=== PATIENT | male | born 1980 | race Caucasian/White ===

== ENCOUNTER 2016-08-30 06:39 | Day surgery (SDC) | payer BC ==
[~2016-08-30] VITALS: Ht 180.3 cm; Wt 108.9 kg
[~2016-08-30 06:39] MED LIST: CEFAZOLIN 2GM PREMIX 50 ML IV ONE; HYDR-2762 PO; LORA0.5T PO
[2016-08-30] MEDS ORDERED: PROCHLORPERAZINE 10 MG/2 ML VIAL. IV PRN ×2 (07:00→10:45)
[2016-08-30] MEDS ORDERED: LIDOCAINE 1% 1 ML SYRINGE. ID PRN ×2 (07:00→10:45)
[2016-08-30] MEDS ORDERED: IV RINGERS,LACTATED 1000ML 1,000 ML IV SCH ×2 (07:00→10:35)
[2016-08-30] MEDS ORDERED: FENTANYL PF 100 MCG/2 ML VIAL. IV PRN ×3 (07:00→10:45)
[2016-08-30] MEDS ORDERED: ONDANSETRON PF 4 MG/2 ML VIAL. IV PRN ×2 (07:00→10:45)
[2016-08-30] MEDS ORDERED: MIDAZOLAM HCL 2 MG/2 ML VIAL. IV ONE (07:30)
[2016-08-30] MEDS ORDERED: BUPIVACAINE-EPI 0.5%-1:200000 50 ML VIAL. ONE (07:58)
[2016-08-30] MEDS ORDERED: PROPOFOL 20 ML IV ONE ×2 (08:01→09:12)
[2016-08-30] MEDS ORDERED: FENTANYL PF 100 MCG/2 ML VIAL. ONE (08:01)
[2016-08-30] MEDS ORDERED: DEXAMETHASONE SOD PHOS 20 MG/5 ML VIAL. ONE (08:01)
[2016-08-30] MEDS ORDERED: ONDANSETRON PF 4 MG/2 ML VIAL. ONE (08:01)
[2016-08-30] MEDS ORDERED: MIDAZOLAM HCL 2 MG/2 ML VIAL. ONE (08:01)
[2016-08-30] MEDS ORDERED: LIDOCAINE 2% 100 MG/5 ML DISP.SYRIN. ONE (08:01)
[2016-08-30] MEDS ORDERED: FAMOTIDINE 20 MG/2 ML VIAL ONE (09:12)
[2016-08-30] MEDS ORDERED: DIPHENHYDRAMINE 50 MG/ML VIAL ONE (09:33)
[2016-08-30] MEDS: FENTANYL PF 100 MCG/2 ML VIAL. IV PRN ×4 (10:26→11:17)
[2016-08-30] MEDS ORDERED: MORPHINE SULFATE 2 MG/ML DISP.SYRIN. ONE (10:39)
[2016-08-30] MEDS ORDERED: HYDROMORPHONE 2 MG/ML VIAL. IV PRN (10:45)
[2016-08-30] MEDS: MORPHINE SULFATE 2 MG/ML DISP.SYRIN. IV PRN ×2 (10:45→10:58)
[2016-08-30] MEDS ORDERED: SEVOFLURANE 61 TO 120 MINUTES. IH ONE (10:58)
--- NOTE | 2016-08-30 10:58 | RAD ---
Left supraclavicular region ultrasound, 08/30/2016: History: Adenopathy, preop evaluation The left supraclavicular region was carefully scanned. There are numerous hypoechoic nodules at this level compatible with enlarged lymph nodes. The largest of these measures 2.5 x 1.4 cm. The skin surface was marked directly over the most superficial of these nodes as requested, to aid in surgical localization. The largest node lies more medially. IMPRESSION: Left supraclavicular adenopathy.
[2016-08-30 11:01] LABS: BASO % 1 % (0-3); EOS % 4 % (0-3); HEMATOCRIT 43.2 % (39.0-53.0); HEMOGLOBIN 14.3 g/dL (13.0-17.5); LYMPH # 1.5 x10^3/uL (1.0-4.8); LYMPH % 23 % (24-48); MEAN CORPUSCULAR HEMOGLOBIN 27 pg (25-35); MEAN CORPUSCULAR HGB CONC 33 g/dL (31-37); MEAN CORPUSCULAR VOLUME 81 fL (79-100); MONO % 5 % (0-9); NEUT % 68 % (31-73); PLATELET COUNT 278 x10^3/uL (140-400); RED BLOOD COUNT 5.33 x10^6/uL (4.30-5.70); RED CELL DISTRIBUTION WIDTH 13.9 % (11.5-14.5); WHITE BLOOD COUNT 6.8 x10^3/uL (4.0-11.0)
[2016-08-30] MEDS ORDERED: hydrALAZINE 20 MG/ML VIAL. ONE (11:12)
[2016-08-30 11:14] LABS: CALCIUM 8.8 mg/dL (8.5-10.1); CREATININE 1.4 mg/dL (0.7-1.3); GFR 56.7; POTASSIUM 4.8 mmol/L (3.5-5.1)
[2016-08-30] MEDS ORDERED: IOHEXOL 240 MG/ML 50ML VIAL. PO ONE (11:15)
[2016-08-30] MEDS ORDERED: IOHEXOL 300 MG/ML 75 ML VIAL IV ONE (11:15)
[2016-08-30] MEDS ORDERED: hydrALAZINE 20 MG/ML VIAL. IVP ONE (11:15)
--- NOTE | 2016-08-30 11:33 | PDOC ---
BRIEF OPERATIVE NOTE Date: Aug 30, 2016 Pre-Op Diagnosis supraclavicular lymphadenopathy, L>R Post-Op Diagnosis same 2/2 metastatic adenocarcinoma Procedure Performed biopsy left supraclavicular LNs Surgeon Kelby Anesthesia Type: General Blood Loss 5cc IV Fluid 400cc Specimens Obtained LNs Findings firm, adherent LN Complications none Additional Remarks Wk # [id number] CELINA DE MD Aug 30, 2016 11:33
--- NOTE | 2016-08-30 11:34 | DISCH ---
DISCHARGE INSTRUCTIONS Condition on Discharge Condition on Discharge: Stable Activity After Discharge Activity Instructions for Disc: Activity as tolerated, Avoid exertion Lifting Instructions after Dis: No heavy lifting Driving Instructions after Dis: Do not drive today Wound Incision Care Wound/Incision Care: Ice to area for comfort Other wound/incision instructi: december shower Sunday Follow-Up Follow up with: Kelby next week CELINA DE MD Aug 30, 2016 11:34
[2016-08-30] MEDS ORDERED: LORAZEPAM 2 MG/ML VIAL IV PRN (11:45)
[2016-08-30 11:50] VITALS: BP 138/83
[2016-08-30] MEDS ORDERED: OXYC-250 PO (11:55)
[2016-08-30] MEDS ORDERED: SENN1TAB70 PO (11:56)
--- NOTE | 2016-08-30 12:53 | RAD ---
CT of the chest with contrast, 08/30/2016: History: Lymphadenopathy Multidetector CT imaging was performed following an IV bolus injection of iodinated contrast material. Multiplanar reconstructions were produced. There is mild mediastinal adenopathy. The largest of these nodes measures approximately 2 x 2.5 cm and lies in the right paratracheal region posterior to the right innominate vein. Smaller mediastinal nodes are present into the anterior mediastinum. There are also edison calcifications in the right paratracheal region and right hilum compatible with old granulomatous disease. The patient's known left supraclavicular adenopathy was not included on this chest study. The thoracic aorta is unremarkable. There are moderate streaky linear opacities in both lungs most likely representing atelectasis in this patient who underwent surgery earlier in the day. No pulmonary mass is seen. There is no evidence of pleural fluid. IMPRESSION: 1. Mild mediastinal adenopathy. 2. Moderate scattered areas of linear atelectasis in both lungs. CT of the abdomen and pelvis with contrast, 08/30/2016: Multidetector CT imaging was performed following oral and IV administration of contrast. The gallbladder surgically absent. No hepatic abnormality is seen. The pancreas is unremarkable. The spleen is of normal size. No renal or adrenal abnormality is detected. The abdominal aorta is unremarkable. There is minimal retrocrural adenopathy. There is mild para-aortic adenopathy with the largest node or edison cluster lying on the left and measuring approximately 25 x 14 mm. No iliac or inguinal adenopathy is seen. There is a small surgical clip in the deep pelvis on the left. The bowel loops are not dilated. There is a 2.5 cm cystic-appearing structure present in the left lower quadrant adjacent to nondilated small bowel loops. The adjacent small bowel loops are of medium density. This may represent a mesenteric cyst or duplication cyst. A low density solid mass is less likely. The appendix is visualized and is unremarkable. No free fluid or free air is evident in the abdomen or pelvis. IMPRESSION: 1. Mild retrocrural and para-aortic adenopathy. Diagnostic considerations include lymphoma or metastatic disease. 2. Small cystic structure related to small bowel loops in the left lower quadrant as described above. PQRS Compliance Statement: One or more of the following individualized dose reduction techniques were utilized for this examination: 1. Automated exposure control 2. Adjustment of the mA and/or kV according to patient size 3. Use of iterative reconstruction technique
--- NOTE | 2016-08-30 17:09 | OP ---
DATE OF SURGERY: 08/30/2016 PREOPERATIVE DIAGNOSIS: Supraclavicular lymphadenopathy, left greater than right. POSTOPERATIVE DIAGNOSIS: Supraumbilical lymphadenopathy, left greater than right secondary to metastatic adenocarcinoma. PROCEDURE PERFORMED: Biopsy, left supraclavicular lymph node. SURGEON: Celina De MD ANESTHESIA: General. BLOOD LOSS: 5 mL. IV FLUID: 400 mL. INDICATIONS: The patient is a 36-year-old with visible and palpable and radiographic evidence of enlarged lymph nodes in both suprapubic areas, left side greater than right. He is brought for biopsy. DESCRIPTION OF PROCEDURE: The patient was brought to the operating suite, given a general LMA and the left chest and neck were prepped and draped in usual sterile fashion. Preoperative localization with ultrasound was used as a guide for placement of the skin incision over the palpable change. Skin was infiltrated with 0.5% Marcaine with epinephrine and incised. Dissection carried through the platysma muscle. Vein crossing over the area of dissection was ligated with 3-0 Vicryl tie to allow exposure of the underlying lymph nodes. Two separate specimens were harvested; both appeared to represent a cluster of 2 nodes. Good hemostasis was present at completion of the node removal. When a correct sponge count was obtained, the wound was closed with interrupted inverted 3-0 Vicryl in the subcutaneous tissue, a subcuticular 4-0 Monocryl with Steri-Strips in the skin, and sterile dressing applied. The patient was awakened from his anesthetic and taken to the recovery room in satisfactory condition. CELINA DE MD DR: KESHA/carl JOB#: [id number] / [id number]
--- NOTE | 2016-09-01 13:23 | PATHOLOGY ---
PATHOLOGY REPORT * * * * * * * * FINAL DIAGNOSIS: A. Lymph nodes, left supraclavicular lymph node biopsy: - METASTATIC MODERATELY TO POORLY DIFFERENTIATED ADENOCARCINOMA. SEE COMMENT. B. Lymph nodes, left supraclavicular lymph node biopsy: - METASTATIC ADENOCARCINOMA, MODERATELY TO POORLY DIFFERENTIATED. COMMENT: Sections of the left supraclavicular lymph node biopsies show extensive replacement of lymph node by a metastatic moderately to poorly differentiated adenocarcinoma. There are focal areas of tumor necrosis. Mitotic figures are readily demonstrated. There is focal tumor identified within perinodal lymphovascular spaces. A panel of immunohistochemical stains is obtained and yields the following results: Cytokeratin7 (A2): tumor cells positive; Rlibbrywcik88 (A2): tumor cells positive; CDX2(A2): tumor cells focally positive; TTF-1 (A2): tumor cells negative; Napsin A (A2): tumor cells negative. The morphologic and immunophenotypic findings are supportive of the diagnosis of metastatic moderately to poorly differentiated adenocarcinoma. Possible primary sites include pancreaticobiliary tract and upper and lower gastrointestinal tract. Correlate clinically. The case is also examined by Dr. Isaac Marroquin, who concurs with the diagnosis. (JPM:csd; d/t: 09/01/2016) Special stain performed: Immunoperoxidase stains for CK7, CK20, CDX2, TTF-1, Napsin A all performed on block A2. REPORT ELECTRONICALLY SIGNED BY: Fabian Cobian M.D. DATE/TIME: 09/01/2016 13:23 * * * * * * * * GROSS PATHOLOGY: A. The specimen is received fresh for intraoperative consultation and is designated "left supraclavicular lymph node." This consists of two adherent slightly firm pink-sanchez lymph nodes with small amounts of attached yellow-red fatty tissue. These measure 1.5 and 1.3 cm in greatest dimension. The specimen is bisected. The cut surface of each node is pink-sanchez with a few punctate pale yellowish sanchez areas of possible necrosis. Two touch preparations are made and submitted for H and E staining. A mortician supplies sales representative portion of one of the nodes is submitted for frozen section as FSA1. The tissue remaining from frozen section is submitted for permanent sections as A1. The remainder of the lymph nodes are submitted for microscopy as A2 and A3. B. The specimen is received fresh and is designated "left supraclavicular lymph node." This consists of two adherent pink-red lymph nodes which measure 1.2 and 1.1 cm in greatest dimension. The specimen is bisected. Sectioning reveals a sanchez firm cut surface with focal apparent yellowish areas of necrosis. This is submitted for microscopy as B1 and B2. (JPM:mgr:csd; d/t: 08/30/16) FROZEN SECTION DIAGNOSIS: (Milvia Cobian M.D.) A. Left supraclavicular lymph nodes (two) biopsy: - METASTATIC ADENOCARCINOMA. The results are reported to Dr. Lama in the pathology area. (JPM:mgr; d/t: 08/30/16) Testing performed [place] [address] INITIAL CPT CODE(S): A; 49867, 25255, 93342, 37039, 96372, 13809, 05950 B; 72950 Professional services performed by [facility] [place] [address] Technical services performed by [facility] at [address] [place] [address], [facility] [address] [address]. SPECIMEN(S) RECEIVED: A.Left supraclavicular lymph node B.Left supraclavicular lymph node CLINICAL HISTORY: Supraclavicular lymphadenopathy PATIENT: ROBB MCDOWELL DOB/AGE: 5 1980 (Age: 36) PATIENT #: [id number] ALT CASE #: SPECIMEN COLLECTION DATE: 08/30/2016 SPECIMEN RECEIVED DATE: 08/30/2016 [facility] - [address] [place] [address] - PHONE: [phone] * * * END OF REPORT * * *
== END 2016-08-30 12:42 ==
LOC: SURG 06:39
PROVIDERS: ATTEND Surgery
DX: R59.1 Generalized enlarged lymph nodes (principal); K21.9 Gastro-esophageal reflux disease without esophagitis; F41.9 Anxiety disorder, unspecified; F17.200 Nicotine dependence, unspecified, uncomplicated; Z72.89 Other problems related to lifestyle; Z90.49 Acquired absence of other specified parts of digestive tract
CPT/HCPCS: 36415; 38525; 71260; 74177; 76536; 80048; 85027; J0360; J0690; J1200; J2060; J2250; J2270; J2405; J2704; J3010; Q9966; Q9967; S0028; J1100

== ENCOUNTER 2016-10-02 06:07 | Inpatient (IN) | payer BC ==
[2016-10-02] VITALS (10 sets, daily range): BP systolic 128–170; BP diastolic 75–111
[~2016-10-02] VITALS: Ht 180.3 cm; Wt 110.7 kg
[~2016-10-02 06:07] MED LIST changes: -CEFAZOLIN 2GM PREMIX 50 ML IV ONE; +CEFOXITIN 1GM IVPB FOR OMNI 50 ML IV PRN; +HEPARIN S0DIUM 5,000 UNIT in IV NORMAL SALINE 500ML BAG 500 ML IRR ONE; +OXYC-250 PO; +SENN1TAB70 PO
[2016-10-02] MEDS ORDERED: MORPHINE SULFATE 2 MG/ML DISP.SYRIN. IV PRN (07:00)
[2016-10-02] MEDS ORDERED: LIDOCAINE 1% 1 ML SYRINGE. ID PRN (07:00)
[2016-10-02] MEDS ORDERED: LIDOCAINE 1%/EPI 1:100,000 20 ML VIAL. ONE (07:00)
[2016-10-02] MEDS ORDERED: ONDANSETRON PF 4 MG/2 ML VIAL. IV PRN ×2 (07:00→12:15)
[2016-10-02] MEDS ORDERED: HYDROMORPHONE 2 MG/ML VIAL. IV PRN (07:00)
[2016-10-02] MEDS ORDERED: PROCHLORPERAZINE 10 MG/2 ML VIAL. IV PRN (07:00)
[2016-10-02] MEDS ORDERED: FENTANYL PF 100 MCG/2 ML VIAL. IV PRN (07:00)
[2016-10-02] MEDS ORDERED: HEPARIN PF 500 UNIT/5 ML DISP.SYRIN. IV ONE ×2 (07:00→08:00)
[2016-10-02] MEDS ORDERED: VANCOMYCIN 1GM IVPB FOR OMNI 250 ML ONE (07:02)
[2016-10-02] MEDS: IV RINGERS,LACTATED 1000ML 1,000 ML IV SCH ×2 (07:06→12:24)
[2016-10-02] MEDS ORDERED: ONDANSETRON PF 4 MG/2 ML VIAL. ONE (07:09)
[2016-10-02] MEDS ORDERED: DEXAMETHASONE SOD PHOS 20 MG/5 ML VIAL. ONE (07:09)
[2016-10-02] MEDS ORDERED: PROPOFOL 20 ML IV ONE (07:10)
[2016-10-02] MEDS ORDERED: MIDAZOLAM HCL 2 MG/2 ML VIAL. ONE (07:10)
[2016-10-02] MEDS ORDERED: LIDOCAINE 2% 100 MG/5 ML DISP.SYRIN. ONE (07:10)
[2016-10-02] MEDS ORDERED: FENTANYL PF 250 MCG/5 ML VIAL. ONE ×2 (07:10→07:20)
[2016-10-02] MEDS ORDERED: ROCURONIUM 50 MG/5 ML VIAL. ONE ×2 (07:10→09:52)
[2016-10-02] MEDS ORDERED: ACETAMINOPHEN INTRAVENOUS 100 ML IV ONE (07:19)
[2016-10-02] MEDS ORDERED: MIDAZOLAM HCL/PF 5 MG/5 ML VIAL ONE (07:19)
[2016-10-02] MEDS ORDERED: SUCCINYLCHOLINE 200 MG/10 ML VIAL. ONE (07:21)
[2016-10-02 07:35] LABS: INR 1.2 (0.8-1.1); PROTHROMBIN TIME PATIENT 14.4 SEC (11.7-14.0)
--- NOTE | 2016-10-02 07:35 | PDOC ---
MODERATE SEDATION ASSESSMENT RISKS/ALTERNATIVES Risks/Alternatives Risks and alternatives of this type of sedation and procedure discussed with: RISK/ALTERNATIVES: Patient H & P ON CHART H & P H & P on chart and reviewed for co-morbid conditions and appropriate labs. H&P ON CHART: Yes STATUS PREG STATUS ASSESSED: N/A MEDS/ALLERGIES REVIEWED Meds/Allergies Reviewed Medications and Allergies including time and route of recently administered narcotics and sedatives. MEDS/ALLERGIES REVIEWED: Yes ASA RATING ASA RATING: III AIRWAY ASSESSMENT Airway Assessment Airway patency, oral function limitations, presence of caps, crowns, dentures, partials, and ability to extend neck assessed. AIRWAY ASSESSMENT: Yes MALLAMPATI SCORE MALLAMPATI SCORE: II PRE-SEDATION ASSESSMENT PRE-SEDATION ASSESSMENT: Yes MARIO BRICENO MD Oct 02, 2016 07:35
--- NOTE | 2016-10-02 07:43 | PDOC1 ---
History and Physical Date of Procedure Date of Admission 10/02/16 Procedure Procedure Image guided Power Port insertion Indication Indication 36 YO male with metastatic colon cancer. Previous supraclavicular node bx followed by staging CT CAP and PET scan. Power Port insertion requested by general surgery, prior to sigmoid resection. Past Medical History Past Medical History See Nursing Pre Procedure PMH Past Surgical History Past Surgical History See Nursing Pre procedure PSH Current Medications Current Medications Current Medications Ondansetron HCl (Zofran) 4 mg PRN Q6HRS PRN IV Nausea; Start 10/02/16 at 07:00 ; Stop 10/03/16 at 06:59 Fentanyl Citrate (Fentanyl 2ml Vial) 25 mcg PRN Q5MIN PRN IV MILD PAIN; Start 10/02/16 at 07:00; Stop 10/03/16 at 06:59 Fentanyl Citrate (Fentanyl 2ml Vial) 50 mcg PRN Q5MIN PRN IV MODERATE PAIN; Start 10/02/16 at 07:00; Stop 10/03/16 at 06:59 Morphine Sulfate 1 mg 1 mg PRN Q10MIN PRN IV SEVERE PAIN; Start 10/02/16 at 07: 00; Stop 10/03/16 at 06:59 Lactated Ringer's (Iv Lactated Ringers) 1,000 ml @ 30 mls/hr Q24H IV Last administered on 10/02/16t 07:06; Start 10/02/16 at 07:00; Stop 10/02/16 at 18:59 Lidocaine HCl 2 ml 1X PRN PRN ID IV START; Start 10/02/16 at 07:00; Stop at 06:59 Hydromorphone HCl (Dilaudid) 0.5 mg PRN Q10MIN PRN IV SEVERE PAIN, Second choice; Start 10/02/16 at 07:00; Stop 10/03/16 at 06:59 Prochlorperazine Edisylate 5 mg 5 mg PACU PRN PRN IV NAUSEA; Start 10/02/16 at 07:00; Stop 10/03/16 at 06:59 Heparin Sodium (Porcine) 5000 unit/Sodium Chloride 505 ml @ 505 mls/hr 1X PERIOP ONCE IRR ; Start 10/02/16 at 06:00; Stop 10/02/16 at 06:59; Status DC Cefoxitin Sodium (Mefoxin 1gm Ivpb For Omni) 50 ml @ 100 mls/hr 1X PREOP PRN IV PRIOR TO PROCEDURE; Start 10/02/16 at 06:00; Stop 10/02/16 at 18:00 Heparin Sodium (Porcine) (Hep Lock Adult) 500 unit STK-MED ONCE IV ; Start 10/02 at 07:00; Stop 10/02/16 at 07:01; Status DC Lidocaine/ Epinephrine 20 ml 20 ml STK-MED ONCE .ROUTE ; Start 10/02/16 at 07:00 ; Stop 10/02/16 at 07:01; Status DC Heparin Sodium/ Sodium Chloride 500 ml @ As Directed STK-MED ONCE .ROUTE ; Start 10/02/16 at 07:00; Stop 10/02/16 at 07:01; Status DC Vancomycin HCl 250 ml @ As Directed STK-MED ONCE .ROUTE ; Start 10/02/16 at 07: 02; Stop 10/02/16 at 07:03; Status DC Dexamethasone Sodium Phosphate (Decadron) 20 mg STK-MED ONCE .ROUTE ; Start at 07:09; Stop 10/02/16 at 07:10; Status DC Ondansetron HCl 4 mg 4 mg STK-MED ONCE .ROUTE ; Start 10/02/16 at 07:09; Stop at 07:10; Status DC Propofol (Diprivan) 20 ml @ As Directed STK-MED ONCE IV ; Start 10/02/16 at 07: 10; Stop 10/02/16 at 07:11; Status DC Lidocaine HCl 100 mg STK-MED ONCE .ROUTE ; Start 10/02/16 at 07:10; Stop at 07:11; Status DC Midazolam HCl (Versed) 2 mg STK-MED ONCE .ROUTE ; Start 10/02/16 at 07:10; Stop 10/02/16 at 07:11; Status DC Fentanyl Citrate (Fentanyl 5ml Vial) 250 mcg STK-MED ONCE .ROUTE ; Start at 07:10; Stop 10/02/16 at 07:11; Status DC Rocuronium Foster 50 mg 50 mg STK-MED ONCE .ROUTE ; Start 10/02/16 at 07:10; Stop 10/02/16 at 07:11; Status DC Acetaminophen (Ofirmev) 100 ml @ As Directed STK-MED ONCE IV ; Start 10/02/16 at 07:19; Stop 10/02/16 at 07:20; Status DC Midazolam HCl (Versed) 5 mg STK-MED ONCE .ROUTE ; Start 10/02/16 at 07:19; Stop 10/02/16 at 07:20; Status DC Fentanyl Citrate (Fentanyl 5ml Vial) 250 mcg STK-MED ONCE .ROUTE ; Start at 07:20; Stop 10/02/16 at 07:21; Status DC Succinylcholine Chloride (Anectine) 200 mg STK-MED ONCE .ROUTE ; Start 10/02/16 at 07:21; Stop 10/02/16 at 07:22; Status DC Active Scripts Active Reported Stool Softener Tablet (Sennosides/Docusate Sodium) 1 Each Tablet 1 Each PO Percocet 10-325 Mg Tablet (Oxycodone/Acetaminophen) 1 Each Tablet 1 Tab PO Q4HRS PRN Lorazepam 0.5 Mg Tablet 0.5 Mg PO PRN BID PRN Allergies Allergies: Coded Allergies: cortisone (Verified Allergy, Intermediate, Hives, 10/02/16) ITCHING tramadol (Verified Allergy, Intermediate, 10/02/16) EXTREME MIGRAINES Physical Exam Vital Signs Vital Signs Date Time Temp Pulse Resp B/P Pulse Ox O2 Delivery O2 Flow Rate FiO2 10/02/16 06:43 97.8 83 18 133/89 96 Room Air 97.8 Lungs: Clear to auscultation Heart: Regular rate Psych/Mental Status: Mental status NL Diagnostic Data/Imaging Images [facility] CT neck from 08/16/[address] CAP from 08/30/16 reviewed PMC PET from 09/14/16 reviewed Assessment Assessment Met colon cancer Problems: Plan Plan Image guided Power Port insertion MARIO BRICENO MD Oct 02, 2016 07:43
[2016-10-02] MEDS ORDERED: MIDAZOLAM HCL/PF 5 MG/5 ML VIAL IV ONE (08:00)
[2016-10-02] MEDS ORDERED: FENTANYL PF 250 MCG/5 ML VIAL. IV ONE (08:00)
[2016-10-02] MEDS ORDERED: VANCOMYCIN 1GM IVPB FOR OMNI 250 ML IRR ONE (08:00)
[2016-10-02] MEDS ORDERED: LIDOCAINE 1%/EPI 1:100,000 20 ML VIAL. IJ ONE (08:30)
--- NOTE | 2016-10-02 08:36 | PDOC ---
Exam Silk Worker Silk Worker Krystina Contact Finger Assembler Contact Finger Assembler Amilcar Galvan Pre-Procedure Diagnosis Pre-Procedure Diagnosis Metastatic colon cancer Post-Procedure Diagnosis Post-Procedure Diagnosis Same Procedure Performed Procedure Performed Sono/fluoro guided Power Port insertion Type of Anesthesia Type of Anesthesia Local + Mod sedation Estimated Blood Loss EBL: Minimal Drain/Tubes Drains/Tubes Rt IJ 8F tunneled Power Port Condition of Patient Condition of Patient Stable. No apparent complication. Disposition Disposition From IR to OR for sigmoid resection with Dr Lama. OK to use Power Port. Full report to follow. MARIO BRICENO MD Oct 02, 2016 08:36
--- NOTE | 2016-10-02 08:52 | RAD ---
Ultrasound and fluoroscopy guided right IJ power port insertion Indication: 36-year-old male with metastatic colon cancer. Power Port insertion has been requested for chemotherapy. Fluoroscopy time: 1.1 minutes Kerma-area product: 5 Gycm2 Moderate sedation: 43 minutes moderate sedation was provided utilizing a total of 4.5 mg Versed and 225 mcg fentanyl, IV. The patient was appropriately monitored by a qualified independent observer throughout the course of moderate sedation. Antibiotic: A single dose of Mefoxin was administered within 1 hour of the procedure start time. Consent: The procedure was explained in its entirety to the patient and/or the patient's designated patient admitting representative by a member of the treatment team. This included a discussion of risks and benefits and commonly accepted alternatives to the procedure, as well as expected consequences of no treatment at all. Discussion of risks included, but was not limited to, those that are most frequent and those that are rare, but possibly severe or life-threatening, as well as the possibility of unforeseen complications. Sterility: All elements of maximal sterile barrier technique, including the use of a cap, mask, sterile gown, sterile gloves, large sterile sheet, appropriate hand hygiene, and 2% chlorhexidine for cutaneous antisepsis (or acceptable alternative antiseptic per current guidelines) were utilized. Procedure: Informed consent was obtained from the patient. He was placed supine on the angiography table. Preliminary ultrasound examination of right neck revealed wide patency of right internal jugular vein, which was documented with a single hard copy ultrasound image. Right neck and upper chest were then prepped and draped in the usual sterile fashion, utilizing all elements of maximal sterile barrier technique, as described above. Moderate sedation was provided with IV Versed and fentanyl. 1 g Mefoxin was given IV, prophylactically. Using aseptic technique and local anesthesia, a small skin incision was made lateral to right internal jugular vein, just above clavicle. Using aseptic technique, local anesthesia, direct ultrasound guidance, and the micropuncture system, successful percutaneous entry was achieved into right internal jugular vein. The right IJ venostomy tract was then dilated and the 8 [place] catheter from a Bard power port system was easily advanced centrally through an 8.5 [place] peel-away sheath, and was positioned with this tip at the level of upper right atrium utilizing fluoroscopic guidance. A skin site suitable for placement of the power port body was then selected and marked along upper anterior aspect of right chest, overlying anterior aspect of right second rib. Using aseptic technique and local anesthesia, a horizontally oriented skin incision was made in this location. A subcutaneous chest wall pocket was then created and was packed with vancomycin soaked gauze. A subcutaneous tunnel was then fashioned between the chest wall pocket and the initial supraclavicular incision. The 8 [place] power port catheter was then pulled through the subcutaneous tunnel from superior to inferior, utilizing the tunneling device provided. The catheter was then trimmed to an appropriate length and was connected to the power port body, which had been previously flushed with, and soaked in, vancomycin solution. The vancomycin soaked gauze was then removed from the chest wall pocket, which was then copiously irrigated with vancomycin solution. The power port body was then easily introduced into the chest wall pocket and was secured in place utilizing two 2-0 Vicryl sutures. The power port was then accessed utilizing a Patel needle, was documented to flush and aspirate normally, and was packed with heparinized saline. The chest incision was then closed with 2-0 Vicryl, 4-0 Vicryl, Steri-Strips, and sterile dressing. The small supraclavicular incision was closed with 4-0 Vicryl, Steri-Strips, and sterile dressing. Patient tolerated the procedure well without apparent complication. Satisfactory position of the power port was confirmed with a single fluoroscopic spot image. Impression: Successful, uneventful ultrasound and fluoroscopy guided placement of right IJ 8 [place] tunneled power port, as described.
[2016-10-02] MEDS ORDERED: KETOROLAC 60 MG/2 ML SYRINGE FOR OR. ONE (10:12)
[2016-10-02] MEDS ORDERED: NEOSTIGMINE METHYLSULFATE 5 MG/5 ML SYRINGE. ONE (10:28)
[2016-10-02] MEDS ORDERED: GLYCOPYRROLATE 1 MG/5 ML VIAL. ONE (10:28)
[2016-10-02] MEDS ORDERED: METRONIDAZOLE PREMIX 500 MG/100 ML BAG. IV ONE (11:00)
[2016-10-02] MEDS ORDERED: METRONIDAZOLE 500mg PREMIX 100 ML IV ONE ×2 (11:00)
[2016-10-02] MEDS: POTASSIUM CL 20MEQ-0.45% NACL 1,000 ML IV SCH ×2 (12:07→22:07)
[2016-10-02] MEDS ORDERED: NALOXONE 0.4 MG/ML VIAL. IV PRN (12:15)
[2016-10-02] MEDS ORDERED: DIPHENHYDRAMINE 50 MG/ML VIAL IV PRN (12:15)
[2016-10-02] MEDS ORDERED: HYDROMORPHONE STANDARD PCA 30 ML IV PRN (12:15)
[2016-10-02] MEDS ORDERED: LORAZEPAM 0.5 MG TABLET. PO PRN (12:15)
[2016-10-02] MEDS ORDERED: 0.9 % SODIUM CHLORIDE 10 ML DISP.SYRIN. IV PRN (12:15)
[2016-10-02] MEDS ORDERED: CEFOXITIN 1GM IVPB FOR OMNI 50 ML IV ONE (12:15)
--- NOTE | 2016-10-02 12:16 | PDOC ---
BRIEF OPERATIVE NOTE Date: Oct 02, 2016 Pre-Op Diagnosis cancer sigmoid Post-Op Diagnosis same Procedure Performed rigid proctoscopy,sigmoid resection Surgeon Kelby Encinas CFA Anesthesia Type: General Blood Loss 300cc IV Fluid 3400cc Urine Output 150cc Specimens Obtained sigmoid Findings regional LN involvement Complications none CELINA DE MD Oct 02, 2016 12:16
[2016-10-02] MEDS: FENTANYL PF 100 MCG/2 ML VIAL. IV PRN ×2 (12:26→12:38)
[2016-10-02] MEDS ORDERED: HYDROMORPHONE STANDARD PCA 30 ML IV ONE (12:33)
[2016-10-02] MEDS ORDERED: SEVOFLURANE > 120 MINUTES. IH ONE (14:28)
[2016-10-02] MEDS ORDERED: INFLUENZA VAX SCREEN BY RX. MC PRN (15:15)
[2016-10-02] MEDS ORDERED: FLU VACC QUAD 2016-17 (36MOS+)/PF 0.5 ML SYRINGE. VAX IM ONE (15:30)
--- NOTE | 2016-10-02 15:53 | RAD ---
Portable abdomen, 10/02/2016: History: Postop evaluation Surgical skin clips overlie the lower abdomen and pelvis in the midline. There appears to be a Eron type drain at this level as well as an additional upper pelvic drain. The abdominal gas pattern is unremarkable. There is no evidence of a retained surgical instrument, needle or radiopaque sponge on this single view.
--- NOTE | 2016-10-02 18:27 | OP ---
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 PROCEDURES: 1. Rigid proctoscopy. 2. Sigmoid resection. SURGEON: Kishor De MD [employer] PARALEGAL: MARYJANE Encinas ANESTHESIA: General endotracheal. ESTIMATED BLOOD LOSS: 300 mL. INTRAVENOUS FLUIDS: 3400 mL. URINE OUTPUT: 150 mL. INDICATIONS: The patient is a 36-year-old with a cancer in the sigmoid and positive nodes which were biopsied previously from his left supraclavicular area. He was brought for resection of the primary tumor. OPERATIVE FINDINGS: Right upper quadrant exploration was limited because of previous cholecystectomy, small bowel was unremarkable. Appendix was small and fibrotic. The ascending, transverse and descending colon were unremarkable. In the distal sigmoid colon was a palpable mass with firm enlarged mesocolic nodes suggestive of regional metastasis. A tattoo was present distal to the process. DESCRIPTION OF PROCEDURE: The patient brought to the operating suite, given a general endotracheal anesthetic. Alexander catheter placed to dependent drainage of the abdomen. The patient placed in lithotomy. Digital rectal exam was done and the rigid scope was inserted into the anal canal and advanced under direct observation to approximately 18 cm from the anal verge. No tumor encountered at that juncture. Scope was slowly removed. The abdomen and perineum were prepped and draped in usual sterile fashion. Midline incision from umbilicus to pubis was made through the skin and subcutaneous tissue down to the anterior sheath. Bleeders were cauterized as identified. The abdomen was carefully entered with sharp dissection, extended with cautery taking care to avoid injury to abdominal contents. Abdomen explored with results as noted above. The Omni self-retaining retractor was used for exposure. We mobilized the sigmoid colon off the left pelvic wall, taking care to avoid the ureter. The small bowel was packed cephalad with moist laps. An area for transection of the colon in anticipation of anastomosis was selected, skeletonized, and divided with a OCTAVIA stapler. The mesocolon was then serially clamped, divided and ligated down to the entrance into the sacral hollow. Vessels were controlled with Vicryl ties and 2-0 silk stick ties. Good hemostasis was achieved. With blunt dissection, we freed the mesocolon out of the sacral hollow down to a point beyond the area of the mass and tattoo. We skeletonized the bowel, it was divided with a contour stapler after harvesting the mesocolon. This was passed off as a specimen. An end-to-end anastomosis was then fashioned by placing a posterior row of interrupted 3-0 Vicryl. The bowel was occluded proximally with an atraumatic clamp and the staple lines were excised. Mucosal anastomosis was created with a running locked 3-0 chromic, posteriorly then anteriorly. Clamp removed. Anastomosis completed with an anterior row of interrupted 3-0 Vicryl. There was competency and patency of the anastomosis. The rigid scope was inserted into the anal canal. The bowels occluded proximal to the anastomosis and the anastomosis submerged in saline irrigation. Insufflation of the bowel distended the colon without evidence of leak at the anastomotic site. Bowel decompressed. Pelvic irrigation evacuated and gloves were changed. We again irrigated the pelvis and checked for hemostasis. When present and a correct sponge count was obtained. A 19-[place] round [place] drain was brought through a right lower quadrant stab wound, left in the true pelvis for postoperative drainage. When a second sponge count was correct, the incision was closed in a single layer using looped 0 PDS in running fashion, tied in the middle. A Eron drain was isolated in the depths of the subcutaneous tissue and secured inferiorly with silk stitch. Skin was then closed with scott. Sterile dressings applied. Postop foreign body film was negative for unexplained foreign body. The patient was awakened from his anesthetic and taken to the recovery room in satisfactory condition. KISHOR DE MD DR: KESHA/carl JOB#: [id number] / [id number]
[2016-10-02] MEDS: NICOTINE 21MG PATCH. TD SCH (21:00)
[2016-10-02] MEDS: ENOXAPARIN 40 MG/0.4 ML DISP.SYRIN. SQ SCH (22:00)
[2016-10-03] MEDS: POTASSIUM CL 20MEQ-0.45% NACL 1,000 ML IV SCH ×2 (02:07→13:00)
[2016-10-03 03:36] VITALS: BP 144/82
[2016-10-03] MEDS ORDERED: MAG HYDROX/ALUMINUM HYDROX/SMC 30 ML ORAL.SUSP PO PRN (04:45)
[2016-10-03] MEDS: PANTOPRAZOLE IV PUSH 40 MG VIAL. IVP SCH (05:29)
[2016-10-03 06:15] LABS: BASO % 0 % (0-3); EOS % 0 % (0-3); HEMATOCRIT 41.8 % (39.0-53.0); HEMOGLOBIN 13.5 g/dL (13.0-17.5); LYMPH # 1.7 x10^3/uL (1.0-4.8); LYMPH % 16 % (24-48); MEAN CORPUSCULAR HEMOGLOBIN 26 pg (25-35); MEAN CORPUSCULAR HGB CONC 32 g/dL (31-37); MEAN CORPUSCULAR VOLUME 81 fL (79-100); MONO % 12 % (0-9); NEUT % 71 % (31-73); PLATELET COUNT 284 x10^3/uL (140-400); RED BLOOD COUNT 5.13 x10^6/uL (4.30-5.70); RED CELL DISTRIBUTION WIDTH 14.3 % (11.5-14.5); WHITE BLOOD COUNT 10.6 x10^3/uL (4.0-11.0)
[2016-10-03 06:32] LABS: CALCIUM 8.7 mg/dL (8.5-10.1); CREATININE 1.2 mg/dL (0.7-1.3); GFR 67.8; POTASSIUM 4.1 mmol/L (3.5-5.1)
[2016-10-03 07:00] VITALS: BP 135/85
[2016-10-03] MEDS ORDERED: PANTOPRAZOLE IV PUSH 40 MG VIAL. IVP SCH (07:30)
--- NOTE | 2016-10-03 10:54 | PDOC ---
SURGICAL PROGRESS NOTE Subjective POD 1 sigmoid resection just had mcconnell removed adequate pain control asking for more than clears Vital Signs Vital Signs Date Time Temp Pulse Resp B/P Pulse Ox O2 Delivery O2 Flow Rate FiO2 10/03/16 07:00 99.1 83 18 135/85 93 Room Air 99.1 10/02/16 14:45 2.0 I&O Intake and Output 10/03/16 07:00 Intake Total 5700 ml Output Total 3110 ml Balance 2590 ml Intake Oral 300 ml IV Total 4300 ml Other 1100 ml Output Urine Total 2750 ml Drainage Total 60 ml Estimated Blood Loss 300 ml PATIENT HAS A MCCONNELL: No General: Alert, Oriented X3, Cooperative, No acute distress Abdomen: Soft, Other (dressing intact, SWATI with small volume of serosanguineous output) Labs Laboratory Tests Test 10/02/16 06:50 10/03/16 05:20 Prothrombin Time 14.4SEC (11.7-14.0) Prothromb Time International Ratio 1.2 (0.8-1.1) White Blood Count 10.6x10^3/uL (4.0-11.0) Red Blood Count 5.13x10^6/uL (4.30-5.70) Hemoglobin 13.5g/dL (13.0-17.5) Hematocrit 41.8% (39.0-53.0) Mean Corpuscular Volume 81fL (79-100) Mean Corpuscular Hemoglobin 26pg (25-35) Mean Corpuscular Hemoglobin Concent 32g/dL (31-37) Red Cell Distribution Width 14.3% (11.5-14.5) Platelet Count 284x10^3/uL (140-400) Neutrophils (%) (Auto) 71% (31-73) Lymphocytes (%) (Auto) 16% (24-48) Monocytes (%) (Auto) 12% (0-9) Eosinophils (%) (Auto) 0% (0-3) Basophils (%) (Auto) 0% (0-3) Neutrophils # (Auto) 7.5x10^3uL (1.8-7.7) Lymphocytes # (Auto) 1.7x10^3/uL (1.0-4.8) Monocytes # (Auto) 1.3x10^3/uL (0.0-1.1) Eosinophils # (Auto) 0.0x10^3/uL (0.0-0.7) Basophils # (Auto) 0.0x10^3/uL (0.0-0.2) Sodium Level 139mmol/L (136-145) Potassium Level 4.1mmol/L (3.5-5.1) Chloride Level 104mmol/L (98-107) Carbon Dioxide Level 24mmol/L (21-32) Anion Gap 11 (6-14) Blood Urea Nitrogen 10mg/dL (8-26) Creatinine 1.2mg/dL (0.7-1.3) Estimated GFR (Cockcroft-Gault) 67.8 Glucose Level 96mg/dL (70-99) Calcium Level 8.7mg/dL (8.5-10.1) Laboratory Tests Test 10/03/16 05:20 White Blood Count 10.6x10^3/uL (4.0-11.0) Red Blood Count 5.13x10^6/uL (4.30-5.70) Hemoglobin 13.5g/dL (13.0-17.5) Hematocrit 41.8% (39.0-53.0) Mean Corpuscular Volume 81fL (79-100) Mean Corpuscular Hemoglobin 26pg (25-35) Mean Corpuscular Hemoglobin Concent 32g/dL (31-37) Red Cell Distribution Width 14.3% (11.5-14.5) Platelet Count 284x10^3/uL (140-400) Neutrophils (%) (Auto) 71% (31-73) Lymphocytes (%) (Auto) 16% (24-48) Monocytes (%) (Auto) 12% (0-9) Eosinophils (%) (Auto) 0% (0-3) Basophils (%) (Auto) 0% (0-3) Neutrophils # (Auto) 7.5x10^3uL (1.8-7.7) Lymphocytes # (Auto) 1.7x10^3/uL (1.0-4.8) Monocytes # (Auto) 1.3x10^3/uL (0.0-1.1) Eosinophils # (Auto) 0.0x10^3/uL (0.0-0.7) Basophils # (Auto) 0.0x10^3/uL (0.0-0.2) Sodium Level 139mmol/L (136-145) Potassium Level 4.1mmol/L (3.5-5.1) Chloride Level 104mmol/L (98-107) Carbon Dioxide Level 24mmol/L (21-32) Anion Gap 11 (6-14) Blood Urea Nitrogen 10mg/dL (8-26) Creatinine 1.2mg/dL (0.7-1.3) Estimated GFR (Cockcroft-Gault) 67.8 Glucose Level 96mg/dL (70-99) Calcium Level 8.7mg/dL (8.5-10.1) Problem List Problems Medical Problems: (1) Cancer of sigmoid colon metastatic to intra-abdominal lymph node Status: Acute Assessment/Plan s/p sigmoid resection advance diet d/c mcconnell ambulate Problems: CELINA DE MD Oct 03, 2016 10:54
[2016-10-03 11:00] VITALS: BP 143/101
[2016-10-03] MEDS: NICOTINE 21MG PATCH. TD SCH (13:01)
[2016-10-03 15:00] VITALS: BP 140/96
[2016-10-03 19:00] VITALS: BP 142/92
[2016-10-03] MEDS: ENOXAPARIN 40 MG/0.4 ML DISP.SYRIN. SQ SCH (22:25)
[2016-10-03 23:00] VITALS: BP 131/91
[2016-10-04] MEDS: POTASSIUM CL 20MEQ-0.45% NACL 1,000 ML IV SCH (02:19)
[2016-10-04 02:30] VITALS: BP 134/94
[2016-10-04 07:00] VITALS: BP 135/98
[2016-10-04] MEDS: PANTOPRAZOLE IV PUSH 40 MG VIAL. IVP SCH (08:02)
[2016-10-04] MEDS: NICOTINE 21MG PATCH. TD SCH (09:00)
[2016-10-04 11:00] VITALS: BP 144/104
--- NOTE | 2016-10-04 14:23 | PDOC ---
SURGICAL PROGRESS NOTE Subjective no new complaints adequate pain control without a lot of PRACTICE MANAGEMENT CONSULTANT use no flatus yet Vital Signs Vital Signs Date Time Temp Pulse Resp B/P Pulse Ox O2 Delivery O2 Flow Rate FiO2 10/04/16 11:00 98.5 94 16 144/104 97 Room Air 98.5 I&O Intake and Output 10/04/16 07:00 Intake Total 778 ml Output Total 2890 ml Balance -2112 ml Other 778 ml Output Urine Total 2800 ml Drainage Total 90 ml PATIENT HAS A BROWN: No General: Alert, Oriented X3, Cooperative, No acute distress Abdomen: Soft, Other (dressing dry) Labs Laboratory Tests Test 10/03/16 05:20 White Blood Count 10.6x10^3/uL (4.0-11.0) Red Blood Count 5.13x10^6/uL (4.30-5.70) Hemoglobin 13.5g/dL (13.0-17.5) Hematocrit 41.8% (39.0-53.0) Mean Corpuscular Volume 81fL (79-100) Mean Corpuscular Hemoglobin 26pg (25-35) Mean Corpuscular Hemoglobin Concent 32g/dL (31-37) Red Cell Distribution Width 14.3% (11.5-14.5) Platelet Count 284x10^3/uL (140-400) Neutrophils (%) (Auto) 71% (31-73) Lymphocytes (%) (Auto) 16% (24-48) Monocytes (%) (Auto) 12% (0-9) Eosinophils (%) (Auto) 0% (0-3) Basophils (%) (Auto) 0% (0-3) Neutrophils # (Auto) 7.5x10^3uL (1.8-7.7) Lymphocytes # (Auto) 1.7x10^3/uL (1.0-4.8) Monocytes # (Auto) 1.3x10^3/uL (0.0-1.1) Eosinophils # (Auto) 0.0x10^3/uL (0.0-0.7) Basophils # (Auto) 0.0x10^3/uL (0.0-0.2) Sodium Level 139mmol/L (136-145) Potassium Level 4.1mmol/L (3.5-5.1) Chloride Level 104mmol/L (98-107) Carbon Dioxide Level 24mmol/L (21-32) Anion Gap 11 (6-14) Blood Urea Nitrogen 10mg/dL (8-26) Creatinine 1.2mg/dL (0.7-1.3) Estimated GFR (Cockcroft-Gault) 67.8 Glucose Level 96mg/dL (70-99) Calcium Level 8.7mg/dL (8.5-10.1) Problem List Problems Medical Problems: (1) Cancer of sigmoid colon metastatic to intra-abdominal lymph node Status: Acute Assessment/Plan POD 2 sigmoid resection HPT d/c hot mill roller, start po pain meds asked renal to see re: HPT Problems: CELINA DE MD Oct 04, 2016 14:23
[2016-10-04] MEDS ORDERED: hydrALAZINE 20 MG/ML VIAL. IVP PRN (14:30)
[2016-10-04 15:00] VITALS: BP 142/96
[2016-10-04 19:00] VITALS: BP 142/92
[2016-10-04] MEDS: ENOXAPARIN 40 MG/0.4 ML DISP.SYRIN. SQ SCH (21:29)
[2016-10-04 23:00] VITALS: BP 135/95
--- NOTE | 2016-10-05 01:42 | ACF ---
Admission Forms Criteria AMBULATORY SURGERY EXCEPTION CRITERIA Ambulatory Surgery Exception Criteria ( Place 'X' for any and all applicable criteria): Surgery or procedure performed on ambulatory basis may require inpatient stay for[A] ANY ONE of the following(1)(2)(3)(4)(5)(6)(7)(8)(9): [X] I. A preoperative situation, condition, or finding that warrants inpatient stay as indicated by ANY ONE of the following: [] a) Inpatient care needed because of severity of a disease or condition rather than the surgery (eg, severe cardiac or respiratory disease, severe infection) (15) (16 ) (17) (18) [] b) Emergent procedure (eg, angioplasty for acute ischemia)(19) [] c) Complex surgical approach or situation as indicated by ANY ONE of the following(3): [] i) Open approach needed instead of usual endoscopic, transcatheter, or other less invasive procedure [] ii) Difficult approach because of previous operation [] iii) Airway monitoring required after open neck procedures(20)(21 ) [] iv) Large mass requiring unusually extensive dissection [] v) Additional complicating feature requiring inpatient care (eg , drain management)(22(23): [X] d) Major surgery in a pt with high anesthetic risk as indicated by ANY ONE of the following (2)(3)(5)(7)(8): [X] i) ASA risk class III or higher (severe systemic disease impairing function) [D] [] ii) Advanced age (eg, older than 85 years)(14)(24) [] iii) Symptomatic heart failure(25) [] iv) Symptomatic asthma or COPD(8)(21) [] v) Morbid obesity with hemodynamic or respiratory problems(20)( 21)(26)(27) [] vi) Obstructive sleep apnea(20)(21) [] vii) Former premature infants who are younger than 60 weeks [] viii) High risk for severe postoperative abnormalities (eg, severe postoperative hypocalcemia after parathyroidectomy for severe hyperparathyroidism)(27)( 28) [] ix) Unstable angina(25) [] e) Drug-related risk requiring inpatient stay as indicated by ANY ONE of the following(5)(10)(14)(32)(33) [] i) Procedure requires discontinuing drugs or other therapy (eg , antiarrhythmic medication, antiseizure medication), which necessitates inpatient observation or treatment.(18)(31) [] ii) Major surgery and high risk drug use as indicated by ANY ONE of the following: [] 1) Active abuse of cocaine or similar drug [] 2) Monoamine oxidase inhibitor use [] 3) Other drug identified as posing risk [] f) Inadequate outpatient care situation as indicated by ANY ONE of the following(5)(10)(14)(32)(33) [] i) Patient lives remote from medical facility and procedure has urgent complication potential, and temporary nearby residence cannot be arranged [] ii) Patient will have postprocedure incapacitation and inadequate assistance at home, or alternative level of care cannot be arranged. [] iii) Patient will have long general anesthesia or procedure side effect resolution time, and competent person to stay with patient on first postoperative night at home or alternative level of care cannot be arranged. [] iv) Other inadequate outpatient situation that cannot be handled by other means [] II. A perioperative event, condition, or finding that warrants inpatient stay as indicated by ANY ONE of the following (1)(2)(3): [] a) Inadequate physiologic recovery: cardiovascular, respiratory, or hemodynamic status not normal or near preoperative baseline(18) [] b) Hemodynamic instability [] c) Patient not alert with near normal or baseline mental status [] d) Temperature not normal or as expected and not appropriate for outpatient treatment of condition [] e) Ambulatory or appropriate activity level status not yet achieved post procedure [E](34)(35)(36) [] f) Operative site not appropriate (eg, unexpected or excessive drainage or bleeding) [] g) Postoperative effects not resolved or adequately managed (eg, significant pain or vomiting not appropriate for outpatient or next level of care)(10)(12) [] h) Complicating features requiring inpatient care as indicated by ANY ONE of the following(37): [] i) Severe complications of procedure (eg, bowel injury, airway compromise, vascular injury,severe hemorrhage) [] ii) Extensive (eg, dissection far beyond usual scope of procedure ) or prolonged (eg, 120 minutes beyond usual) surgery needed requiring inpatient postoperative care [] iii) Conversion to an open or complex procedure that requires inpatient care (eg, open vs laparoscopic cholecystectomy, abdominal vs vaginal hysterectomy)(38) [] iv) Comorbid condition or test result identified during or post procedure that requires inpatient care (7) [] v) Malignant hyperthermia(30) [] vi) Other complicating feature requiring inpatient care(22)(23) Inpatient stay may be needed until ALL of the following are present (1)(2)(3)(4) (5)(6)(10)(14)(33)(40): []a) Physiologic recovery: cardiovascular, respiratory, and hemodynamic status normal or near preoperative baseline []b) Hemodynamic stability []c) Patient alert, with near normal or baseline mental status []d) Temperature appropriate: patient afebrile or temperature appropriate for outpt treatment of condition []e) Activity level appropriate: ambulatory or appropriate activity level post procedure []f) Operative site appropriate as indicated by ALL of the following: []i) Site dry or with expected drainage []ii) Any blood noted is as expected for procedure. []g) Postoperative effects resolved or managed as indicated by ALL of the following: []i) Pain management appropriate for outpatient (or next level of) care(10) []ii) Minimal nausea and vomiting: if present, successfully treated with oral medication(12) []iii) Headache, dizziness, or drowsiness (if present) are mild. []h) Voiding status acceptable as indicated by ANY ONE of the following: []i) Voiding spontaneously []ii) No voiding but instructions given for follow-up in 6 to 8 hours []iii) Urinary catheter in place, and instructions given for follow-up []i) Complicating features requiring inpatient care manageable at a lower level of care(37) []j) Comorbid conditions manageable at a lower level of care(37) The original [employer] content created by [employer] has been revised. The portions of the content which have been revised are identified through the use of italic text or in bold, and [employer] has neither reviewed nor approved the modified material. All other unmodified content is copyright [employer]. Please see references footnoted in the original [employer] edition 2016 Admission Criteria Met?: Yes SHALINI MACIAS Oct 05, 2016 01:42
[2016-10-05 03:00] VITALS: BP 145/109
[2016-10-05] MEDS: POTASSIUM CL 20MEQ-0.45% NACL 1,000 ML IV SCH ×2 (03:28→12:42)
--- NOTE | 2016-10-05 04:37 | CONS ---
DATE OF CONSULTATION: REASON FOR CONSULTATION: Labile blood pressures. HISTORY OF PRESENT ILLNESS: The patient is a pleasant 36-year-old gentleman who recently was found to have positive lymph nodes, lymph node enlargement which showed colon cancer. He is here for rigid proctoscopy and is status post sigmoid resection of the same. He apparently was found to have positive for left supraclavicular area lymph nodes. He is now status post surgery for the same. His postop course has been punctuated by labile blood pressures, especially his diastolics running going up on the high side. He claims he has never had high blood pressures. At presentation here, he was 133/89. He claims he has had numerous doctors' visits and also blood pressures have not been too high. He has received IV fluids through this timeframe. PAST MEDICAL HISTORY: Significant for newly diagnosed colon cancer, history of colon polyps, sigmoid mass, status post resection, history of peptic ulcer disease, gallbladder disease and removal, back surgery for herniated disk and chronic back problems, anxiety related issues, previous tobacco use. FAMILY HISTORY: Negative for known kidney problems or hypertension. HOME MEDICATIONS: Did include lorazepam, oxycodone and Senokot. SOCIAL HISTORY: Previous tobacco use, now quit, occasional alcohol use, no drug use that he admits to. PHYSICAL EXAMINATION: VITAL SIGNS: Available to me, 144/104, pulse is 94, temperature is 98.5, respirations 16. GENERAL: Awake, alert and oriented, in no apparent distress, working with physical therapy. HEENT: Head is NC/AT. Pupils are reactive. Sclerae and conjunctivae were normal. Mucous membranes moist. NECK: Supple. LUNGS: Clear to auscultation. ABDOMEN: Soft, hypoactive bowel sounds. EXTREMITIES: Lower extremities in INDU hose stockings. No edema per se. Moves all four extremities. Good strength and tone. LABORATORY DATA: Showed creatinine 1.2, GFR 67.8. IMPRESSION, ASSESSMENT AND PLAN: Elevated diastolic blood pressures. Outside blood pressures are not available. 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 P.r.n. hydralazine has been ordered by Dr. Lama and I agree with that course of management. IV labetalol can be used also if need be, especially for diastolic hypertension. In the long run, he may benefit from an MARY, ARB. He has not started any chemotherapy. I have not ordered any chronic blood pressure medications. I have given him information whereby he can come see us as an outpatient if he needs assistance with management of his high blood pressure. For rest of details, see electronic records. FRANCISCA SCOTT MD DR: GRECIA/carl JOB#: [id number] / [id number]
[2016-10-05] MEDS ORDERED: HYDROMORPHONE 2 MG/ML VIAL. IV PRN (06:00)
[2016-10-05 07:00] VITALS: BP 141/93
[2016-10-05] MEDS ORDERED: PANTOPRAZOLE 40 MG TABLET. PO SCH (07:30)
[2016-10-05] MEDS: NICOTINE 21MG PATCH. TD SCH (08:27)
--- NOTE | 2016-10-05 08:38 | PATHOLOGY ---
PATHOLOGY REPORT * * * * * * * * FINAL DIAGNOSIS: Segment of colon and attached mesocolon, distal sigmoid segmental resection: - ADENOCARCINOMA OF COLON, INVASIVE, MODERATELY TO POORLY DIFFERENTIATED, FORMING A POLYPOID AND ULCERATED TUMOR MASS MEASURING 2.7 CM IN GREATEST DIMENSION, WITH TUMOR INVASION OF MUSCULARIS PROPRIA. SEE SYNOPTIC CANCER STAGING REPORT. - WIDESPREAD LYMPHOVASCULAR TUMOR INVASION IDENTIFIED. - FOCAL PERINEURAL TUMOR INVASION IDENTIFIED. - METASTATIC ADENOCARCINOMA INVOLVING 15 OF 15 MESOCOLIC LYMPH NODES. - Extramural tumor implants of mesocolon, multiple. - Proximal and distal margins of resection negative for tumor. (JPM:mgr; d/t: 10/04/16) SPECIMEN Specimen: Sigmoid colon Procedure: Sigmoidectomy Macroscopic Intactness of Mesorectum: Not applicable: . TUMOR Primary Tumor Site: Sigmoid colon Histologic Type: Adenocarcinoma Histologic Grade: High-grade (poorly differentiated to undifferentiated) Tumor Size: Greatest dimension (cm): 2.7 Tumor Deposits: Present -Number of Deposits: --Cannot be determined: . Tumor Extent Site(s) of Direct Extent of Tumor: None identified Microscopic Tumor Extension: Tumor invades muscularis propria Macroscopic Tumor Perforation: Not Identified Accessory Tumor Findings Lymph-Vascular Invasion: Present Histologic Features Suggestive of Microsatellite Instability Tumor Subtype and Differentiation: High histologic grade (poorly differentiated) Perineural Invasion: Present Type of Polyp in Which Invasive Carcinoma Arose: Tubular adenoma MARGINS All margins uninvolved by invasive carcinoma -Distance of Invasive Carcinoma from Closest Margin: --Specify (cm): 4.5 -Specify Margin: --Distal For Resection Specimens Only -Proximal Margin: ---Uninvolved by invasive carcinoma -Distal Margin: ---Uninvolved by invasive carcinoma -Circumferential (Radial) Margin: --Uninvolved by invasive carcinoma ---Distance of Tumor from Margin (required only for rectal tumors): ----Cannot be assessed: . -Mesenteric Margin: --Uninvolved by invasive carcinoma LYMPH NODES Regional Lymph Nodes: -Number of Lymph Nodes Examined: --Specify number: 15 -Number of Lymph Nodes Involved: --Specify number: 15 STAGE (PTNM) Primary Tumor (pT): pT2: Tumor invades muscularis propria Regional Lymph Nodes (pN): pN2b: Metastasis in 7 or more regional lymph nodes Distant Metastasis (pM): pM1: Distant metastasis pM1a: Metastasis to single organ or site (e.g., liver, lung, ovary, nonregional lymph node) ADDITIONAL FINDINGS Additional Pathologic Findings: None identified REPORT ELECTRONICALLY SIGNED BY: Fabian Cobian M.D. DATE/TIME: 10/05/2016 08:37 * * * * * * * * GROSS PATHOLOGY: The specimen is received fresh for intraoperative consultation and is designated "distal sigmoid." This consists of a segment of colon with attached mesocolon. The segment is stapled closed at both ends. There is a suture attached to the proximal end. The segment measures 21.5 cm in length. The attached mesocolon measures up to 3.5 cm in depth. The antimesocolic serosa is reddish brown and hyperemic. The appendices epiploica focally dangle from the specimen. There is focal black discoloration of the antimesocolic serosa adjacent to the distal end. There is a palpable mass within the colon proximal to the area of discoloration. The segment is opened along the antimesocolon. Arising approximately 4.5 cm from the distal margin of resection, there is a partially exophytic centrally ulcerated pink-sanchez tumor mass measuring up to 2.7 x 2.5 x 1.3 cm. The tumor is fixed to the muscular wall of the antimesocolic aspect of the segment. There is tomlinson-black discoloration of the mucosa distal to the mass. There is palpable induration within the corresponding mesocolon. The remainder of the colonic mucosa is pink to tomlinson-sanchez and transversely folded. There are no additional polyps or tumor masses. (JPM:mgr; d/t: 10/02/16) The specimen is fixed overnight in formalin prior to further examination. The opposing serosal surface is inked black. Sectioning reveals the mass to be grossly confined to the muscularis propria, is 0.2 cm from the closest inked margin, and is 3.2 cm from the mesenteric margin. 3.3 cm proximal to the mass is a well-circumscribed white-sanchez polyp measuring 0.2 cm in maximum dimensions, which is 5.3 cm from the closest margin (proximal). The remainder the colonic mucosa is light sanchze in appearance with normal architectural folds. Sectioning through the attached pericolic fat reveals a large possible tumor deposit/lymph node measuring 2.2 x 1.5 x 1.5 cm in greatest dimensions, located 1.5 cm from the mass. Sectioning through the attached pericolic fat reveals 18 possible lymph nodes ranging in size from 0.2 to 1.0 cm in maximum dimensions. The specimen is submitted representatively as follows: A1 proximal margin, en face A2 distal margin, en face A3-A6 food products sales representative sections of mass A7 single polyp proximal to mass A8 normal mucosa A9-A10 food products sales representative sections of possible tumor deposit/lymph node A11-A12 intact lymph nodes A13-A14 two bisected lymph nodes in each cassette, differentially inked A15-A17 one trisected lymph node in each cassette. (CAA; 10/03/2016) INTRAOPERATIVE CONSULTATION (Milvia Cobian M.D.) Segment of colon and attached mesocolon, sigmoid colon segmental resection: - PARTIALLY EXOPHYTIC CARCINOMA OF COLON-MARGINS OF RESECTION FREE OF NEOPLASM. - PALPABLE INDURATION OF CORRESPONDING MESOCOLON CONSISTENT WITH TUMOR INVOLVEMENT. The results are displayed to Dr. Lama in the operating room. The specimen is fixed in formalin prior to additional sectioning. (JPM:mgmahnaz; d/t: 10/02/16) Testing performed by [facility] [place] [address] INITIAL CPT CODE(S): A; 17282, 98015, 73276, 60585 Professional services performed [place] [facility] [address] Technical services performed by [facility] at [address] [place] [address], [facility] [address] [address]. SPECIMEN(S) RECEIVED: A.Distal sigmoid CLINICAL HISTORY: Colon cancer PATIENT: ROBB MCDOWELL DOB/AGE: 5 1980 (Age: 36) PATIENT #: [id number] ALT CASE #: SPECIMEN COLLECTION DATE: 10/02/2016 SPECIMEN RECEIVED DATE: 10/02/2016 [facility] - [id number] [place] [address] - PHONE: [phone] * * * END OF REPORT * * *
--- NOTE | 2016-10-05 10:38 | PDOC ---
LUIZ SEGURA APRN 10/05/16 1038: SURGICAL PROGRESS NOTE Subjective had one episode of emesis early this AM, then has tolerated diet since--does not like the liquids + flatus pain managed renal evaluated Vital Signs Vital Signs Date Time Temp Pulse Resp B/P Pulse Ox O2 Delivery O2 Flow Rate FiO2 10/05/16 09:00 Room Air 10/05/16 07:00 97.7 98 18 141/93 93 97.7 I&O Intake and Output 10/05/16 07:00 Intake Total 1124 ml Output Total 1350 ml Balance -226 ml Intake Oral 200 ml IV Total 924 ml Output Urine Total 1260 ml Drainage Total 90 ml # Voids 3 General: Alert, Oriented X3, Cooperative, No acute distress Abdomen: Soft, Other (ND, incision c/d/i, no erythema, SWATI serosang) Problem List Problems Medical Problems: (1) Cancer of sigmoid colon metastatic to intra-abdominal lymph node Status: Acute Assessment/Plan pod 3 sigmoid advance diet d/w renal Problems: CELINA DE MD 10/05/16 1614: SURGICAL PROGRESS NOTE Assessment/Plan looks good home this evening f.u next week Problems: LUIZ SEGURA APRN Oct 05, 2016 10:38 CELINA DE MD Oct 05, 2016 16:14
--- NOTE | 2016-10-05 10:49 | PDOC ---
SUBJECTIVE ROS F/up for Pre-HTN doign and feeling better today OBJECTIVE Vital Signs Vital Signs Date Time Temp Pulse Resp B/P Pulse Ox O2 Delivery O2 Flow Rate FiO2 10/05/16 09:00 Room Air 10/05/16 07:00 97.7 98 18 141/93 93 97.7 I & 0 Intake and Output 10/05/16 07:00 Intake Total 1124 ml Output Total 1350 ml Balance -226 ml Intake Oral 200 ml IV Total 924 ml Output Urine Total 1260 ml Drainage Total 90 ml # Voids 3 PHYSICAL EXAM Physical Exam General Appearance: Awake: Alert Oriented x 3 Neck: No JVD or JVP Chest: CTA [place] Heart: S1 S2 Abdomen - Soft min TTP - post op Extremities - No Edema DIAGNOSIS/ASSESSMENT Assessment & Plan Pre-HTN - ? Pain related vs new onset. Mostly Diastolic ^tion. d/w Pt and - will use small dose of B-Emely Po and they will buy a BP machine as OP and track BP. D/c B-Emely if SBP <120 or DBP < 75. Doubt GHAZAL etc per se but may need w/up for same if Unabel to controll BP as OP Problems: COMMENT/RELEVANT DATA Meds Current Medications Medications (Trade) Dose Ordered Sig/Wendi Start Time Stop Time Status Last Admin Dose Admin Acetaminophen (Ofirmev) 100 ml @ As Directed STK-MED ONCE 10/02/16 07:19 10/02/16 07:20 DC Al Hydrox/Mg Hydrox/Simethicone (Mylanta Plus Xs) 15 ml PRN QID PRN 10/03/16 04:45 Cefoxitin Sodium (Mefoxin 1gm Ivpb For Omni) 50 ml @ 100 mls/hr 1X ONCE 10/02/16 12:15 10/02/16 12:44 DC 10/02/16 09:09 100 MLS/HR Dexamethasone Sodium Phosphate (Decadron) 20 mg STK-MED ONCE 10/02/16 07:09 10/02/16 07:10 DC Diphenhydramine HCl (Benadryl) 25 mg PRN Q6HRS PRN 10/02/16 12:15 Enoxaparin Sodium (Lovenox 40mg Syringe) 40 mg Q24H 10/02/16 22:00 10/04/16 21:29 40 MG Fentanyl Citrate (Fentanyl 2ml Vial) 50 mcg PRN Q5MIN PRN 10/02/16 07:00 10/03/16 06:59 DC 10/02/16 12:38 50 MCG Fentanyl Citrate (Fentanyl 5ml Vial) 250 mcg STK-MED ONCE 10/02/16 07:20 10/02/16 07:21 DC Fentanyl Citrate 250 mcg 250 mcg 1X ONCE 10/02/16 08:00 10/02/16 08:01 DC 10/02/16 08:24 250 MCG Glycopyrrolate 1 mg 1 mg STK-MED ONCE 10/02/16 10:28 10/02/16 10:29 DC Heparin Sodium (Porcine) (Hep Lock Adult) 500 unit 1X ONCE 10/02/16 08:00 10/02/16 08:01 DC 10/02/16 08:08 500 UNIT Heparin Sodium (Porcine)/Sodium Chloride (Iv Sodium Chloride 0.9% 500ml Bag) 505 ml @ 505 mls/hr 1X PERIOP ONCE 10/02/16 06:00 10/02/16 06:59 DC Heparin Sodium/ Sodium Chloride 1,000 unit 1X ONCE 10/02/16 08:00 10/02/16 08:01 DC 10/02/16 08:25 1,000 UNIT Hydralazine HCl (Apresoline) 10 mg PRN Q4HRS PRN 10/04/16 14:30 10/05/16 03:28 10 MG Hydromorphone HCl (Dilaudid Standard MANAGER OPERATIONS) 30 ml @ As Directed STK-MED ONCE 10/02/16 12:33 10/03/16 09:53 DC Hydromorphone HCl (Dilaudid) 1 mg PRN Q3HRS PRN 10/05/16 06:00 10/05/16 08:19 1 MG Influenza Virus Vaccine Quadrival (Fluarix Quad [id number] Syringe) 0.5 ml ONCE ONCE 10/02/16 15:30 10/02/16 15:31 DC 10/03/16 22:26 0.5 ML Info (Do NOT chart on this placeholder) 1 each PRN 1X PRN 10/02/16 15:15 UNV Ketorolac Tromethamine (Toradol For Or Only) 60 mg STK-MED ONCE 10/02/16 10:12 10/02/16 10:13 DC Lactated Ringer's (Iv Lactated Ringers) 1,000 ml @ 30 mls/hr Q24H 10/02/16 07:00 10/02/16 18:59 DC 10/02/16 12:24 30 MLS/HR Lidocaine HCl 100 mg STK-MED ONCE 10/02/16 07:10 10/02/16 07:11 DC Lidocaine/ Epinephrine (Xylocaine 1%-Epi 1:100,000) 17 ml 1X ONCE 10/02/16 08:30 10/02/16 08:34 DC 10/02/16 07:51 17 ML Lorazepam (Ativan) 0.5 mg PRN BID PRN 10/02/16 12:15 Metronidazole 100 ml @ As Directed STK-MED ONCE 10/02/16 11:00 10/03/16 09:51 DC Metronidazole 500 mg 500 mg STK-MED ONCE 10/02/16 11:00 10/03/16 08:14 DC Midazolam HCl (Versed) 5 mg 1X ONCE 10/02/16 08:00 10/02/16 08:01 DC 10/02/16 08:26 4.5 MG Morphine Sulfate 1 mg 1 mg PRN Q10MIN PRN 10/02/16 07:00 10/03/16 06:59 DC Naloxone HCl (Narcan) 0.4 mg PRN Q2MIN PRN 10/02/16 12:15 Neostigmine Methylsulfate 5 mg STK-MED ONCE 10/02/16 10:28 10/02/16 10:29 DC Nicotine (Nicoderm Cq 21mg) 1 patch DAILY 10/02/16 21:00 10/03/16 13:01 1 PATCH Ondansetron HCl (Zofran) 4 mg PRN Q6HRS PRN 10/02/16 12:15 10/05/16 08:18 4 MG Ondansetron HCl 4 mg 4 mg STK-MED ONCE 10/02/16 07:09 10/02/16 07:10 DC Oxycodone/ Acetaminophen (Percocet 7.5/ 325) 1 tab PRN Q4HRS PRN 10/04/16 13:45 Pantoprazole Sodium (Protonix Vial) 40 mg DAILYAC 10/03/16 06:00 10/04/16 11:30 DC 10/04/16 08:02 40 MG Pantoprazole Sodium (Protonix) 40 mg DAILYAC 10/05/16 07:30 Potassium Chloride/Sodium Chloride (KCl 20 Meq-0.45% Nacl) 1,000 ml @ 75 mls/hr [id number] 10/02/16 12:07 10/05/16 03:28 75 MLS/HR Prochlorperazine Edisylate 5 mg 5 mg PACU PRN PRN 10/02/16 07:00 10/03/16 06:59 DC 10/02/16 12:26 5 MG Propofol (Diprivan) 20 ml @ As Directed STK-MED ONCE 10/02/16 07:10 10/02/16 07:11 DC Rocuronium [place] 50 mg 50 mg STK-MED ONCE 10/02/16 07:10 10/02/16 07:11 DC Rocuronium [place] (Zemuron) 50 mg STK-MED ONCE 10/02/16 09:52 10/02/16 09:53 DC Sevoflurane (Ultane) 90 ml STK-MED ONCE 10/02/16 14:28 10/03/16 09:56 DC Sodium Chloride 3 ml 3 ml QSHIFT PRN 10/02/16 12:15 Succinylcholine Chloride (Anectine) 200 mg STK-MED ONCE 10/02/16 07:21 10/02/16 07:22 DC Vancomycin HCl 250 ml @ 250 mls/hr 1X ONCE 10/02/16 08:00 10/02/16 08:59 DC 10/02/16 08:25 250 MLS/HR FRANCISCA SCOTT MD Oct 05, 2016 10:49
[2016-10-05 11:00] VITALS: BP 133/85
[2016-10-05] MEDS ORDERED: METOPROLOL TART IMMED RELEASE 25 MG TABLET PO SCH (11:30)
[2016-10-05] MEDS: OXYCODONE/APAP 7.5/325 TABLET. PO PRN ×2 (12:40→16:48)
[2016-10-05 15:00] VITALS: BP 126/89
[2016-10-05 15:57] LABS: BACTERIA,URINE 0 /HPF (0-FEW); BILIRUBIN,URINE NEGATIVE (NEG); GLUCOSE,URINE NEGATIVE (NEG); NITRITE,URINE NEGATIVE (NEG); PROTEIN,URINE NEGATIVE (NEG-TRACE); UROBILINOGEN,URINE 0.2 mg/dL (0.2 mg/dL); WBC,URINE 0 /HPF (0-4)
--- NOTE | 2016-10-05 16:12 | DISCH ---
DISCHARGE INSTRUCTIONS Condition on Discharge Condition on Discharge: Stable Activity After Discharge Activity Instructions for Disc: Activity as tolerated, Avoid exertion Driving Instructions after Dis: Do not drive Diet after Discharge Diet after Discharge: Regular Wound Incision Care Other wound/incision instructi: ok to shower Sunday Follow-Up Follow up with: Kelby 10/13 CELINA DE MD Oct 05, 2016 16:12
--- NOTE | 2016-10-05 16:16 | PDOC3 ---
Discharge Summary* Date of Admission: Oct 02, 2016 Date of Discharge: Oct 05, 2016 Admitting Diagnosis Problems Medical Problems: (1) Cancer of sigmoid colon metastatic to intra-abdominal lymph node Status: Acute (2) Carcinoma of sigmoid colon Status: Acute Final Diagnosis Problems Medical Problems: (1) Cancer of sigmoid colon metastatic to intra-abdominal lymph node Status: Acute (2) Carcinoma of sigmoid colon Status: Acute CONSULTS Dr Valencia Perez Procedures rigid procto, sigmoid resection Brief Hospital Course Mr. Pittman is a 36 old male who presented with metastatic cancer of the sigmoid colon. He did well post op and went home on his third pod Disposition/Orders: D/C to Home CONDITION AT DISCHARGE: Stable Diet: Regular Scheduled PRN Lorazepam (Lorazepam) 0.5 MG PO PRN BID PRN PRN ANXIETY / AGITATION (Reported) Oxycodone/Apap 10-325 (Percocet 10-325 Mg Tablet) 1 TAB PO Q4HRS PRN PRN PAIN ( Reported) Miscellaneous Medications Sennosides/Docusate Sodium (Stool Softener Tablet) 1 EACH PO (Reported) Discontinued Medications Hydrocodone Bit/Acetaminophen (Hydrocodone-Apap 7.5-325 ) 1 TAB PO PRN Q6HRS PRN PRN PAIN (Reported) FOLLOW UP APPOINTMENT: 10/13/16 Time Spent Total time spent with patient 10 minutes for coordination of care, counseling, and education. CELINA DE MD Oct 05, 2016 16:16
[2016-10-05] MEDS ORDERED: HEPARIN PF 500 UNIT/5 ML DISP.SYRIN. IV ONE (16:30)
== END 2016-10-05 17:36 | disposition home or self-care (01) | DRG 330 ==
LOC: SURG 06:07 → 4 NORTH 12:07
PROVIDERS: ADMIT Surgery; ATTEND Surgery
PROC: 05HM33Z Insertion of Infusion Device into Right Internal Jugular Vein, Percutaneous Approach (ICD-10-PCS; 2016-10-02)
PROC: B5131ZA Fluoroscopy of Right Jugular Veins using Low Osmolar Contrast, Guidance (ICD-10-PCS; 2016-10-02)
PROC: 0DJD8ZZ Inspection of Lower Intestinal Tract, Via Natural or Artificial Opening Endoscopic (ICD-10-PCS; 2016-10-02)
PROC: 0DTN0ZZ Resection of Sigmoid Colon, Open Approach (ICD-10-PCS; principal; 2016-10-02 08:00)
DX: C18.7 Malignant neoplasm of sigmoid colon (principal); C77.2 Secondary and unspecified malignant neoplasm of intra-abdominal lymph nodes; F17.200 Nicotine dependence, unspecified, uncomplicated; F41.9 Anxiety disorder, unspecified; Z85.038 Personal history of other malignant neoplasm of large intestine; Z87.11 Personal history of peptic ulcer disease; Z86.010 Personal history of colon polyps; Z88.8 Allergy status to other drugs, medicaments and biological substances; Z90.49 Acquired absence of other specified parts of digestive tract
CPT/HCPCS: 36415; 36561; 74000; 76937; 77001; 80048; 81001; 85027; 85610; 86850; 86900; 86901; 88309; 90686; C1751; C1892; C9113; J0131; J0330; J0360; J0694; J1100; J1170; J1650; J1885; J2250; J2405; J2704; J2710; J3010; J3370; J3490; J7030; J7040; J7120; 97110; 97116

== ENCOUNTER 2016-10-16 18:29 | Emergency (ER) | payer BC ==
[~2016-10-16] VITALS: Ht 180.3 cm; Wt 103.9 kg
[~2016-10-16 18:29] MED LIST changes: -CEFOXITIN 1GM IVPB FOR OMNI 50 ML IV PRN; -HEPARIN S0DIUM 5,000 UNIT in IV NORMAL SALINE 500ML BAG 500 ML IRR ONE
[2016-10-16] MEDS ORDERED: ONDANSETRON ODT 4 MG TAB.RAPDIS ONE (19:37)
[2016-10-16] MEDS ORDERED: IV NORMAL SALINE 1000ML BAG 1,000 ML IV SCH (20:13)
--- NOTE | 2016-10-16 20:13 | PHYS DOC ---
Past Medical History Past Medical History: Cancer, Other Additional Past Medical Histor: STAGE 4 ADENOCARCINOMA,COLON CA Past Surgical History: Cholecystectomy, Other Additional Past Surgical Histo: spine, r knee, l ankle,COLON RESECTION,PAC, LYMPH NODES REMOVED Additional Information: 1 PPD Alcohol Use: Rarely Drug Use: None Adult General Chief Complaint Chief Complaint: FLANK PAIN HPI HPI Patient is a 36 year old male who presents with back pain. Patient reports she has had a constant throbbing back pain in his bilateral lower back and flanks since Sunday. No clear inciting or mitigating factors. Only other complaint is urinary frequency. He has not taken anything today for symptoms. Of note, patient underwent colon resection 2 weeks ago for colon cancer. He has been moving his bowels regularly since . No loss of bowel/bladder continence. No numbness or weakness. No other acute complaints. Review of Systems Review of Systems Constitutional: Denies fever or chills Eyes: Denies change in visual acuity or eye pain HENT: Denies nasal congestion or sore throat Respiratory: Denies cough or shortness of breath Cardiovascular: Denies chest pain GI: Denies abdominal pain, nausea, vomiting, bloody stools or diarrhea : Urinary frequency Musculoskeletal: B/l lower back/flank pain Integument: Denies rash or skin lesions Neurologic: Denies headache, focal weakness or sensory changes Current Medications Current Medications Current Medications Medications (Trade) Dose Ordered Sig/Wendi Start Time Stop Time Status Last Admin Dose Admin Info (Do NOT chart on this entry -- for MONITORING) 1 each PRN DAILY PRN 10/16/16 21:00 10/16/16 23:05 DC Iohexol (Omnipaque 300 Mg/ml) 75 ml 1X ONCE 10/16/16 21:30 10/16/16 21:31 DC 10/16/16 20:58 75 ML Morphine Sulfate 4 mg 1X ONCE 10/16/16 20:15 10/16/16 20:19 DC 10/16/16 20:33 4 MG Ondansetron HCl 4 mg 4 mg STK-MED ONCE 10/16/16 19:37 10/16/16 19:38 DC Sodium Chloride (Iv Sodium Chloride 0.9% 1000ml Bag) 1,000 ml @ 1,000 mls/hr Q1H 10/16/16 20:13 10/16/16 21:12 DC 10/16/16 20:32 1,000 MLS/HR Allergies Allergies Allergies Coded Allergies Type Severity Reaction Last Updated Verified cortisone Allergy Intermediate Hives 10/02/16 Yes tramadol Allergy Intermediate 10/02/16 Yes Physical Exam Physical Exam Constitutional: Well developed, well nourished, no acute distress, non-toxic appearance HENT: Normocephalic, atraumatic, bilateral external ears normal Eyes: EOMI, conjunctiva normal, no discharge Neck: Normal range of motion, no stridor Cardiovascular: Heart rate normal, regular rhythm, no murmur Lungs & Thorax: Bilateral breath sounds clear to auscultation Abdomen: Bowel sounds normal, soft, non-distended, no TTP Skin: Warm, dry, no erythema, no rash Back: Mild R side lumbar tenderness; no skin lesion or deformity noted Extremities: No obvious deformity, no edema Neurologic: Alert and oriented X 3, no gross deficits noted Psychologic: Affect normal, judgement normal, mood normal Current Patient Data Vital Signs Vital Signs Date Time Temp Pulse Resp B/P Pulse Ox O2 Delivery O2 Flow Rate FiO2 10/16/16 20:33 18 99 Room Air 10/16/16 20:17 92 146/92 10/16/16 18:55 98.4 98.4 Lab Values Laboratory Tests Test 10/16/16 19:55 10/16/16 20:23 Urine Collection Type Unknown Urine Color Yellow Urine Clarity Cloudy Urine pH 7.0 Urine Specific [place] 1.010 Urine Protein Negativemg/dL (NEG-TRACE) Urine Glucose (UA) Negativemg/dL (NEG) Urine Ketones (Stick) Negativemg/dL (NEG) Urine Blood Negative (NEG) Urine Nitrite Negative (NEG) Urine Bilirubin Negative (NEG) Urine Urobilinogen Dipstick 0.2mg/dL (0.2 mg/dL) Urine Leukocyte Esterase Negative (NEG) Urine RBC Occ/HPF (0-2) Urine WBC 0/HPF (0-4) Urine Squamous Epithelial Cells Few/LPF Urine Bacteria 0/HPF (0-FEW) White Blood Count 8.2x10^3/uL (4.0-11.0) Red Blood Count 4.96x10^6/uL (4.30-5.70) Hemoglobin 13.1g/dL (13.0-17.5) Hematocrit 40.1% (39.0-53.0) Mean Corpuscular Volume 81fL (79-100) Mean Corpuscular Hemoglobin 26pg (25-35) Mean Corpuscular Hemoglobin Concent 33g/dL (31-37) Red Cell Distribution Width 13.9% (11.5-14.5) Platelet Count 330x10^3/uL (140-400) Neutrophils (%) (Auto) 59% (31-73) Lymphocytes (%) (Auto) 24% (24-48) Monocytes (%) (Auto) 11% (0-9) H Eosinophils (%) (Auto) 6% (0-3) H Basophils (%) (Auto) 0% (0-3) Neutrophils # (Auto) 4.8x10^3uL (1.8-7.7) Lymphocytes # (Auto) 1.9x10^3/uL (1.0-4.8) Monocytes # (Auto) 0.9x10^3/uL (0.0-1.1) Eosinophils # (Auto) 0.5x10^3/uL (0.0-0.7) Basophils # (Auto) 0.0x10^3/uL (0.0-0.2) Sodium Level 140mmol/L (136-145) Potassium Level 4.0mmol/L (3.5-5.1) Chloride Level 106mmol/L (98-107) Carbon Dioxide Level 27mmol/L (21-32) Anion Gap 7 (6-14) Blood Urea Nitrogen 15mg/dL (8-26) Creatinine 1.2mg/dL (0.7-1.3) Estimated GFR (Cockcroft-Gault) 67.8 BUN/Creatinine Ratio 13 (6-20) Glucose Level 109mg/dL (70-99) H Calcium Level 9.1mg/dL (8.5-10.1) Total Bilirubin 0.4mg/dL (0.2-1.0) Aspartate Amino Transferase (AST) 19U/L (15-37) Alanine Aminotransferase (ALT) 29U/L (16-63) Alkaline Phosphatase 75U/L (46-116) Total Protein 7.7g/dL (6.4-8.2) Albumin 3.3g/dL (3.4-5.0) L Albumin/Globulin Ratio 0.8 (1.0-1.7) L Laboratory Tests 10/16/16 20:23 Laboratory Tests 10/16/16 20:23 EKG EKG [] Radiology/Procedures Radiology/Procedures CT A/P: IMPRESSION: Postsurgical changes with lower abdominal midline scar and mild soft tissue stranding in the lower abdomen. No focal fluid collection is present. The urinary bladder abuts the ventral abdominal wall at the level of the scar, without focal urinary bladder wall thickening present. Prominent retroperitoneal and retrocrural lymphadenopathy present. Course & Med Decision Making Course & Med Decision Making Pertinent Labs and Imaging studies reviewed. (See chart for details) Patient is 36-year-old male who presents with lower back/flank pain. Will check labs, UA, CT abdomen/pelvis to evaluate. IV fluids and pain meds ordered for relief of symptoms. Labs unremarkable. Imaging results as above. Discussed results with patient, who is feeling better at this time. Will discharge home with prescription for Flomax, instructions for follow-up, return precautions. Dragon Disclaimer Dragon Disclaimer This electronic medical record was generated, in whole or in part, using a voice recognition dictation system. Departure Departure Impression: Primary Impression: Back pain Additional Impression: Urinary frequency Disposition: 01 HOME, SELF-CARE Condition: IMPROVED Referrals: POOJA BUI MD (PCP) Patient Instructions: Back Pain, Adult, Urinary Frequency Additional Instructions: Thank you for allowing us to provide care today in the Emergency Department. Take the provided medication as directed. Schedule a follow up appointment with your primary care doctor and with your oncologist. Return promptly to the Emergency Department if you develop any new or concerning symptoms. Scripts Tamsulosin Hcl (Flomax)0.4 Mg Cap.er.24h0.4 Mg PO DAILY #14 TAB Prov:MOLINA NEWSOME MD 10/16/16 Problem Qualifiers MOLINA NEWSOME MD Oct 16, 2016 20:13
[2016-10-16] MEDS ORDERED: MORPHINE SULFATE 4 MG/ML DISP.SYRIN. IV ONE (20:15)
[2016-10-16 20:17] VITALS: BP 146/92
[2016-10-16 20:25] LABS: BILIRUBIN,URINE NEGATIVE (NEG); GLUCOSE,URINE NEGATIVE (NEG); NITRITE,URINE NEGATIVE (NEG); PROTEIN,URINE NEGATIVE (NEG-TRACE); UROBILINOGEN,URINE 0.2 mg/dL (0.2 mg/dL)
[2016-10-16 20:31] LABS: BASO % 0 % (0-3); EOS % 6 % (0-3); HEMATOCRIT 40.1 % (39.0-53.0); HEMOGLOBIN 13.1 g/dL (13.0-17.5); LYMPH # 1.9 x10^3/uL (1.0-4.8); LYMPH % 24 % (24-48); MEAN CORPUSCULAR HEMOGLOBIN 26 pg (25-35); MEAN CORPUSCULAR HGB CONC 33 g/dL (31-37); MEAN CORPUSCULAR VOLUME 81 fL (79-100); MONO % 11 % (0-9); NEUT % 59 % (31-73); PLATELET COUNT 330 x10^3/uL (140-400); RED BLOOD COUNT 4.96 x10^6/uL (4.30-5.70); RED CELL DISTRIBUTION WIDTH 13.9 % (11.5-14.5); WHITE BLOOD COUNT 8.2 x10^3/uL (4.0-11.0)
[2016-10-16 20:39] LABS: CALCIUM 9.1 mg/dL (8.5-10.1); CREATININE 1.2 mg/dL (0.7-1.3); GFR 67.8
[2016-10-16 20:39] LABS: BACTERIA,URINE 0 /HPF (0-FEW); RBC,URINE OCC /HPF (0-2); SQUAMOUS EPITHELIAL CELL,UR FEW /LPF; WBC,URINE 0 /HPF (0-4)
[2016-10-16 20:44] LABS: ALBUMIN 3.3 g/dL (3.4-5.0); ALBUMIN/GLOBULIN RATIO 0.8 (1.0-1.7); TOTAL BILIRUBIN 0.4 mg/dL (0.2-1.0); TOTAL PROTEIN 7.7 g/dL (6.4-8.2)
[2016-10-16] MEDS ORDERED: CONTRAST GIVEN MC PRN (21:00)
[2016-10-16] MEDS ORDERED: IOHEXOL 300 MG/ML 75 ML VIAL IV ONE (21:30)
--- NOTE | 2016-10-16 21:55 | RAD ---
INDICATION: 36-year-old male with bilateral flank pain, recent colon resection. COMPARISON: None TECHNIQUE: Axial CT images obtained through the abdomen and pelvis following the intravenous administration of 75 cc of Omni 300. Coronal and sagittal reformats are provided. One or more of the following individualized dose reduction techniques were utilized for this examination: 1. Automated exposure control; 2. Adjustment of the mA and/or kV according to patient size; 3. Use of iterative reconstruction technique. FINDINGS: Visualized lung bases appear clear. The liver, spleen, pancreas, adrenal glands and bilateral kidneys demonstrate no focal abnormality. The gallbladder is surgically absent. No hydronephrosis or prominent hydroureter is seen. The GI tract demonstrates no dilated bowel loops to suggest obstruction. There is mild soft tissue stranding in the region of the sigmoid colon, with a single surgical clip present along the anterior aspect of the rectosigmoid. No focal bowel wall thickening is seen. The urinary bladder is minimally distended with urine, with its anterior aspect extending toward the midline ventral abdominal wall in the region of the scar. Otherwise, no focal urinary bladder wall thickening is present. There are numerous prominent retroperitoneal and retrocrural lymph nodes present. No definite enlarged pelvic lymph nodes are seen. The aorta is normal in caliber. Visualized osseous structures demonstrate no acute finding. Midline ventral abdominal wall scar is present below the umbilicus, with mild soft tissue stranding present. No focal fluid collection is present. IMPRESSION: Postsurgical changes with lower abdominal midline scar and mild soft tissue stranding in the lower abdomen. No focal fluid collection is present. The urinary bladder abuts the ventral abdominal wall at the level of the scar, without focal urinary bladder wall thickening present. Prominent retroperitoneal and retrocrural lymphadenopathy present. Electronically signed by: Sirisha Smith (Oct 16, 2016 21:53:37)
[2016-10-16] MEDS ORDERED: TAMS0.4C97 PO (22:53)
== END 2016-10-16 23:05 | disposition home or self-care (01) ==
LOC: ER 18:29
DX: M54.5 Low back pain (principal); R35.0 Frequency of micturition; R10.9 Unspecified abdominal pain; F17.200 Nicotine dependence, unspecified, uncomplicated; Z90.49 Acquired absence of other specified parts of digestive tract; Z88.5 Allergy status to narcotic agent; Z88.8 Allergy status to other drugs, medicaments and biological substances
CPT/HCPCS: 36415; 74177; 80053; 81001; 85027; 96361; 96374; 99285; J2270; J7030; Q9967

== ENCOUNTER 2016-10-30 20:41 | Emergency (ER) | payer BC ==
[~2016-10-30] VITALS: Ht 180.3 cm; Wt 104.3 kg
[~2016-10-30 20:41] MED LIST changes: +TAMS0.4C97 PO
[2016-10-30] MEDS ORDERED: IV NORMAL SALINE 1000ML BAG 1,000 ML IV SCH (21:23)
[2016-10-30] MEDS ORDERED: HYDROMORPHONE 2 MG/ML VIAL. IV/SQ PRN (21:30)
[2016-10-30 21:34] LABS: BASO # 0.1 x10^3/uL (0.0-0.2); BASO % 1 % (0-3); EOS % 5 % (0-3); HEMATOCRIT 39.9 % (39.0-53.0); HEMOGLOBIN 13.1 g/dL (13.0-17.5); LYMPH # 1.4 x10^3/uL (1.0-4.8); LYMPH % 14 % (24-48); MEAN CORPUSCULAR HEMOGLOBIN 26 pg (25-35); MEAN CORPUSCULAR HGB CONC 33 g/dL (31-37); MEAN CORPUSCULAR VOLUME 80 fL (79-100); MONO % 11 % (0-9); NEUT % 69 % (31-73); PLATELET COUNT 308 x10^3/uL (140-400); RED BLOOD COUNT 5.01 x10^6/uL (4.30-5.70)
[2016-10-30 21:36] LABS: BILIRUBIN,URINE NEGATIVE (NEG); GLUCOSE,URINE NEGATIVE (NEG); NITRITE,URINE NEGATIVE (NEG); PH,URINE 5.5; PROTEIN,URINE NEGATIVE (NEG-TRACE); UROBILINOGEN,URINE 0.2 mg/dL (0.2 mg/dL)
[2016-10-30 21:41] LABS: BACTERIA,URINE 0 /HPF (0-FEW); RBC,URINE OCC /HPF (0-2); SQUAMOUS EPITHELIAL CELL,UR OCC /LPF; WBC,URINE OCC /HPF (0-4)
[2016-10-30 21:45] LABS: CALCIUM 9.6 mg/dL (8.5-10.1); CREATININE 1.7 mg/dL (0.7-1.3); GFR 45.3; POTASSIUM 3.7 mmol/L (3.5-5.1)
[2016-10-30 21:51] LABS: ALBUMIN 3.6 g/dL (3.4-5.0); DIRECT BILIRUBIN 0.1 mg/dL (0.0-0.2); TOTAL BILIRUBIN 0.6 mg/dL (0.2-1.0); TOTAL PROTEIN 8.5 g/dL (6.4-8.2)
[2016-10-30] MEDS ORDERED: ONDANSETRON PF 4 MG/2 ML VIAL. IV ONE (22:00)
[2016-10-30] MEDS ORDERED: IOHEXOL 300 MG/ML 75 ML VIAL IV ONE (22:30)
[2016-10-30] MEDS ORDERED: CONTRAST GIVEN MC PRN (22:30)
--- NOTE | 2016-10-30 23:46 | RAD ---
CT abdomen pelvis with contrast: Reason for examination: Low abdominal pain and back pain. History of colon cancer with sigmoid colon resection 4 weeks ago. Helical images were obtained through the abdomen and pelvis with intravenous administration of 60 cc Omnipaque. Reconstruction was performed in sagittal and coronal planes. Exposure: One or more of the following individualized dose reduction techniques were used for this examination: 1. Automated exposure control. 2. Adjustment of the mA and/or kV according to patient size. 3. Use of iterative reconstruction technique. There is some dependent atelectasis bilaterally at the lung bases. The heart size is normal with no pericardial effusion. No abnormalities seen in the liver, spleen, pancreas or adrenal glands. The abdominal aorta and inferior vena cava show no abnormalities. There is adenopathy in the periaortic region. The right kidney shows no mass, hydronephrosis or renal calculi or evidence of obstructive uropathy. The left kidney shows increase prominence of the renal pelvis and calices but a site of e obstruction is not seen along the ureter. The intestinal tract shows no abnormally dilated loops of bowel or evidence of obstruction or wall thickening. There are postop changes in the pelvis with some mesenteric stranding again seen. The urinary bladder is distended but there is some peaking of the anterior wall of the bladder extending to the midline of the anterior abdominal wall which has not changed. No abnormalities seen in the prostate gland or seminal vesicles. No fluid collections or free air is seen in the abdomen or pelvis. No acute bony abnormalities are seen. Impression: Adenopathy in the periaortic region. Postop changes in the pelvis with some mesenteric stranding but no abnormal fluid collections seen. Peaking of the anterior wall of the bladder extending to the anterior abdominal wall which may reflect adhesions. The appearance is unchanged from previous exam. Prominent left renal pelvis and caliceal system new from previous exam without evidence of a calculus along the course of the ureter. But obstructive uropathy cannot be excluded. Recommend followup. Electronically signed by: Brittany Solano MD (Oct 30, 2016 23:45:50)
[2016-10-31] VITALS: BP 138/85
--- NOTE | 2016-10-31 | PHYS DOC ---
Past Medical History Past Medical History: Cancer, Other Additional Past Medical Histor: STAGE 4 ADENOCARCINOMA,COLON CA Past Surgical History: Cholecystectomy, Other Additional Past Surgical Histo: spine, r knee, l ankle,COLON RESECTION,PAC, LYMPH NODES REMOVED Alcohol Use: Rarely Drug Use: None Adult General Chief Complaint Chief Complaint: BACK PAIN - NO INJURY HPI HPI Patient is a 36 year old male who presents with for intermittent left low back pain and lower abdominal pain since yesterday. Pain is intermittent lasting minutes at a time and has minutes to hours of resolution. States pain returned approx 2 hours prior to arrival and has no appetite. He has slight nausea with trying to eat, but denies emesis. He is only taking intermittent home pain medication. He denies fever or chills, patient, diarrhea, bloody or dark stools, dysuria, hematuria, genital pain, abdominal distention, food fear, pain with eating, trauma, rash. Review of Systems Review of Systems Constitutional: Denies fever or chills [] Eyes: Denies change in visual acuity, redness, or eye pain [] HENT: Denies nasal congestion or sore throat [] Respiratory: Denies cough or shortness of breath [] Cardiovascular: No additional information not addressed in HPI [] GI: Denies vomiting, bloody stools or diarrhea [] : Denies dysuria or hematuria [] Musculoskeletal: Denies joint pain [] Integument: Denies rash or skin lesions [] Neurologic: Denies headache, focal weakness or sensory changes [] Endocrine: Denies polyuria or polydipsia [] Current Medications Current Medications Current Medications Medications (Trade) Dose Ordered Sig/[facility] Start Time Stop Time Status Last Admin Dose Admin Hydromorphone HCl 0.5 mg 0.5 mg PRN Q15MIN PRN 10/30/16 21:30 10/31/16 21:29 10/30/16 21:36 0.5 MG Info (Do NOT chart on this entry -- for MONITORING) 1 each PRN DAILY PRN 10/30/16 22:30 11/01/16 22:29 Iohexol (Omnipaque 300 Mg/ml) 60 ml 1X ONCE 10/30/16 22:30 10/30/16 22:31 DC 10/30/16 22:30 60 ML Ondansetron HCl (Zofran) 4 mg 1X ONCE 10/30/16 22:00 3/20/17 22:01 DC 10/30/16 21:36 4 MG Sodium Chloride (Iv Sodium Chloride 0.9% 1000ml Bag) 1,000 ml @ 1,000 mls/hr Q1H 10/30/16 21:23 10/30/16 22:22 DC 10/30/16 21:23 1,000 MLS/HR Allergies Allergies Allergies Coded Allergies Type Severity Reaction Last Updated Verified cortisone Allergy Intermediate Hives 10/02/16 Yes tramadol Allergy Intermediate 10/02/16 Yes Physical Exam Physical Exam Constitutional: Well developed, well nourished, no acute distress, non-toxic appearance. [] HENT: Normocephalic, atraumatic, bilateral external ears normal, oropharynx moist, nose normal. [] Eyes: PERRLA, EOMI. [] Neck: Normal range of motion, supple. [] Cardiovascular:Heart rate regular rhythm [] Lungs & Thorax: Bilateral breath sounds clear to auscultation [] Abdomen: Bowel sounds normal, soft, has moderate suprapubic and LLQ tenderness, abdominal incision scars are well appearing with no palpable hernia, no guarding or rebound [] Skin: Warm, dry, no erythema, no rash. [] Back: No tenderness, no CVA tenderness. [] Extremities: No tenderness, ROM intact, no edema. [] Neurologic: Alert and oriented X 3, normal motor function, normal sensory function, no focal deficits noted. [] Psychologic: Affect normal, judgement normal, mood normal. [] Current Patient Data Vital Signs Vital Signs Date Time Temp Pulse Resp B/P Pulse Ox O2 Delivery O2 Flow Rate FiO2 10/30/16 21:36 20 Room Air 10/30/16 20:48 98.0 92 144/103 98 98.0 Lab Values Laboratory Tests Test 10/30/16 21:10 White Blood Count 10.0x10^3/uL (4.0-11.0) Red Blood Count 5.01x10^6/uL (4.30-5.70) Hemoglobin 13.1g/dL (13.0-17.5) Hematocrit 39.9% (39.0-53.0) Mean Corpuscular Volume 80fL (79-100) Mean Corpuscular Hemoglobin 26pg (25-35) Mean Corpuscular Hemoglobin Concent 33g/dL (31-37) Red Cell Distribution Width 14.0% (11.5-14.5) Platelet Count 308x10^3/uL (140-400) Neutrophils (%) (Auto) 69% (31-73) Lymphocytes (%) (Auto) 14% (24-48) L Monocytes (%) (Auto) 11% (0-9) H Eosinophils (%) (Auto) 5% (0-3) H Basophils (%) (Auto) 1% (0-3) Neutrophils # (Auto) 6.9x10^3uL (1.8-7.7) Lymphocytes # (Auto) 1.4x10^3/uL (1.0-4.8) Monocytes # (Auto) 1.1x10^3/uL (0.0-1.1) Eosinophils # (Auto) 0.5x10^3/uL (0.0-0.7) Basophils # (Auto) 0.1x10^3/uL (0.0-0.2) Urine Collection Type Unknown Urine Color Yellow Urine Clarity Clear Urine pH 5.5 Urine Specific [place] 1.010 Urine Protein Negativemg/dL (NEG-TRACE) Urine Glucose (UA) Negativemg/dL (NEG) Urine Ketones (Stick) Negativemg/dL (NEG) Urine Blood Small (NEG) Urine Nitrite Negative (NEG) Urine Bilirubin Negative (NEG) Urine Urobilinogen Dipstick 0.2mg/dL (0.2 mg/dL) Urine Leukocyte Esterase Negative (NEG) Urine RBC Occ/HPF (0-2) Urine WBC Occ/HPF (0-4) Urine Squamous Epithelial Cells Occ/LPF Urine Bacteria 0/HPF (0-FEW) Urine Mucus Slight/LPF Sodium Level 138mmol/L (136-145) Potassium Level 3.7mmol/L (3.5-5.1) Chloride Level 101mmol/L (98-107) Carbon Dioxide Level 23mmol/L (21-32) Anion Gap 14 (6-14) Blood Urea Nitrogen 22mg/dL (8-26) Creatinine 1.7mg/dL (0.7-1.3) H Estimated GFR (Cockcroft-Gault) 45.3 Glucose Level 96mg/dL (70-99) Calcium Level 9.6mg/dL (8.5-10.1) Total Bilirubin 0.6mg/dL (0.2-1.0) Direct Bilirubin 0.1mg/dL (0.0-0.2) Aspartate Amino Transferase (AST) 25U/L (15-37) Alanine Aminotransferase (ALT) 28U/L (16-63) Alkaline Phosphatase 82U/L (46-116) Total Protein 8.5g/dL (6.4-8.2) H Albumin 3.6g/dL (3.4-5.0) Laboratory Tests 10/30/16 21:10 Laboratory Tests 10/30/16 21:10 Radiology/Procedures Radiology/Procedures CT abdomen and pelvis with IV contrast Impression: Adenopathy in the periaortic region. Postop changes in the pelvis with some mesenteric stranding but no abnormal fluid collections seen. Peaking of the anterior wall of the bladder extending to the anterior abdominal wall which may reflect adhesions. The appearance is unchanged from previous exam. Prominent left renal pelvis and caliceal system new from previous exam without evidence of a calculus along the course of the ureter. But obstructive uropathy cannot be excluded. Recommend followup. Electronically signed by: Brittany Solano MD (Oct 30, 2016 23:45:50) Course & Med Decision Making Course & Med Decision Making Pertinent Labs and Imaging studies reviewed. (See chart for details) Workup is unremarkable other than left hydronephrosis. His symptoms have resolved at this time. Abdomen soft/NT. He is tolerating po and would like to go home. He will follow up with Dr. Jernigan, oncology, tomorrow. Return precautions given. He and understand and agree with plan. Dragon Disclaimer Dragon Disclaimer This electronic medical record was generated, in whole or in part, using a voice recognition dictation system. Departure Departure Impression: Primary Impression: Back pain Additional Impression: Abdominal pain Disposition: HOME, SELF-CARE Condition: STABLE Referrals: POOJA BUI MD (PCP) Patient Instructions: Abdominal Pain, [id number] Additional Instructions: Follow-up with your primary care doctor. Return for any concerns. Problem Qualifiers Primary Impression: Back pain Back pain location: low back pain Chronicity: acute Back pain laterality: left Sciatica presence: without sciatica Qualified Code: M54.5 - Low back pain Additional Impression: Abdominal pain Abdominal location: lower abdomen, unspecified Qualified Code: R10.30 - Lower abdominal pain, unspecified Portillo MUNOZ MD Oct 31, 2016 00:00
== END 2016-10-31 00:05 | disposition home or self-care (01) ==
LOC: ER 20:41
DX: M54.5 Low back pain (principal); R10.30 Lower abdominal pain, unspecified; Z90.49 Acquired absence of other specified parts of digestive tract; Z88.6 Allergy status to analgesic agent; Z88.8 Allergy status to other drugs, medicaments and biological substances
CPT/HCPCS: 36415; 74177; 80048; 80076; 81001; 85027; 96361; 96374; 96375; 99285; J1170; J2405; J7030; Q9967

== ENCOUNTER 2016-11-07 13:37 | Day surgery (SDC) | payer BC ==
[~2016-11-07] VITALS: Ht 180.3 cm; Wt 147.4 kg
[~2016-11-07 13:37] MED LIST changes: +FENTANYL PF 100 MCG/2 ML VIAL. IV PRN; +IOHEXOL 300 MG/ML 50 ML VIAL. ONE; +IV RINGERS,LACTATED 1000ML 1,000 ML IV SCH; +LIDOCAINE 1% 1 ML SYRINGE. ID PRN; +OMEP20TA63 PO; +ONDA8TAB12 PO; +ONDANSETRON PF 4 MG/2 ML VIAL. IV PRN; +PROCHLORPERAZINE 10 MG/2 ML VIAL. IV PRN
[2016-11-07] MEDS ORDERED: ALPR0.5T6 PO (14:00)
[2016-11-07] MEDS ORDERED: ONDANSETRON PF 4 MG/2 ML VIAL. ONE (14:39)
[2016-11-07] MEDS ORDERED: PROPOFOL 20 ML IV ONE (14:39)
[2016-11-07] MEDS ORDERED: LIDOCAINE 2% 100 MG/5 ML DISP.SYRIN. ONE (14:39)
[2016-11-07] MEDS ORDERED: DESFLURANE 16 TO 30 MINUTES. IH ONE (14:39)
[2016-11-07] MEDS ORDERED: DEXAMETHASONE SOD PHOS 20 MG/5 ML VIAL. ONE (14:39)
[2016-11-07] MEDS ORDERED: FENTANYL PF 100 MCG/2 ML VIAL. ONE (14:39)
[2016-11-07] MEDS ORDERED: FENTANYL PF 100 MCG/2 ML VIAL. IV ONE (14:45)
--- NOTE | 2016-11-07 15:47 | PDOC ---
BRIEF OPERATIVE NOTE Date: Nov 07, 2016 Pre-Op Diagnosis Left Hydronephrosis, Metastatic Colon Cancer Post-Op Diagnosis Same Procedure Performed Cystoscopy placement of Left ureteral stent (4.8 by 26cm) Surgeon Manish Anesthesia Type: General Specimens Obtained None Findings severe stenosis mid left ureter, with Left Hydronephrosis Complications None Additional Remarks Tolerated well, f/u with Dr. Jernigan, Oncology RANDEE BURGOS DO Nov 07, 2016 15:47
--- NOTE | 2016-11-07 15:49 | DISCH ---
DISCHARGE INSTRUCTIONS Condition on Discharge Condition on Discharge: Stable Activity After Discharge Activity Instructions for Disc: Resume previous activity Driving Instructions after Dis: Do not drive today Diet after Discharge Diet after Discharge: Regular Additional Diet Restrictions: Drink 8-10 12oz of glasses of water/day with stent Contacting the DRMaria De Jesus after DC Call your doctor for: Concerns you may have Follow-Up Follow up with: With Dr. Jernigan (oncology) RANDEE BURGOS DO Nov 07, 2016 15:49
[2016-11-07] MEDS ORDERED: HYDROCODONE/APAP 5/325MG TABLET. ONE (15:53)
[2016-11-07] MEDS ORDERED: HYDROCODONE/APAP 5/325MG TABLET. PO PRN (16:00)
[2016-11-07 16:25] VITALS: BP 140/86
--- NOTE | 2016-11-07 19:22 | OP ---
DATE OF SURGERY: 11/07/2016 PREOPERATIVE DIAGNOSES: Left hydronephrosis, metastatic colon cancer. POSTOPERATIVE DIAGNOSES: Left hydronephrosis, metastatic colon cancer. PROCEDURE: Cystoscopy, left retrograde pyelogram, placement of indwelling left ureteral stent (4.8 Serbian x 26 cm). SURGEON: Randee Burgos DO. ANESTHESIA: General. INDICATIONS AND JUDGMENT: This is a 36-year-old male with a history of metastatic colon cancer. The tumor has partially obstructed the mid left ureter and therefore, it was felt that he would benefit from cystoscopy stent placement to relieve the left hydronephrosis. The procedure was explained to the patient possible risks and complications. He appears to understand and is agreeable. DESCRIPTION OF PROCEDURE: The patient was preloaded with Levaquin 500 mg IV. He was taken to the operating room and placed on the operating room table in supine position, given a general anesthetic and then placed in the dorsal lithotomy position using Genaro stirrups since we do not have a cystoscopy table. A C-arm was moved into position. Rigid cystoscopy was performed. The urethra was normal course and caliber. The prostate was unremarkable. The scope was advanced into the bladder. The bladder was examined. There was no evidence of tumor or calculi within the bladder. The left ureteral orifice was identified. It was cannulated with an 8 Serbian cone tip ureteral catheter. Contrast was injected. The mid left ureter was extremely stenotic and proximal to that was dilated ureter and rather severe dilation of the left renal pelvis and calices. I then advanced a 0.035 Glidewire up the left ureteral orifice through the stenotic area and into the renal pelvis. Following that, a 4.8 Serbian x 26 cm double-J ureteral stent was advanced over the Glidewire under fluoroscopy. There was mild resistance at the level of stenosis in the mid left ureter, but I was able to finally pass the stent on up into the dilated renal pelvis. The positioning appeared to be satisfactory, therefore, the wire was removed and leaving the stent in place. The patient tolerated the procedure well and was sent to recovery room in satisfactory condition. Plans will be to discharge the patient home. He is given a prescription for Cipro 500 mg p.o. b.i.d. for 3 days, prescription for hydrocodone ____ every 6 hours dispensed 20 and a prescription for generic Pyridium 200 mg b.i.d. as needed for dysuria. The patient will follow up with his oncologist, Dr. Jernigan. RANDEE BURGOS DO DR: ANTOINETTE/nts JOB#: [id number] / [id number]
== END 2016-11-07 16:35 | disposition home or self-care (01) ==
LOC: SURG 13:37
PROVIDERS: ATTEND Urology
DX: N13.30 Unspecified hydronephrosis (principal); C18.9 Malignant neoplasm of colon, unspecified; E66.9 Obesity, unspecified; K21.9 Gastro-esophageal reflux disease without esophagitis; F41.9 Anxiety disorder, unspecified; Z90.49 Acquired absence of other specified parts of digestive tract; Z87.442 Personal history of urinary calculi
CPT/HCPCS: 52332; 74420; C1769; C2617; J1100; J1956; J2405; J2704; J3010; Q9967

== ENCOUNTER → 2017-01-04 | Outpatient (CLI) | payer BC ==
[~2017-01-04] MED LIST changes: +ALPR0.5T6 PO; +CONTRAST GIVEN MC PRN; -FENTANYL PF 100 MCG/2 ML VIAL. IV PRN; +IOHEXOL 240 MG/ML 50ML VIAL. PO ONE; -IOHEXOL 300 MG/ML 50 ML VIAL. ONE; +IOHEXOL 300 MG/ML 75 ML VIAL IV ONE; -IV RINGERS,LACTATED 1000ML 1,000 ML IV SCH; -LIDOCAINE 1% 1 ML SYRINGE. ID PRN; -ONDANSETRON PF 4 MG/2 ML VIAL. IV PRN; -PROCHLORPERAZINE 10 MG/2 ML VIAL. IV PRN
--- NOTE | 2017-01-04 12:52 | RAD ---
CT of the chest, abdomen and pelvis with contrast, 01/04/2017: History: Colon cancer restaging Multidetector CT imaging was performed following oral and IV administration of contrast. Comparison is made to a chest CT study from 08/30/2016, as well as a CT abdomen and pelvis exam from 10/30/2016. Previously seen mediastinal adenopathy has resolved. There are only small mediastinal lymph nodes of normal size. There are calcified right peritracheal and right hilar lymph nodes. The thoracic aorta is of normal caliber. A right Port-A-Cath extends to the level of the atriocaval junction. There is a calcified granuloma in the right upper lobe. There are minimal linear and groundglass opacities in the posterior aspects of the lungs, improved since the previous study. The findings suggest atelectasis and/or scarring. No pulmonary mass is evident. There is no evidence of pleural fluid. No hepatic mass is identified. The gallbladder is surgically absent. No pancreatic abnormality is detected. The spleen is of normal size. A left ureteral stent has been inserted in satisfactory position. There is a prominent extrarenal pelvis on the left. No hydronephrosis is seen on either side. No renal or adrenal mass is identified. The abdominal aorta is of normal caliber. Previously seen mild periaortic and retrocrural adenopathy has resolved. There are several small residual periaortic lymph nodes which do not demonstrate pathologic enlargement. No iliac or inguinal adenopathy is seen. The bowel loops are not dilated. No free fluid is evident in the abdomen or pelvis. IMPRESSION: 1. Mediastinal, retroperitoneal and retrocrural adenopathy have resolved compatible with a favorable response to therapy. 2. Mild residual atelectasis and/or scarring posteriorly in both lungs. 3. A left ureteral stent has been placed in satisfactory position. PQRS Compliance Statement: One or more of the following individualized dose reduction techniques were utilized for this examination: 1. Automated exposure control 2. Adjustment of the mA and/or kV according to patient size 3. Use of iterative reconstruction technique
== END | disposition home or self-care (01) ==
LOC: CT 07:10
PROVIDERS: ATTEND Internal Medicine Hematology & Oncology
DX: C18.7 Malignant neoplasm of sigmoid colon (principal); C79.51 Secondary malignant neoplasm of bone
CPT/HCPCS: 71260; 74177; Q9966; Q9967

== ENCOUNTER → 2017-03-29 | Outpatient (CLI) | payer BC ==
[~2017-03-29] MED LIST changes: -CONTRAST GIVEN MC PRN; +IOHEXOL 300 MG/ML 100ML VIAL. IV ONE; -IOHEXOL 300 MG/ML 75 ML VIAL IV ONE; -OXYC-250 PO; +OXYC-328 PO
--- NOTE | 2017-03-29 14:11 | KCIC ---
Indication: Right testicular mass. Colon cancer. Chemotherapy. Prior surgery. Technique: Axial images and coronal and sagittal reformatted images are provided. 100 mL of intravenous Omnipaque 300 and oral contrast were administered. Comparison is from January 04, 2017. Additional comparison is from October 30, 2016. One or more of the following individualized dose reduction techniques were utilized for this examination: 1. Automated exposure control 2. Adjustment of the mA and/or kV according to patient size 3. Use of iterative reconstruction technique Findings: Chest: Calcified granuloma is noted on the right. There is dependent atelectasis or scarring. There is no worrisome pulmonary nodule. Central airways are patent. There is no pleural effusion. Port is noted. Calcified mediastinal lymph nodes are present. No pathologically enlarged hilar or mediastinal lymph node is identified. Heart is not enlarged. There are minimal degenerative changes in the thoracic spine. Abdomen: There is no discrete hepatic mass. Gallbladder is absent. Spleen is not enlarged. Pancreas and adrenals are unremarkable. Kidneys are symmetrically perfused. Mild dilation of the right renal pelvis and right ureter are noted without obstructing stone present. Left ureteral stent has been removed, the left ureter does not appear dilated on today's study. There does appear to be an extrarenal pelvis on the left. Stranding of the perinephric and retroperitoneal fat is mild. This is similar to prior. Retroperitoneal lymph nodes are decreased in size and number from the October study and are similar to the December exam. There are a few mildly prominent lymph nodes remaining measuring up to 13 x 8 mm in size. Aorta is normal caliber. There is no small bowel obstruction or mural thickening. Contrast does not reach the colon, the colon is grossly unremarkable. Pelvis: There is no free pelvic fluid. Bladder is unremarkable. There is no pelvic adenopathy. There is a clip anterior to the rectum. There is no worrisome bone lesion. Probable small bone island near the left acetabulum is noted. There is mild degenerative change in the spine. IMPRESSION: Chest: 1. No evidence of metastatic disease within the chest. Abdomen/pelvis: 1. A few mildly prominent retroperitoneal lymph nodes are stable compared to the December study. 2. Nonspecific stranding in the retroperitoneum may be post therapeutic. 3. Mildly prominent right renal collecting system, nonspecific, no obstructing calculus or lesion is identified. Electronically signed by: Farooq Miller MD (03/29/2017 2:08 PM) [email or web address]
== END | disposition home or self-care (01) ==
LOC: KCIC CT 11:01
PROVIDERS: ATTEND Internal Medicine Hematology & Oncology
DX: N50.89 Other specified disorders of the male genital organs (principal); C18.9 Malignant neoplasm of colon, unspecified; Z98.890 Other specified postprocedural states
CPT/HCPCS: 71260; 74177; Q9966; Q9967

== ENCOUNTER → 2017-04-24 | Outpatient (CLI) | payer BC ==
[~2017-04-24] MED LIST changes: -IOHEXOL 240 MG/ML 50ML VIAL. PO ONE; -IOHEXOL 300 MG/ML 100ML VIAL. IV ONE
--- NOTE | 2017-04-24 10:24 | RAD ---
Chest, 2 views, 04/24/2017: History: Cough, colon cancer A right Port-A-Cath extends into the superior vena cava. The heart size and pulmonary vascularity are normal. There are calcified mediastinal lymph nodes. No pulmonary infiltrates or nodularity is seen. There is no evidence of pleural fluid. IMPRESSION: 1. A right Port-A-Cath is in satisfactory position. 2. No acute cardiopulmonary abnormality is detected.
== END | disposition home or self-care (01) ==
LOC: RAD 09:56
PROVIDERS: ATTEND Nurse Practitioner Adult Health
DX: Z45.2 Encounter for adjustment and management of vascular access device (principal); C80.1 Malignant (primary) neoplasm, unspecified; R05 Cough
CPT/HCPCS: 71020

== ENCOUNTER → 2017-05-25 | Outpatient (CLI) | payer BC ==
[~2017-05-25] MED LIST changes: +CONTRAST GIVEN MC PRN; +IOHEXOL 240 MG/ML 50ML VIAL. PO ONE; +IOHEXOL 300 MG/ML 75 ML VIAL IV ONE
--- NOTE | 2017-05-25 15:41 | RAD ---
CT of the chest, abdomen and pelvis with contrast, 05/25/2017: History: Restaging colon cancer Multidetector CT imaging was performed following oral and IV administration of contrast. Comparison is made to a study study from December 27, 2016 and 01/04/2017. A right Port-A-Cath extends to the level of the atriocaval junction. There are calcified mediastinal lymph nodes compatible with granulomatous disease. No mediastinal or hilar adenopathy is evident. A trace amount of pericardial fluid is present. The heart is not enlarged. A calcified granuloma is present in the right upper lobe. There are several faint streaky parenchymal opacities compatible with scarring. Small foci of pleural thickening are unchanged and are compatible with scarring. No acute infiltrate or mass is seen. No pleural fluid is evident. No hepatic abnormality is identified. The gallbladder is surgically absent. No pancreatic abnormality is seen. The spleen is of normal size. No adrenal abnormality is detected. The left kidney is unremarkable. There is moderate distention of the right renal pelvis. This is unchanged since 03/29/2017 but was new compared to the 01/04/2017 exam. The right ureter is not significantly dilated. The abdominal aorta is of normal caliber. Several small para-aortic and pericaval lymph nodes are again identified. There is a 14 mm node along the left side of the distal abdominal aorta and a 13 mm node in the left common iliac region both of which appear to have increased slightly in size since 01/04/2017. Areas of streaky increased density in the retroperitoneum and anterior perirenal spaces have progressed slightly. This is best seen along the anterior aspect of the inferior vena cava on axial images 44 through 49. No significant free fluid is evident in the abdomen or pelvis. The bowel loops are not dilated. There is diastases of the rectus abdominis musculature. There is a new small ventral hernia just to the right of midline and just inferior to the level the umbilicus. It contains only fat. IMPRESSION: 1. No evidence of metastatic disease in the chest. 2. Streaky retroperitoneal and pararenal opacities have progressed slightly. This may represent nonspecific edema and/or scarring versus residual/recurrent tumor. 3. Slightly prominent distal aortic and left common iliac lymph nodes have increased slightly in size since 01/04/2017. 4. Mild right hydronephrosis, unchanged since 03/29/2017. PQRS Compliance Statement: One or more of the following individualized dose reduction techniques were utilized for this examination: 1. Automated exposure control 2. Adjustment of the mA and/or kV according to patient size 3. Use of iterative reconstruction technique
== END | disposition home or self-care (01) ==
LOC: CT 10:07
PROVIDERS: ATTEND Internal Medicine Hematology & Oncology
DX: C18.7 Malignant neoplasm of sigmoid colon (principal); N13.39 Other hydronephrosis
CPT/HCPCS: 71260; 74177; Q9966; Q9967

== ENCOUNTER → 2017-06-01 | Outpatient (CLI) | payer BC ==
[~2017-06-01] MED LIST changes: -CONTRAST GIVEN MC PRN; +GADOBUTROL 10 MMOL/10 ML VIAL IV ONE; -IOHEXOL 240 MG/ML 50ML VIAL. PO ONE; -IOHEXOL 300 MG/ML 75 ML VIAL IV ONE
--- NOTE | 2017-06-01 10:36 | RAD ---
INDICATION: Low back pain and bilateral radiculopathy for 2 months. No known injury. Discectomy. Colon cancer. TECHNIQUE: Sagittal T1, sagittal T2, sagittal STIR, sagittal postcontrast, axial T1, axial T2, and axial postcontrast sequences are provided. 10 mL of intravenous Gadavist was administered without complication. No comparison is available. FINDINGS: There is 4 mm of retrolisthesis at the lumbosacral junction. There is no marrow edema. There is no worrisome marrow lesion. There is no pathologic enhancement within the vertebral bodies. The nerve roots demonstrate abnormal enhancement diffusely. There is abnormal enhancement along the surface of the cord. There is no signal abnormality within the conus nodularis. There is disc desiccation and narrowing of disc height at L5-S1. The numbering system assumes 5 lumbar type vertebral bodies. Findings by individual level are as follows: L1-L2, L2-L3: There is no canal or foraminal compromise. L3-L4: There is a minimal disc bulge without canal or foraminal compromise. L4-L5: Minimal disc bulge and facet hypertrophy are noted with minimal foraminal narrowing. L5-S1: Mild disc bulge is noted. There is also a right foraminal herniation. Herniation measures at least 11 x 4 mm. There is no canal stenosis. There is moderate to severe right foraminal narrowing secondary to the herniation, with contact with the exiting nerve root. Left foraminal narrowing is minimal. Retroperitoneal adenopathy is noted, please see recent CT chest, abdomen, and pelvis. IMPRESSION: 1. Diffusely abnormal enhancement within the cauda equina and along the surface of the conus medullaris and distal thoracic cord. CSF seeding of metastatic disease is a consideration. Given the cauda equina involvement is rather diffuse and smooth, arachnoiditis is a consideration. Correlation with lumbar puncture may be of benefit. MR imaging of the brain, cervical, and thoracic spine with and without contrast may be of benefit. 2. Degenerative changes are greatest at the lumbosacral junction. Electronically signed by: Farooq Miller MD (06/01/2017 10:32 AM) [id number]
== END | disposition home or self-care (01) ==
LOC: MRI 08:12
PROVIDERS: ATTEND Internal Medicine Hematology & Oncology
DX: C18.9 Malignant neoplasm of colon, unspecified (principal); G03.8 Meningitis due to other specified causes; M54.42 Lumbago with sciatica, left side
CPT/HCPCS: 72158; A9585

== ENCOUNTER 2017-06-25 10:51 | Inpatient (IN) | payer BC ==
[~2017-06-25] VITALS: Ht 180.3 cm; Wt 122.5 kg
[~2017-06-25 10:51] MED LIST changes: -GADOBUTROL 10 MMOL/10 ML VIAL IV ONE; +MORP30TA83 PO; +OXYC10TA PO
[2017-06-25] MEDS ORDERED: IV NORMAL SALINE 1000ML BAG 1,000 ML IV ONE (11:30)
--- NOTE | 2017-06-25 11:31 | RAD ---
Portable chest, 06/25/2017: History: Shortness of breath, cancer in the spine Comparison is made to a study from 06/24/2017. A right Port-A-Cath extends into the superior vena cava. The heart size and pulmonary vascularity are normal. There are granulomatous calcifications in the mediastinum. No pulmonary infiltrates are seen. There is no evidence of pleural fluid. IMPRESSION: No acute cardiopulmonary abnormality is detected.
[2017-06-25 11:38] LABS: HCO3 ABG 20 mmol/L (21-28); PCO2 ABG 30 mmHg (35-46); PH ABG 7.43 (7.35-7.45); PO2 ABG 88 mmHg (75-108); SAT O2 ABG 97 % (92-99)
[2017-06-25 11:46] LABS: BASO % 1 % (0-3); EOS % 3 % (0-3); HEMOGLOBIN 15.3 g/dL (13.0-17.5); LYMPH # 0.5 x10^3/uL (1.0-4.8); LYMPH % 8 % (24-48); MEAN CORPUSCULAR HEMOGLOBIN 29 pg (25-35); MEAN CORPUSCULAR HGB CONC 33 g/dL (31-37); MEAN CORPUSCULAR VOLUME 89 fL (79-100); MONO % 15 % (0-9); NEUT % 74 % (31-73); PLATELET COUNT 143 x10^3/uL (140-400); RED BLOOD COUNT 5.19 x10^6/uL (4.30-5.70); RED CELL DISTRIBUTION WIDTH 18.1 % (11.5-14.5); WHITE BLOOD COUNT 6.8 x10^3/uL (4.0-11.0)
[2017-06-25 11:57] LABS: CALCIUM 9.3 mg/dL (8.5-10.1); CREATININE 0.8 mg/dL (0.7-1.3); GFR 107.6
[2017-06-25 12:03] LABS: ALBUMIN 3.1 g/dL (3.4-5.0); ALBUMIN/GLOBULIN RATIO 0.8 (1.0-1.7); TOTAL BILIRUBIN 0.9 mg/dL (0.2-1.0)
[2017-06-25] MEDS ORDERED: LABETALOL 20 MG/4 ML DISP.SYRIN. IVP ONE (13:00)
[2017-06-25] MEDS ORDERED: CONTRAST GIVEN MC PRN (13:15)
[2017-06-25] MEDS ORDERED: IOHEXOL 300 MG/ML 100ML VIAL. IV ONE (13:15)
--- NOTE | 2017-06-25 13:56 | RAD ---
Indication: Chest pain and short of air. Colon cancer. Technique: Axial images and coronal and sagittal maximum intensity projection reformatted images are provided. 75 mL of intravenous Omnipaque 300 was administered without complication. Comparison is from May 25, 2017. One or more of the following individualized dose reduction techniques were utilized for this examination: 1. Automated exposure control 2. Adjustment of the mA and/or kV according to patient size 3. Use of iterative reconstruction technique Findings: There is no central filling defect to suggest pulmonary embolism. A small peripheral embolus could be missed given mixing artifact. Thoracic aorta is normal caliber. Heart is not enlarged. There is no hilar or mediastinal adenopathy. Central airways are patent. There is a small to medium right and trace left pleural effusion. There is minimal passive atelectasis. There are calcified granulomas. Linear bands of atelectasis or scarring are noted. There is no pulmonary nodule. Port is noted. Gallbladder is absent. No osseous lesion is apparent. Impression: 1. Negative for central pulmonary embolism. Limited evaluation for a small peripheral embolus. 2. Bilateral pleural effusions, greater on the right. 3. No evidence of metastatic disease within the chest.
[2017-06-25] MEDS ORDERED: HYDROmorphone 2 MG/ML VIAL IV SCH (15:30)
--- NOTE | 2017-06-25 15:30 | PHYS DOC ---
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 Patient was admitted to the hospital for the same 2 days ago and was released late last night. Patient's spouse states the patient has not been able to eat and has been confused in a delirious state. Patient does not appear to have hallucinations. He has not had pulse injuries or head trauma. Symptoms are most pronounced after taking morphine. The patient's spouse contacted Dr. Laguerre's office morning who referred him to the emergency department for further evaluation. Dr. Washington did contact the ED and request MRI with contrast of the brain and cervical spine and thoracic spine.s. [] Review of Systems Review of Systems ROS as per HPI>. All other systems were reviewed and found to be within normal limits, except as documented in this note. Current Medications Current Medications Current Medications Medications (Trade) Dose Ordered Sig/Wendi Start Time Stop Time Status Last Admin Dose Admin Labetalol HCl (Normodyne) 20 mg 1X ONCE 06/25/17 13:00 06/25/17 13:01 DC 06/25/17 13:02 20 MG Sodium Chloride 1,000 ml @ 1,000 mls/hr 1X ONCE 06/25/17 11:30 06/25/17 12:29 DC 06/25/17 11:41 1,000 MLS/HR Allergies Allergies Allergies Coded Allergies Type Severity Reaction Last Updated Verified cortisone Allergy Intermediate Hives 11/07/16 Yes tramadol Allergy Intermediate 11/07/16 Yes Physical Exam Physical Exam Constitutional: Well developed, well nourished, no acute distress, non-toxic appearance. [] HENT: Normocephalic, atraumatic, bilateral external ears normal, oropharynx moist, no oral exudates, nose normal. [] Eyes: PERRLA, EOMI, conjunctiva normal, no discharge. [] Neck: Normal range of motion, no tenderness. [] Cardiovascular:Heart rate regular rhythm, no murmur [] Lungs & Thorax: Bilateral breath sounds clear to auscultation [] Abdomen: Bowel sounds normal, soft. [] Skin: Warm, dry, no erythema, no rash. [] Back: diffuse back pain. [] Extremities: No tenderness. [] Neurologic: Alert and oriented X 2, normal motor function, normal sensory function, no focal deficits noted. [] Current Patient Data Vital Signs Vital Signs Date Time Temp Pulse Resp B/P (MAP) Pulse Ox O2 Delivery O2 Flow Rate FiO2 06/25/17 12:56 61 20 184/103 (130) 96 06/25/17 11:16 Room Air 06/25/17 11:06 97.5 97.5 Lab Values Laboratory Tests Test 06/25/17 11:35 06/25/17 11:40 White Blood Count 6.8 x10^3/uL (4.0-11.0) Red Blood Count 5.19 x10^6/uL (4.30-5.70) Hemoglobin 15.3 g/dL (13.0-17.5) Hematocrit 46.0 % (39.0-53.0) Mean Corpuscular Volume 89 fL (79-100) Mean Corpuscular Hemoglobin 29 pg (25-35) Mean Corpuscular Hemoglobin Concent 33 g/dL (31-37) Red Cell Distribution Width 18.1 % (11.5-14.5) H Platelet Count 143 x10^3/uL (140-400) Neutrophils (%) (Auto) 74 % (31-73) H Lymphocytes (%) (Auto) 8 % (24-48) L Monocytes (%) (Auto) 15 % (0-9) H Eosinophils (%) (Auto) 3 % (0-3) Basophils (%) (Auto) 1 % (0-3) Neutrophils # (Auto) 5.0 x10^3uL (1.8-7.7) Lymphocytes # (Auto) 0.5 x10^3/uL (1.0-4.8) L Monocytes # (Auto) 1.0 x10^3/uL (0.0-1.1) Eosinophils # (Auto) 0.2 x10^3/uL (0.0-0.7) Basophils # (Auto) 0.0 x10^3/uL (0.0-0.2) D-Dimer (Pati) 10.88 ug/mlFEU (0.00-0.50) H Sodium Level 133 mmol/L (136-145) L Potassium Level 4.0 mmol/L (3.5-5.1) Chloride Level 98 mmol/L (98-107) Carbon Dioxide Level 23 mmol/L (21-32) Anion Gap 12 (6-14) Blood Urea Nitrogen 15 mg/dL (8-26) Creatinine 0.8 mg/dL (0.7-1.3) Estimated GFR (Cockcroft-Gault) 107.6 BUN/Creatinine Ratio 19 (6-20) Glucose Level 105 mg/dL (70-99) H Calcium Level 9.3 mg/dL (8.5-10.1) Total Bilirubin 0.9 mg/dL (0.2-1.0) Aspartate Amino Transferase (AST) 27 U/L (15-37) Alanine Aminotransferase (ALT) 33 U/L (16-63) Alkaline Phosphatase 63 U/L (46-116) Troponin I Quantitative < 0.017 ng/mL (0.000-0.055) VI-Dgo-Z-Type Natriuretic Peptide 260 pg/mL (0-124) H Total Protein 7.0 g/dL (6.4-8.2) Albumin 3.1 g/dL (3.4-5.0) L Albumin/Globulin Ratio 0.8 (1.0-1.7) L Lipase 173 U/L (73-393) O2 Saturation 97 % (92-99) Arterial Blood pH 7.43 (7.35-7.45) Arterial Blood pCO2 at Patient Temp 30 mmHg (35-46) L Arterial Blood pO2 at Patient Temp 88 mmHg (75-108) Arterial Blood HCO3 20 mmol/L (21-28) L Arterial Blood Base Excess -3 mmol/L (-3-3) FiO2 21.0 Laboratory Tests 06/25/17 11:35 Laboratory Tests 06/25/17 11:35 EKG EKG [] Radiology/Procedures Radiology/Procedures [Recent CT head: reviewed] Course & Med Decision Making Course & Med Decision Making Pertinent Labs and Imaging studies reviewed. (See chart for details) [Patient's blood pressure pain, mental status addressed in the ED. Case reviewed with Dr. Washington recommends MRI with contrast imaging of the brain, C- spine and T-spine. This was communicated with Dr. partida who agrees to accept the patient.] Dragon Disclaimer Dragon Disclaimer This electronic medical record was generated, in whole or in part, using a voice recognition dictation system. Departure Departure Impression: Primary Impression: Colon cancer Additional Impressions: Back pain Altered mental status Disposition: 09 ADMITTED INPATIENT Admitting Physician: Malini Partida Condition: GUARDED Problem Qualifiers ESTEBAN MCLAIN DO Jun 25, 2017 15:29
[2017-06-25 15:32] VITALS: BP 158/115
--- NOTE | 2017-06-25 15:51 | PDOC ---
Provider Note Provider Note [address] IV (T2 N2 M1) adenocarcinoma of sigmoid colon with widespread adenopathy at dx. Bx SCLN 08/2016 Paliative sigmoid resection 09/2016. Then received palliative chemotherapy with excellent response. Recent hx of LBP. MRI L spine here revealed enhancement along inferior T and l spine meninges c/w leptomeningeal disease. LP + atypcial cells c/w malignancy. CEA rising over time 05/2017 1014 Received 15 Gy palliative radiation T11 to sacrum through 06/20/2017. Then went to [place] to see daughter play in [employer] event. Returns here with fatigue, head, neck and upper back pain and nausea and dizziness. also noted arm movement while asleep. Back pain better overall. Now asleep on floor. 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 Now symptoms worrisome for leptomeningeal disease possibly around brain C and T spine. Need MRI with latanya of brain, C and T spine. Discussed need for advanced directives and securing DPOA for spouse as well if not already done. Discussed with Dr Rodriguez in ER and Dr Partida following admit. CHARAN NELSON MD Jun 25, 2017 15:51
[2017-06-25] MEDS ORDERED: ALPRAZolam 0.5 MG TABLET PO PRN (18:45)
[2017-06-25] MEDS ORDERED: LORazepam 0.5 MG TABLET PO PRN (18:45)
--- NOTE | 2017-06-25 18:56 | PDOC1 ---
History and Physical Date of Admission Date of Admission DATE: 06/25/17 TIME: 18:39 Identification/Chief Complaint Chief Complaint back pain Problems: Source Source: Chart review, Patient History of Present Illness History of Present Illness discussed with Dr. Suarez X2 patient hard asleep when I tried to see him x2, then in severe pain when awake, pain 8/10 at best admit for severe back pain, known colon cancer with prior mets to lumbar spine recent travel to [place] for family, daughters band event. Pain has been out of control since, he was seen in Dr. Rutherford office, then sent to the ER, pain is new problem, has gotten prior treatment to lumbar spine with mets Past Medical History Cardiovascular: HTN Heme/Onc: Cancer, Other Hepatobiliary: No pertinent hx Psych: No pertinent hx Musculoskeletal: low back pain, Other Past Surgical History Past Surgical History: Cholecystectomy, Colon Resection, Other Family History Family History: No Significant, Hypertension, Other Social History ALCOHOL: none Drugs: None Current Problem List Problem List Problems Medical Problems: (1) Altered mental status Status: Acute (2) Back pain Status: Acute (3) Colon cancer Status: Acute Problems: Current Medications Current Medications Current Medications Sodium Chloride 1,000 ml @ 1,000 mls/hr 1X ONCE IV Last administered on 06/25 11:41; Start 06/25/17 at 11:30; Stop 06/25/17 at 12:29; Status DC Labetalol HCl (Normodyne) 20 mg 1X ONCE IVP Last administered on 06/25/17 13 :02; Start 06/25/17 at 13:00; Stop 06/25/17 at 13:01; Status DC Iohexol (Omnipaque 300 Mg/ml) 75 ml 1X ONCE IV ; Start 06/25/17 at 13:15; Stop 06/25/17 at 13:16; Status DC Info (Do NOT chart on this entry -- for MONITORING) 1 each PRN DAILY PRN MC SEE COMMENTS; Start 06/25/17 at 13:15; Stop 06/27/17 at 13:14 Hydromorphone HCl (Dilaudid) 1 mg PRN Q4HRS IV ; Start 06/25/17 at 15:30 Active Scripts Active Reported Oxycodone Hcl 10 Mg Tablet 10 Mg PO PO Q 2-4HRS PRN PAIN Ms Contin (Morphine Sulfate) 30 Mg Tablet.er 30 Mg PO BID Alprazolam 0.5 Mg Tablet 1 Tab PO BID PRN Zofran Odt (Ondansetron) 8 Mg Tab.rapdis 1 Tab PO Q8HRS Prilosec Otc (Omeprazole Magnesium) 20 Mg Tablet.dr 20 Mg PO DAILY Stool Softener Tablet (Sennosides/Docusate Sodium) 1 Each Tablet 1 Each PO DAILY Lorazepam 0.5 Mg Tablet 0.5 Mg PO PRN BID PRN Allergies Allergies: Coded Allergies: cortisone (Verified Allergy, Intermediate, Hives, 11/07/16) ITCHING tramadol (Verified Allergy, Intermediate, 11/07/16) EXTREME MIGRAINES ROS General: YES: Other, No: Chills, Night Sweats, Fatigue, Malaise, Appetite PSYCHOLOGICAL ROS: YES: Sleep disturbances, No: Anxiety, Behavioral Disorder, Concentration difficultie, Decreased libido , Depression, Disorientation, Hallucinations, Hostility, Irritablity, Memory difficulties, Mood Swings, Obsessive thoughts, Other Eyes: No Blurry vision, No Decreased vision, No Double vision, No Dry eyes, No Excessive tearing, No Eye Pain, No Itchy Eyes, No Loss of vision, No Photophobia , No Scotomata, No Uses contacts, No Uses glasses, No Other HEENT: No: Heacaches, Visual Changes, Hearing change, Nasal congestion, Nasal discharge, Oral lesions, Sinus pain, Sore Throat, Epistaxis, Sneezing, Snoring, Tinnitus, Vertigo, Vocal changes, Other Respiratory: No: Cough, Hemoptysis, Orthopnea, Pleuritic Pain, Shortness of breath, SOB with excertion, Sputum Changes, Stridor, Tachypnea, Wheezing, Other Cardiovascular: No Chest Pain, No Palpitations, No Orthopnea, No Paroxysmal Noc. Dyspnea, No Edema, No Lt Headedness, No Other Gastrointestinal: No Nausea, No Vomiting, No Abdominal Pain, No Diarrhea, No Constipation, No Melena, No Hematochezia, No Other Genitourinary: No Dysuria, No Frequency, No Incontinence, No Hematuria, No Retention, No Discharge, No Urgency, No Pain, No Flank Pain, No Other, No , No , No , No , No , No , No Musculoskeletal: Yes Joint Pain, Yes Joint Stiffness, Yes Joint Swelling, Yes Pain In: (back), No Gait Disturbance, No Muscle Pain, No Muscular Weakness, No Swelling In:, No Other Neurological: No Behavorial Changes, No Bowel/Bladder ControlChng, No Confusion , No Dizziness, No Gait Disturbance, No Headaches, No Impaired Coord/balance, No Memory Loss, No Numbness/Tingling, No Seizures, No Speech Problems, No Tremors, No Visual Changes, No Weakness, No Other Skin: No Dry Skin, No Eczema, No Hair Changes, No Lumps, No Mole Changes, No Mottling, No Nail Changes, No Pruritus, No Rash, No Skin Lesion Changes, No Other, No Acne Physical Exam General: Alert, Oriented X3, Cooperative, mild distress HEENT: Atraumatic, PERRLA Lungs: Clear to auscultation Abdomen: Normal bowel sounds, Soft Rectal Exam: not examined Extremities: No edema Skin: No significant lesion Neuro: Normal speech, Normal tone Psych/Mental Status: Mood NL Vitals Vitals Vital Signs Date Time Temp Pulse Resp B/P (MAP) Pulse Ox O2 Delivery O2 Flow Rate FiO2 06/25/17 15:32 97.5 83 18 158/115 (129) 92 Room Air 97.5 Labs Labs Laboratory Tests Test 06/25/17 11:35 06/25/17 11:40 White Blood Count 6.8 x10^3/uL (4.0-11.0) Red Blood Count 5.19 x10^6/uL (4.30-5.70) Hemoglobin 15.3 g/dL (13.0-17.5) Hematocrit 46.0 % (39.0-53.0) Mean Corpuscular Volume 89 fL (79-100) Mean Corpuscular Hemoglobin 29 pg (25-35) Mean Corpuscular Hemoglobin Concent 33 g/dL (31-37) Red Cell Distribution Width 18.1 % (11.5-14.5) Platelet Count 143 x10^3/uL (140-400) Neutrophils (%) (Auto) 74 % (31-73) Lymphocytes (%) (Auto) 8 % (24-48) Monocytes (%) (Auto) 15 % (0-9) Eosinophils (%) (Auto) 3 % (0-3) Basophils (%) (Auto) 1 % (0-3) Neutrophils # (Auto) 5.0 x10^3uL (1.8-7.7) Lymphocytes # (Auto) 0.5 x10^3/uL (1.0-4.8) Monocytes # (Auto) 1.0 x10^3/uL (0.0-1.1) Eosinophils # (Auto) 0.2 x10^3/uL (0.0-0.7) Basophils # (Auto) 0.0 x10^3/uL (0.0-0.2) D-Dimer (Pati) 10.88 ug/mlFEU (0.00-0.50) Sodium Level 133 mmol/L (136-145) Potassium Level 4.0 mmol/L (3.5-5.1) Chloride Level 98 mmol/L (98-107) Carbon Dioxide Level 23 mmol/L (21-32) Anion Gap 12 (6-14) Blood Urea Nitrogen 15 mg/dL (8-26) Creatinine 0.8 mg/dL (0.7-1.3) Estimated GFR (Cockcroft-Gault) 107.6 BUN/Creatinine Ratio 19 (6-20) Glucose Level 105 mg/dL (70-99) Calcium Level 9.3 mg/dL (8.5-10.1) Total Bilirubin 0.9 mg/dL (0.2-1.0) Aspartate Amino Transf (AST/SGOT) 27 U/L (15-37) Alanine Aminotransferase (ALT/SGPT) 33 U/L (16-63) Alkaline Phosphatase 63 U/L (46-116) Troponin I Quantitative < 0.017 ng/mL (0.000-0.055) UX-Lvd-A-Type Natriuretic Peptide 260 pg/mL (0-124) Total Protein 7.0 g/dL (6.4-8.2) Albumin 3.1 g/dL (3.4-5.0) Albumin/Globulin Ratio 0.8 (1.0-1.7) Lipase 173 U/L (73-393) O2 Saturation 97 % (92-99) Arterial Blood pH 7.43 (7.35-7.45) Arterial Blood pCO2 at Patient Temp 30 mmHg (35-46) Arterial Blood pO2 at Patient Temp 88 mmHg (75-108) Arterial Blood HCO3 20 mmol/L (21-28) Arterial Blood Base Excess -3 mmol/L (-3-3) FiO2 21.0 Laboratory Tests Test 06/25/17 11:35 06/25/17 11:40 White Blood Count 6.8 x10^3/uL (4.0-11.0) Red Blood Count 5.19 x10^6/uL (4.30-5.70) Hemoglobin 15.3 g/dL (13.0-17.5) Hematocrit 46.0 % (39.0-53.0) Mean Corpuscular Volume 89 fL (79-100) Mean Corpuscular Hemoglobin 29 pg (25-35) Mean Corpuscular Hemoglobin Concent 33 g/dL (31-37) Red Cell Distribution Width 18.1 % (11.5-14.5) Platelet Count 143 x10^3/uL (140-400) Neutrophils (%) (Auto) 74 % (31-73) Lymphocytes (%) (Auto) 8 % (24-48) Monocytes (%) (Auto) 15 % (0-9) Eosinophils (%) (Auto) 3 % (0-3) Basophils (%) (Auto) 1 % (0-3) Neutrophils # (Auto) 5.0 x10^3uL (1.8-7.7) Lymphocytes # (Auto) 0.5 x10^3/uL (1.0-4.8) Monocytes # (Auto) 1.0 x10^3/uL (0.0-1.1) Eosinophils # (Auto) 0.2 x10^3/uL (0.0-0.7) Basophils # (Auto) 0.0 x10^3/uL (0.0-0.2) D-Dimer (Pati) 10.88 ug/mlFEU (0.00-0.50) Sodium Level 133 mmol/L (136-145) Potassium Level 4.0 mmol/L (3.5-5.1) Chloride Level 98 mmol/L (98-107) Carbon Dioxide Level 23 mmol/L (21-32) Anion Gap 12 (6-14) Blood Urea Nitrogen 15 mg/dL (8-26) Creatinine 0.8 mg/dL (0.7-1.3) Estimated GFR (Cockcroft-Gault) 107.6 BUN/Creatinine Ratio 19 (6-20) Glucose Level 105 mg/dL (70-99) Calcium Level 9.3 mg/dL (8.5-10.1) Total Bilirubin 0.9 mg/dL (0.2-1.0) Aspartate Amino Transf (AST/SGOT) 27 U/L (15-37) Alanine Aminotransferase (ALT/SGPT) 33 U/L (16-63) Alkaline Phosphatase 63 U/L (46-116) Troponin I Quantitative < 0.017 ng/mL (0.000-0.055) OT-Ind-B-Type Natriuretic Peptide 260 pg/mL (0-124) Total Protein 7.0 g/dL (6.4-8.2) Albumin 3.1 g/dL (3.4-5.0) Albumin/Globulin Ratio 0.8 (1.0-1.7) Lipase 173 U/L (73-393) O2 Saturation 97 % (92-99) Arterial Blood pH 7.43 (7.35-7.45) Arterial Blood pCO2 at Patient Temp 30 mmHg (35-46) Arterial Blood pO2 at Patient Temp 88 mmHg (75-108) Arterial Blood HCO3 20 mmol/L (21-28) Arterial Blood Base Excess -3 mmol/L (-3-3) FiO2 21.0 VTE Prophylaxis Ordered VTE Prophylaxis Devices: No VTE Pharmacological Prophylaxi: Yes Assessment/Plan Assessment/Plan sigmoid adeno colon cancer metastatic cancer to lumbar spine known now thoracic pain, severe and unrelenting, check MRI thoracic and cervical spine, IV pain meds helping minimally, he reports Q2 hours oxycodone has been helping Dr. Suarez would also like MRI brain, but we are already at about a 90 minute exam, pain is prohibitive of longer in MRI pt would like to try to DC soon, maybe after MRI with f/u plan FARHEEN MACHADO MD Jun 25, 2017 18:56
[2017-06-25 19:00] VITALS: BP 154/92
[2017-06-25] MEDS ORDERED: oxyCODONE IR 5 MG TABLET PO PRN (19:00)
[2017-06-25] MEDS: ONDANSETRON ODT 4 MG TAB.RAPDIS. PO SCH (21:22)
[2017-06-25] MEDS: MORPHINE ER 30 MG TABLET.ER PO SCH (21:22)
[2017-06-25 23:00] VITALS: BP 138/93
[2017-06-26] MEDS: MORPHINE ER 30 MG TABLET.ER PO SCH ×2 (01:22→07:44)
[2017-06-26 03:00] VITALS: BP 125/96
[2017-06-26] MEDS: ONDANSETRON ODT 4 MG TAB.RAPDIS. PO SCH ×2 (05:26→13:45)
[2017-06-26 07:30] VITALS: BP 150/123
[2017-06-26] MEDS ORDERED: PANTOPRAZOLE 40 MG TABLET.DR. PO SCH (07:30)
[2017-06-26] MEDS ORDERED: oxyCODONE IR 5 MG TABLET PO PRN (08:30)
[2017-06-26] MEDS ORDERED: HYDROmorphone 2 MG/ML VIAL IV PRN (08:30)
--- NOTE | 2017-06-26 08:45 | PDOC ---
PROGRESS NOTES Chief Complaint Chief Complaint intractable back pain ASSESSMENT AND PLAN: 1. Thoracic back pain: much improved. C/T spine w/o clear evidence of mets, motion artefacts. d/w and family goal of pain regimen, titrating lng-acting meds to requirement of breakthrough meds 1-2x/d. with psychotic rxn to MS blayne after a few days, he is willing to give oxycontin a ry. script written 2. Colon CA with bone mets: finish XRT to bone mets 3. Elevated DDimer: CTA neg for PE History of Present Illness History of Present Illness pain much better controlled (received MScontin 30 this AM, double dose) Vitals Vitals Vital Signs Date Time Temp Pulse Resp B/P (MAP) Pulse Ox O2 Delivery O2 Flow Rate FiO2 06/26/17 08:10 150/123 06/26/17 07:44 91 Room Air 06/26/17 03:00 98.3 73 20 98.3 Physical Exam General: Alert, Oriented X3, Cooperative, No acute distress Heart: Regular rate Lungs: Clear Abdomen: Normal bowel sounds, Soft Extremities: No edema Skin: No rashes Labs LABS Laboratory Tests Test 06/25/17 11:35 06/25/17 11:40 White Blood Count 6.8 x10^3/uL (4.0-11.0) Red Blood Count 5.19 x10^6/uL (4.30-5.70) Hemoglobin 15.3 g/dL (13.0-17.5) Hematocrit 46.0 % (39.0-53.0) Mean Corpuscular Volume 89 fL (79-100) Mean Corpuscular Hemoglobin 29 pg (25-35) Mean Corpuscular Hemoglobin Concent 33 g/dL (31-37) Red Cell Distribution Width 18.1 % (11.5-14.5) Platelet Count 143 x10^3/uL (140-400) Neutrophils (%) (Auto) 74 % (31-73) Lymphocytes (%) (Auto) 8 % (24-48) Monocytes (%) (Auto) 15 % (0-9) Eosinophils (%) (Auto) 3 % (0-3) Basophils (%) (Auto) 1 % (0-3) Neutrophils # (Auto) 5.0 x10^3uL (1.8-7.7) Lymphocytes # (Auto) 0.5 x10^3/uL (1.0-4.8) Monocytes # (Auto) 1.0 x10^3/uL (0.0-1.1) Eosinophils # (Auto) 0.2 x10^3/uL (0.0-0.7) Basophils # (Auto) 0.0 x10^3/uL (0.0-0.2) D-Dimer (Pati) 10.88 ug/mlFEU (0.00-0.50) Sodium Level 133 mmol/L (136-145) Potassium Level 4.0 mmol/L (3.5-5.1) Chloride Level 98 mmol/L (98-107) Carbon Dioxide Level 23 mmol/L (21-32) Anion Gap 12 (6-14) Blood Urea Nitrogen 15 mg/dL (8-26) Creatinine 0.8 mg/dL (0.7-1.3) Estimated GFR (Cockcroft-Gault) 107.6 BUN/Creatinine Ratio 19 (6-20) Glucose Level 105 mg/dL (70-99) Calcium Level 9.3 mg/dL (8.5-10.1) Total Bilirubin 0.9 mg/dL (0.2-1.0) Aspartate Amino Transf (AST/SGOT) 27 U/L (15-37) Alanine Aminotransferase (ALT/SGPT) 33 U/L (16-63) Alkaline Phosphatase 63 U/L (46-116) Troponin I Quantitative < 0.017 ng/mL (0.000-0.055) NA-Bnt-J-Type Natriuretic Peptide 260 pg/mL (0-124) Total Protein 7.0 g/dL (6.4-8.2) Albumin 3.1 g/dL (3.4-5.0) Albumin/Globulin Ratio 0.8 (1.0-1.7) Lipase 173 U/L (73-393) O2 Saturation 97 % (92-99) Arterial Blood pH 7.43 (7.35-7.45) Arterial Blood pCO2 at Patient Temp 30 mmHg (35-46) Arterial Blood pO2 at Patient Temp 88 mmHg (75-108) Arterial Blood HCO3 20 mmol/L (21-28) Arterial Blood Base Excess -3 mmol/L (-3-3) FiO2 21.0 ERON VO MD Jun 26, 2017 08:45
[2017-06-26] MEDS ORDERED: SENNOSIDES/DOCUSATE 8.6/50MG TABLET. PO SCH (09:00)
[2017-06-26] MEDS ORDERED: NON FORMULARY ITEM (Omeprazole Magnesium (Prilosec Otc) 20 MG) PO SCH (09:00)
[2017-06-26] MEDS ORDERED: amLODIPine BESYLATE 2.5 MG TABLET PO SCH (09:00)
[2017-06-26] MEDS ORDERED: GADOBUTROL 10 MMOL/10 ML VIAL IV ONE (09:15)
[2017-06-26 10:30] VITALS: BP 153/112
--- NOTE | 2017-06-26 10:33 | RAD ---
MRI Thoracic Spine without and with contrast History: Abnormal lumbar spine MRI, colorectal cancer Technique: Multiplanar, multi sequential pre and postcontrast MR imaging was performed of the thoracic spine. Contrast: 10 cc Gadavist Comparison: None Findings: There is motion degradation. Thoracic cord is not expanded, difficult to accurately assess for cord signal abnormality given motion artifact. There is no expansile thoracic cord signal change. There is questionable mild patchy enhancement along the surface of the cord as suggested on the sagittal images although poorly evaluated due to motion. Thoracic vertebral body stature and AP alignment are maintained. There is small focus of signal abnormality of the T6 vertebral body which is hyperintense on T2 and STIR sequences and isointense on the T1 sequence, up to 0.8 cm longitudinal. There is moderate dependent right pleural effusion, small left dependent pleural effusion. There is no significant thoracic spinal stenosis. Minimal disc osteophyte complexes and protrusion slightly indent the ventral thecal sac such as in the lateral recesses bilaterally at T5-T6, right lateral recess at T6-7, right greater than left lateral recess at T7-T8. Impression: 1. There is questionable mild enhancement along the thoracic cord although poorly evaluated due to motion, 2. There is no significant thoracic spinal stenosis, mild indentation upon the ventral thecal sac at multiple levels by minimal disc osteophyte complexes/protrusions. 3. There are right greater than left dependent pleural effusions. 4. Small focus of marrow signal abnormality of the T6 vertebral body is nonspecific although hemangioma considered more likely than other marrow replacing lesion. Electronically signed by: Asher Gutiérrez MD (06/26/2017 10:29 AM) [id number]
--- NOTE | 2017-06-26 10:35 | RAD ---
MRI Cervical Spine with and without contrast History: Colorectal cancer, metastatic cancer Technique: Multiplanar, multi sequential pre and postcontrast MR imaging was performed of the cervical spine. Contrast: 10 cc Gadavist Comparison: None Findings: There is motion degradation. Cervical cord caliber is within normal limits without expansile signal change. There is questionable mild linear enhancement along the posterior surface of the cervical and superior thoracic cord as suggested on sagittal images although not as well visualized on axial images. Cervical vertebral body stature is preserved. There is no significant focal marrow edema of the cervical spine. There is no enhancement in the intervertebral disc spaces. There is no significant cervical spinal stenosis. There is no convincing cervical neural foramina compromise. There is mucosal thickening of visualized ethmoid air cells. There may be nonspecific increased T2 and STIR signal of the visualized julianna, not associated with significant enhancement. Impression: 1. Exam is degraded by motion. There is questionable mild enhancement along the posterior surface of the inferior cervical and superior thoracic cord as suggested on the sagittal images although otherwise difficult to characterize on this exam. Electronically signed by: Asher Gutiérrez MD (06/26/2017 10:31 AM) [facility]
[2017-06-26 15:00] VITALS: BP 155/107
--- NOTE | 2017-06-26 16:52 | PDOC ---
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 Previously received palliative radiation to T11 to sacrum completing 15 Gy last Sunday06/20/2017. Admitted with new neck and upper thoracic spine pain, nausea, vomiting fatigue. Lumbar back pain better. Now since admit sxs better still having pain on neck flexion on chin tuck. MRI C spine Meningeal enhancement posteriorly along inferior C spinal cord and visualized T spinal cord. (C5 to at least T2) MRI T spine Vague meningeal enhancement posteriorly in mid T spinal cord region with some degrading of imaging due to motion. PE Neurologic exam intact. Neck range of motion limited due to pain on forward flexion. Impression: Leptomeningeal carcinomatosis. Symptomatically most significant in lower C and upper T spine region. This is also the most clearly visualized on MRI scan. Overall symptoms better with some of his symptoms possibly related to narcotic toxicity. Plan on a short course of palliative radiation to mid C to upper T spine. Dr Jernigan may consider concurrent Temodar with radiation. Discussed need for advanced directives with patient and family and recommended DNR status. Plan to simulate for treatment tomorrow. CHARAN NELSON MD Jun 26, 2017 16:52
[2017-06-26] MEDS ORDERED: OXYC20TA34 PO (17:00)
--- NOTE | 2017-06-28 00:17 | DS ---
DATE OF DISCHARGE: 06/26/2017 CHIEF COMPLAINT: Intractable back pain. HOSPITAL COURSE: The patient is a 37-year-old gentleman with colon cancer, unfortunately metastatic to the spine. He is currently undergoing lumbar radiation. He presented to the hospital with intractable pain after returning from [place]. During his flight and in the airport, he did not have his breakthrough medications and was therefore in severe pain, which did not seem to respond to his regular home medications. He was admitted, initially given IV narcotics. An MRI of the C- and T-spine was obtained, which unfortunately was difficult to interpret secondary to motion degradation. Mild enhancement along the thoracic and cervical cord could not be excluded. Without clear evidence of metastatic disease, he was treated symptomatically. In discussion with him, he seemed not to be tolerant of increased doses of MS Contin long-term with psychotic episodes. We therefore decided to switch him to OxyContin instead. Goal of pain regimen was explained to him as well as his parents and . He was happy with the treatment as outlined. Eager to go home, which was okayed by Radiation Oncology, having follow up the following day. PHYSICAL EXAMINATION: VITAL SIGNS: With a blood pressure of 150/107, heart rate of 97, respiratory rate at 18. He is afebrile. GENERAL: This is a morbidly obese 37-year-old gentleman, alert and oriented, in no acute distress. HEENT: Without scleral icterus. NECK: Supple. LUNGS: Clear. HEART: Regular rate and rhythm. ABDOMEN: Obese, positive bowel sounds. EXTREMITIES: No edema. DISCHARGE DIAGNOSIS: Intractable back pain. DISCHARGE DISPOSITION: To home. DISCHARGE CONDITION: Improved. DISCHARGE MEDICATIONS: Please refer to MAR. DISCHARGE INSTRUCTIONS: The patient will follow up with Dr. Suarez as previously arranged. ERON VO MD DR: UR/nts JOB#: [id number] / [id number] POOJA Tineo MD
== END 2017-06-26 17:20 | disposition home or self-care (01) | DRG 55 ==
LOC: ER 10:51 → 5 NORTH 13:00
PROVIDERS: ADMIT Internal Medicine; ATTEND Internal Medicine
DX: C79.49 Secondary malignant neoplasm of other parts of nervous system (principal); C79.51 Secondary malignant neoplasm of bone; C18.9 Malignant neoplasm of colon, unspecified; I10 Essential (primary) hypertension; R79.1 Abnormal coagulation profile; Z82.49 Family history of ischemic heart disease and other diseases of the circulatory system
CPT/HCPCS: 36415; 36600; 71010; 71275; 72156; 72157; 80053; 82805; 83690; 83880; 84484; 85025; 85379; 96361; 96374; A9585; J1170; J3490; J7030; Q0162; 99285-25

== ENCOUNTER → 2017-06-29 | Outpatient (CLI) | payer BC ==
[2017-06-26 08:10] VITALS: BP 150/123
[~2017-06-29] MED LIST changes: +AMLO10TA2 PO; +CYCL5TAB PO; +DEXA2TAB PO; +GADOBUTROL 10 MMOL/10 ML VIAL IV ONE; +MORP15TA3 PO; +OXYC20TA34 PO
--- NOTE | 2017-06-29 10:52 | KCIC ---
MRI Brain with and without contrast History: Colon cancer, metastases to the spine Technique: Multiplanar, multi sequential pre and postcontrast MR imaging was performed of the brain. Contrast: 3 cc Gadavist Comparison: None Findings: There is mild motion. There is no evidence of recent infarct or cytotoxic edema. The ventricles, sulci, and cisterns are within normal limits in size and configuration. There is no significant midline shift, intraaxial mass effect, or focal abnormal extra-axial fluid collection. There is mild T2 and FLAIR hyperintense abnormality of the supratentorial periventricular white matter greatest about the occipital horns, also small focus of the right doyle radiata. There is mild to moderate T2 and FLAIR hyperintense signal abnormality of the julianna. There is no nodular parenchymal or leptomeningeal enhancement. There is preservation of the major intracranial flow-voids at the skull base. The cerebellar tonsils are normal in location. There is no significant abnormality of the pineal gland or pituitary gland. Paranasal sinuses are mostly aerated, patchy minimal ethmoid air cell mucosal thickening. The mastoid air cells are aerated. There is preserved marrow signal of the clivus. Impression: 1. There is no abnormal intracranial enhancement. Nonenhancing T2 and FLAIR hyperintense signal abnormality of the julianna and to lesser degree of the supratentorial white matter is nonspecific, may be due to sequela of post therapeutic change. Electronically signed by: Asher Gutiérrez MD (06/29/2017 10:49 AM) [facility]
== END | disposition home or self-care (01) ==
LOC: KCIC MRI 09:24
PROVIDERS: ATTEND Radiology Radiation Oncology
DX: C18.9 Malignant neoplasm of colon, unspecified (principal); C79.51 Secondary malignant neoplasm of bone
CPT/HCPCS: 70553; A9585

== ENCOUNTER 2017-07-08 12:30 | Inpatient (IN) | payer BC ==
[~2017-07-08] VITALS: Ht 180.3 cm; Wt 117.9 kg
[~2017-07-08 12:30] MED LIST changes: -AMLO10TA2 PO; -CYCL5TAB PO; -DEXA2TAB PO; -GADOBUTROL 10 MMOL/10 ML VIAL IV ONE; -MORP15TA3 PO
[2017-07-08] MEDS ORDERED: ONDANSETRON PF 4 MG/2 ML VIAL. IV ONE (13:30)
[2017-07-08] MEDS ORDERED: IV NORMAL SALINE 1000ML BAG 1,000 ML IV ONE (13:30)
[2017-07-08 13:34] LABS: BASO # 0.1 x10^3/uL (0.0-0.2); BASO % 1 % (0-3); EOS % 3 % (0-3); HEMATOCRIT 44.5 % (39.0-53.0); HEMOGLOBIN 14.9 g/dL (13.0-17.5); LYMPH # 0.5 x10^3/uL (1.0-4.8); LYMPH % 5 % (24-48); MEAN CORPUSCULAR HEMOGLOBIN 29 pg (25-35); MEAN CORPUSCULAR HGB CONC 34 g/dL (31-37); MEAN CORPUSCULAR VOLUME 87 fL (79-100); MONO % 14 % (0-9); NEUT % 77 % (31-73); PLATELET COUNT 200 x10^3/uL (140-400); RED BLOOD COUNT 5.13 x10^6/uL (4.30-5.70); RED CELL DISTRIBUTION WIDTH 17.2 % (11.5-14.5)
[2017-07-08] MEDS: IV NORMAL SALINE 1000ML BAG 1,000 ML IV SCH ×3 (13:34→18:15)
[2017-07-08] MEDS: MORPHINE SULFATE 4 MG/ML DISP.SYRIN. IV/SQ PRN ×3 (13:36→16:15)
[2017-07-08 13:46] LABS: CALCIUM 9.7 mg/dL (8.5-10.1); CREATININE 1.4 mg/dL (0.7-1.3); GFR 56.4; POTASSIUM 3.8 mmol/L (3.5-5.1)
[2017-07-08 13:52] LABS: ALBUMIN 2.6 g/dL (3.4-5.0); ALBUMIN/GLOBULIN RATIO 0.5 (1.0-1.7); MAGNESIUM 2.1 mg/dL (1.8-2.4); TOTAL BILIRUBIN 0.7 mg/dL (0.2-1.0); TOTAL PROTEIN 8.1 g/dL (6.4-8.2)
--- NOTE | 2017-07-08 14:09 | EKG ---
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
[2017-07-08] MEDS ORDERED: CONTRAST GIVEN MC PRN (14:30)
[2017-07-08] MEDS ORDERED: IOHEXOL 300 MG/ML 100ML VIAL. IV ONE (14:30)
--- NOTE | 2017-07-08 15:17 | RAD ---
CT ABD PELV W/ IV CONTRST ONLY History:Abdominal pain, vomiting Technique: After administration of intravenous contrast, CT imaging was performed of the abdomen and pelvis, multiplanar reconstruction images are submitted. Reportedly was infiltration at the IV site, remaining 30 cc contrast injected after initial infiltration. Total of 60 cc Omnipaque 300 was injected. Exposure: One or more of the following individualized dose reduction techniques were utilized for this exam: 1. Automated exposure control.2. Adjustment of the mA and/or KV according to patient size.3. Use of iterative reconstruction technique. Comparison: 05/25/2017 Findings:There has been interval development of at least small bilateral, right greater left pleural effusions. There is new mild perihepatic and perisplenic free fluid. There has been cholecystectomy as seen previously. Both kidneys enhance. There is again vzjk-[id number]-[id number] right hydronephrosis. There is very small right renal calculus. No ureteral calculus is identified. There is mild hazy and strandy density about the pancreas. Accurate evaluation of bowel is somewhat limited without oral contrast. There is no significant bowel dilatation or free air. There is again ventral hernia to the right of the midline near the umbilicus containing fat only, neck on the order of 2.4 cm in transverse dimension of hernia sac 3 cm, some internal mild linear and strandy density. Appendix is not clearly identified. There is some possible mild wall thickening of the descending and transverse duodenum. There are again several mesenteric lymph nodes. There are slightly more prominent nodes near the celiac axis. There are again some retroperitoneal nodes such as notable left lateral to the abdominal aorta up to 1.2 cm short axis dimension, present previously. There is again some strandy change of the pelvic fat as seen previously. There is no adrenal nodularity. Impression: 1.There are new at least small pleural effusions bilaterally greater the right. There is new mild free fluid in the abdomen. There is relative increased hazy and strandy density about the pancreas, pancreatitis not excluded. There is mild wall prominence of the distal descending as well as transverse duodenum, duodenitis not excluded. 2. There is nonspecific lymphadenopathy, slightly increased size of nodes near the celiac axis. 3. There is again [id number]-[id number] right hydronephrosis. There is a small nonobstructive right renal calculus. 4. There is again right ventral hernia near the umbilicus, some hazy density of the involved fat which could be due to incarceration.
[2017-07-08] MEDS ORDERED: VANCOMYCIN 1GM IVPB FOR OMNI 250 ML IV ONE (15:45)
[2017-07-08] MEDS ORDERED: PIPERACILLIN/TAZOBACTAM 4.5 GM in IV DEXTROSE 5% 100 ML IV ONE (15:45)
[2017-07-08] MEDS ORDERED: ONDANSETRON PF 4 MG/2 ML VIAL. IV PRN (15:45)
[2017-07-08] MEDS ORDERED: VANCOMYCIN 2 GM in IV DEXTROSE 5 %-0.2 % NACL 500 ML IV ONE (16:00)
[2017-07-08] MEDS ORDERED: PIPERACILLIN/TAZO IV Push 4.5 GM VIAL. IVP ONE (16:00)
--- NOTE | 2017-07-08 16:35 | PHYS DOC ---
Past Medical History Past Medical History: Cancer, Other Additional Past Medical Histor: STAGE 4 ADENOCARCINOMA,COLON CA METS TO SPINAL CHORD Past Surgical History: Cholecystectomy, Other Additional Past Surgical Histo: spine, r knee, l ankle,COLON RESECTION,PAC, LYMPH NODES REMOVED Alcohol Use: Rarely Drug Use: None Adult General Chief Complaint Chief Complaint: HEMATEMESIS/VOMITING BLOOD HPI HPI Patient is a 37 year old male who presents with nausea, vomiting, and abdominal pain. Patient reports 5 day history of illness with at least 5 episodes of vomiting daily, today seeing small amount of red blood in emesis. Last bowel movement was 4 days ago. Denies any hematochezia or melena. Reports upper abdominal pain. Denies fevers or chills, chest pain, shortness of breath, cough, dysuria or hematuria. Patient currently undergoing radiation for metastatic colon cancer, status post colon resection. Not currently receiving chemotherapy. He has had cholecystectomy in the past. Review of Systems Review of Systems Constitutional: Denies fever or chills Eyes: Denies change in visual acuity HENT: Denies nasal congestion or sore throat Respiratory: Denies cough or shortness of breath Cardiovascular: Denies chest pain or edema GI: Reports abdominal pain, nausea, vomiting, denies bloody stools or diarrhea : Denies dysuria or hematuria Musculoskeletal: Denies back pain or joint pain Integument: Denies rash or skin lesions Neurologic: Denies headache, focal weakness or sensory changes All other systems were reviewed and found to be within normal limits, except as documented in this note. Current Medications Current Medications Current Medications Medications (Trade) Dose Ordered Sig/Wendi Start Time Stop Time Status Last Admin Dose Admin Info (Do NOT chart on this entry -- for MONITORING) 1 each PRN DAILY PRN 07/08/17 14:30 07/10/17 14:29 Iohexol (Omnipaque 300 Mg/ml) 60 ml 1X ONCE 07/08/17 14:30 07/08/17 14:31 DC 07/08/17 14:29 60 ML Morphine Sulfate 4 mg PRN Q15MIN PRN 07/08/17 13:30 07/09/17 13:29 07/08/17 16:15 4 MG Ondansetron HCl (Zofran) 4 mg 1X ONCE 07/08/17 13:30 07/08/17 13:31 DC 07/08/17 13:36 4 MG Sodium Chloride 1,000 ml @ 3,540 mls/hr Q17M 07/08/17 13:34 07/08/17 14:04 DC Allergies Allergies Allergies Coded Allergies Type Severity Reaction Last Updated Verified cortisone Allergy Intermediate Hives 11/07/16 Yes tramadol Allergy Intermediate 11/07/16 Yes Physical Exam Physical Exam Constitutional: Well developed, well nourished, no acute distress, non-toxic appearance. HENT: Normocephalic, atraumatic, bilateral external ears normal, oropharynx dry , nose normal. Eyes: conjunctiva normal, no discharge. Neck: supple, no stridor. Cardiovascular: RRR, no murmurs, no edema. Lungs & Thorax: LCTAB, no wheezing, no respiratory distress. Abdomen: soft, moderate upper abdominal tenderness greatest in epigastrium, otherwise nontender, no rebound or guarding, no masses or pulsatile masses, nondistended. Skin: Warm, dry, no erythema, no rash. Back: No CVA tenderness. Extremities: No tenderness, no edema. Neurologic: Alert and oriented X 3, no focal deficits noted. Psychologic: Affect normal, judgement normal, mood normal. Current Patient Data Vital Signs Vital Signs Date Time Temp Pulse Resp B/P (MAP) Pulse Ox O2 Delivery O2 Flow Rate FiO2 07/08/17 14:51 16 07/08/17 14:50 96 182/110 (134) 97 Room Air 07/08/17 12:38 97.8 97.8 Lab Values Laboratory Tests Test 07/08/17 13:10 07/08/17 14:15 White Blood Count 9.0 x10^3/uL (4.0-11.0) Red Blood Count 5.13 x10^6/uL (4.30-5.70) Hemoglobin 14.9 g/dL (13.0-17.5) Hematocrit 44.5 % (39.0-53.0) Mean Corpuscular Volume 87 fL (79-100) Mean Corpuscular Hemoglobin 29 pg (25-35) Mean Corpuscular Hemoglobin Concent 34 g/dL (31-37) Red Cell Distribution Width 17.2 % (11.5-14.5) H Platelet Count 200 x10^3/uL (140-400) Neutrophils (%) (Auto) 77 % (31-73) H Lymphocytes (%) (Auto) 5 % (24-48) L Monocytes (%) (Auto) 14 % (0-9) H Eosinophils (%) (Auto) 3 % (0-3) Basophils (%) (Auto) 1 % (0-3) Neutrophils # (Auto) 6.9 x10^3uL (1.8-7.7) Lymphocytes # (Auto) 0.5 x10^3/uL (1.0-4.8) L Monocytes # (Auto) 1.2 x10^3/uL (0.0-1.1) H Eosinophils # (Auto) 0.3 x10^3/uL (0.0-0.7) Basophils # (Auto) 0.1 x10^3/uL (0.0-0.2) Sodium Level 126 mmol/L (136-145) L Potassium Level 3.8 mmol/L (3.5-5.1) Chloride Level 91 mmol/L (98-107) L Carbon Dioxide Level 24 mmol/L (21-32) Anion Gap 11 (6-14) Blood Urea Nitrogen 19 mg/dL (8-26) Creatinine 1.4 mg/dL (0.7-1.3) H Estimated GFR (Cockcroft-Gault) 56.4 BUN/Creatinine Ratio 14 (6-20) Glucose Level 86 mg/dL (70-99) Calcium Level 9.7 mg/dL (8.5-10.1) Magnesium Level 2.1 mg/dL (1.8-2.4) Total Bilirubin 0.7 mg/dL (0.2-1.0) Aspartate Amino Transferase (AST) 23 U/L (15-37) Alanine Aminotransferase (ALT) 20 U/L (16-63) Alkaline Phosphatase 80 U/L (46-116) Troponin I Quantitative < 0.017 ng/mL (0.000-0.055) Total Protein 8.1 g/dL (6.4-8.2) Albumin 2.6 g/dL (3.4-5.0) L Albumin/Globulin Ratio 0.5 (1.0-1.7) L Lipase 1164 U/L (73-393) H Lactic Acid Level 1.1 mmol/L (0.4-2.0) Laboratory Tests 07/08/17 13:10 Laboratory Tests 07/08/17 13:10 EKG EKG interpreted by wy: 1426: NSR rate 57, no acute ST/T wave changes, intraventricular block.[] Radiology/Procedures Radiology/Procedures PROCEDURE: CT ABD PELV W/ IV CONTRST ONLY CT ABD PELV W/ IV CONTRST ONLY History:Abdominal pain, vomiting Technique: After administration of intravenous contrast, CT imaging was performed of the abdomen and pelvis, multiplanar reconstruction images are submitted. Reportedly was infiltration at the IV site, remaining 30 cc contrast injected after initial infiltration. Total of 60 cc Omnipaque 300 was injected. Exposure: One or more of the following individualized dose reduction techniques were utilized for this exam: 1. Automated exposure control.2. Adjustment of the mA and/or KV according to patient size.3. Use of iterative reconstruction technique. Comparison: 05/25/2017 Findings:There has been interval development of at least small bilateral, right greater left pleural effusions. There is new mild perihepatic and perisplenic free fluid. There has been cholecystectomy as seen previously. Both kidneys enhance. There is again zcnc-tf-[id number] right hydronephrosis. There is very small right renal calculus. No ureteral calculus is identified. There is mild hazy and strandy density about the pancreas. Accurate evaluation of bowel is somewhat limited without oral contrast. There is no significant bowel dilatation or free air. There is again ventral hernia to the right of the midline near the umbilicus containing fat only, neck on the order of 2.4 cm in transverse dimension of hernia sac 3 cm, some internal mild linear and strandy density. Appendix is not clearly identified. There is some possible mild wall thickening of the descending and transverse duodenum. There are again several mesenteric lymph nodes. There are slightly more prominent nodes near the celiac axis. There are again some retroperitoneal nodes such as notable left lateral to the abdominal aorta up to 1.2 cm short axis dimension, present previously. There is again some strandy change of the pelvic fat as seen previously. There is no adrenal nodularity. Impression: 1.There are new at least small pleural effusions bilaterally greater the right. There is new mild free fluid in the abdomen. There is relative increased hazy and strandy density about the pancreas, pancreatitis not excluded. There is mild wall prominence of the distal descending as well as transverse duodenum, duodenitis not excluded. 2. There is nonspecific lymphadenopathy, slightly increased size of nodes near the celiac axis. 3. There is again [id number]-[id number] right hydronephrosis. There is a small nonobstructive right renal calculus. 4. There is again right ventral hernia near the umbilicus, some hazy density of the involved fat which could be due to incarceration. DICTATED and SIGNED BY: MELVIN GONZALEZ MD DATE: 07/08/17 1459[] Course & Med Decision Making Course & Med Decision Making Pertinent Labs and Imaging studies reviewed. (See chart for details) The patient presents with vomiting and abdominal pain. Appears ill and dehydrated. Gave IV fluids, Zofran, pain medication. Initially quite tachycardic , ordered blood cultures and lactic acid consistent with sepsis protocol but heart rate improved dramatically with IV fluid resuscitation and white blood cell count was normal. Will not repeat lactic acid or give IV fluids per sepsis protocol. Patient found to have acute pancreatitis with elevated lipase which is consistent with CT. Also possible finding of duodenitis and ventral hernia. Patient was resting comfortably after administration of pain medication. No further emesis here. Recommended admission to the hospital for further evaluation and treatment. He agrees with plan of care. We'll continue IV fluids , administer single dose of antibiotics for possible infectious source of pleural effusions although may be related to pancreatitis. Discussed with Dr. Mccray who agrees to admit to inpatient status, consults to Dr. Jernigan of oncology and Dr. Shen of GI. The patient is being admitted in guarded condition. [] Dragon Disclaimer Dragon Disclaimer This electronic medical record was generated, in whole or in part, using a voice recognition dictation system. Departure Departure Impression: Primary Impression: Acute pancreatitis Additional Impressions: Colon cancer metastasized to multiple sites Nausea & vomiting Hyponatremia Acute renal failure Disposition: ADMITTED INPATIENT Admitting Physician: Bere Mccray Condition: GUARDED Referrals: POOJA BUI MD (PCP) Problem Qualifiers MAL BAH MD Jul 08, 2017 16:35
[2017-07-08] MEDS ORDERED: MORP15TA3 PO (17:01)
[2017-07-08] MEDS ORDERED: DEXA2TAB PO (17:05)
[2017-07-08] MEDS ORDERED: AMLO10TA2 PO (17:05)
[2017-07-08] MEDS ORDERED: CYCL5TAB PO (17:05)
[2017-07-08 17:39] VITALS: BP 170/119
[2017-07-08 19:00] VITALS: BP 173/140
--- NOTE | 2017-07-08 19:48 | HP ---
ADMIT DATE: 07/08/2017 CHIEF COMPLAINT: Hematemesis. HISTORY OF PRESENT ILLNESS: The patient is a pleasant 37-year-old male with stage 4 adenocarcinoma of the colon with mets to the spinal cord. Basically, he presents with hematemesis and abdominal pain, has been occurring off and on for 5 days. He tried increasing his home meds at home, but that was not working. He is also constipated with his last bowel movement 4 days ago. It should be noted that the patient has been undergoing radiation for metastatic colon cancer. He has also had a resection. I have discussed the case with the ER physician. We are going to admit the patient and consult GI. The patient does have pancreatitis as well with a lipase of 1164. PAST MEDICAL HISTORY: Stage 4 adenocarcinoma of the colon with mets, colectomy, cholecystectomy, ankle surgery. ALLERGIES: CORTISOL AND ULTRAM. FAMILY HISTORY: Coronary artery disease. SOCIAL HISTORY: Does not drink, smoke or take drugs. MEDICATIONS: Reviewed. REVIEW OF SYSTEMS: GENERAL: No history of weight change, weakness or fevers. SKIN: No bruising, hair changes or rashes. EYES: No blurred, double or loss of vision. NOSE AND THROAT: No history of nosebleeds, hoarseness or sore throat. HEART: No history of palpitations, chest pain or shortness of breath on exertion. LUNGS: Denies cough, hemoptysis, wheezing or shortness of breath. GASTROINTESTINAL: He complains of hematemesis. GENITOURINARY: No history of frequency, urgency, hesitancy or nocturia. NEUROLOGIC: Denies history of numbness, tingling, tremor or weakness. PSYCHIATRIC: No history of panic, anxiety or depression. ENDOCRINE: No history of heat or cold intolerance, polyuria or polydipsia. EXTREMITIES: Denies muscle weakness, joint pain, pain on walking or stiffness. PHYSICAL EXAMINATION: VITAL SIGNS: Temperature afebrile, pulse 90, respirations 24, blood pressure 170/119. GENERAL: He is sleeping, does not really want to talk much. HEART: Normal S1, S2. LUNGS: Clear. ABDOMEN: Soft. Decreased bowel sounds. EXTREMITIES: No edema. SKIN: No rashes. ENDOCRINE: No thyromegaly. LYMPHATICS: No cervical nodes. HEMATOPOIETIC: No bruising. LABORATORY DATA: Electrolytes: Sodium 126, potassium 3.8, chloride 91, bicarbonate 24, BUN 19, creatinine 1.4, glucose 86. White count 9, hemoglobin 15, platelets 200. ASSESSMENT AND PLAN: Gastrointestinal bleed, pancreatitis in a middle-aged male who has metastatic colon cancer. The patient is being admitted. We will consult Gastroenterology. IV proton pump inhibitors. Gentle IV fluids. Continue home medicines, p.r.n. antiemetics, p.r.n. narcotics. JEN TALAVERA DO DR: MEGHAN/carl JOB#: [id number] / [id number]
[2017-07-08 20:00] LABS: BILIRUBIN,URINE NEGATIVE (NEG); GLUCOSE,URINE NEGATIVE (NEG); NITRITE,URINE NEGATIVE (NEG); PROTEIN,URINE 100 mg/dL (NEG-TRACE); UROBILINOGEN,URINE 0.2 mg/dL (0.2 mg/dL)
[2017-07-08] MEDS ORDERED: LABETALOL 20 MG/4 ML DISP.SYRIN. IVP PRN (20:00)
[2017-07-08 20:09] LABS: BACTERIA,URINE 0 /HPF (0-FEW); SQUAMOUS EPITHELIAL CELL,UR FEW /LPF; WBC,URINE OCC /HPF (0-4)
[2017-07-08] MEDS: MORPHINE SULFATE 4 MG/ML DISP.SYRIN. IV PRN ×2 (20:37→23:21)
[2017-07-08 23:00] VITALS: BP 175/114
[2017-07-09] VITALS (8 sets, daily range): BP systolic 132–171; BP diastolic 80–132
[2017-07-09] MEDS: MORPHINE SULFATE 4 MG/ML DISP.SYRIN. IV PRN ×4 (01:55→09:48)
[2017-07-09] MEDS: LABETALOL 20 MG/4 ML DISP.SYRIN. IVP PRN (01:56)
[2017-07-09] MEDS: IV NORMAL SALINE 1000ML BAG 1,000 ML IV SCH ×3 (01:56→09:54)
[2017-07-09 05:12] LABS: BASO # 0.1 x10^3/uL (0.0-0.2); BASO % 1 % (0-3); EOS % 2 % (0-3); HEMATOCRIT 39.9 % (39.0-53.0); HEMOGLOBIN 13.2 g/dL (13.0-17.5); LYMPH # 0.4 x10^3/uL (1.0-4.8); LYMPH % 5 % (24-48); MEAN CORPUSCULAR HEMOGLOBIN 29 pg (25-35); MEAN CORPUSCULAR HGB CONC 33 g/dL (31-37); MEAN CORPUSCULAR VOLUME 88 fL (79-100); MONO % 15 % (0-9); NEUT % 77 % (31-73); PLATELET COUNT 179 x10^3/uL (140-400); RED BLOOD COUNT 4.55 x10^6/uL (4.30-5.70); RED CELL DISTRIBUTION WIDTH 17.1 % (11.5-14.5); WHITE BLOOD COUNT 8.3 x10^3/uL (4.0-11.0)
[2017-07-09 05:46] LABS: CALCIUM 8.8 mg/dL (8.5-10.1); CREATININE 1.3 mg/dL (0.7-1.3); GFR 61.5; POTASSIUM 3.8 mmol/L (3.5-5.1)
[2017-07-09] MEDS: ENALAPRILAT 2.5 MG/2 ML VIAL. IV PRN ×2 (05:48→20:07)
[2017-07-09] MEDS ORDERED: ONDANSETRON PF 4 MG/2 ML VIAL. IV PRN (07:30)
--- NOTE | 2017-07-09 08:25 | RAD ---
Chest x-ray Indication: Pleural effusion on CT. Technique: Portable semiupright AP chest x-ray Comparison: CT abdomen pelvis from 07/08/2017 Findings: Right chest wall central venous catheter is noted with its tip in the SVC. Heart is mildly enlarged in size. Lungs are clear. No blunting of the costophrenic angles. No pneumothorax. Visualized bony thorax within normal limits. Impression: No acute cardiopulmonary process. Previously visualized moderate right and small left pleural effusion are not visualized on radiographs. But there are moderate right and small left pleural effusion on the most recent CT from the same day.
--- NOTE | 2017-07-09 08:35 | PDOC ---
PROGRESS NOTES Objective Objective Vital Signs Date Time Temp Pulse Resp B/P (MAP) Pulse Ox O2 Delivery O2 Flow Rate FiO2 07/09/17 06:52 16 94 Room Air 07/09/17 05:48 102 171/116 07/09/17 03:00 98.3 98.3 Intake and Output 07/09/17 07:00 Intake Total 240 ml Balance 240 ml Intake Oral 240 ml # Voids 2 Assessment Assessment Problems Medical Problems: (1) Acute pancreatitis Status: Acute (2) Acute renal failure Status: Acute (3) Colon cancer metastasized to multiple sites Status: Acute (4) Hyponatremia Status: Acute (5) Nausea & vomiting Status: Acute DATE OF CONSULTATION: 07/09/2017 REQUESTING PHYSICIAN: Dr. Mccray. 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 HISTORY OF PRESENT ILLNESS: The patient is a 37-year-old gentleman who was noted to have a left supraclavicular lymphadenopathy and he underwent a biopsy on 08/30/2016, which revealed moderate to poorly differentiated adenocarcinoma. CT scan of the chest, abdomen and pelvis on 08/30/2016 revealed mediastinal adenopathy and abdominal lymphadenopathy. He was evaluated by Dr. Lama and he underwent sigmoid colon resection on 10/02/2016. Colonoscopy on 09/22/2016 revealed sigmoid primary malignancy. Sigmoid colon resection revealed metastatic adenocarcinoma in multiple lymph nodes. He was started on palliative chemotherapy with FOLFIRI and Avastin on 11/01/2016. He received 16 cycles of treatment; however, his CEA level has been getting progressively worse. He developed back pain. MRI of the lumbar spine on 06/01/2017 revealed enhancement suggestive of arachnoiditis versus leptomeningeal disease. He underwent lumbar puncture on 06/07/2017, which revealed metastatic adenocarcinoma of the colon origin. He is undergoing palliative radiation therapy to the lumbar spine. He has developed worsening neck pain and hence he was admitted to [facility]. MRI of the thoracic and cervical spine also reveals evidence of leptomeningeal disease. He was started on palliative radiation. He presents with hematemesis and abdominal pain, has been occurring off and on for 5 days. He tried increasing his home meds at home, but that was not working. He is also constipated. His lipase was elevated 1164 on 07/08/17 and he was admitted for pancreatitis. PAST MEDICAL HISTORY: Cholecystitis, back pain, ankle surgery and back surgery. SOCIAL HISTORY: He has a history of cigarette smoking. FAMILY HISTORY: Positive for prostate cancer. REVIEW OF SYSTEMS: A 12-point review of system was performed. Pertinent positives are mentioned in the history of present illness. Rest of the system review is negative. PHYSICAL EXAMINATION: GENERAL APPEARANCE: The patient is a 37-year-old gentleman who is in no acute cardiorespiratory distress. VITAL SIGNS: reviewed. HEAD: Atraumatic and normocephalic. EYES: No icterus. NECK: Supple. CHEST: Bilaterally symmetrical. HEART: S1 and S2 normal. ABDOMEN: Soft and nontender. CENTRAL NERVOUS SYSTEM: No focal deficits. LYMPHATICS: No lymphadenopathy. SKIN: No rashes. PSYCHOLOGIC: Mood and affect are appropriate. MUSCULOSKELETAL: No joint effusions. LABORATORY DATA: His lipase was elevated 1164 on 07/08/17. IMPRESSION AND PLAN: 1. Stage 4 colon cancer with evidence of metastatic lymphadenopathy in the cervical, mediastinal and intraabdominal lymph nodes, which have gotten better. However, there is evidence of slight progression in the abdominal lymph nodes in the most recent CAT scan. He underwent a lumbar puncture on 06/07/2017, which revealed metastatic adenocarcinoma indicating leptomeningeal disease. I would continue supportive care at this time while he gets radiation therapy. I will consult Dr Suarez for continuation of radiation. 2. 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 He is undergoing radiation therapy. 3. Acute pancreatitis - appreciate management per Dr Mccray. PABLO MCCABE MD Comment Review of Relevant I have reviewed the following items gloria (where applicable) has been applied. Labs Laboratory Tests Test 07/08/17 13:10 07/08/17 14:15 07/08/17 19:00 07/09/17 04:10 White Blood Count 9.0 x10^3/uL (4.0-11.0) 8.3 x10^3/uL (4.0-11.0) Red Blood Count 5.13 x10^6/uL (4.30-5.70) 4.55 x10^6/uL (4.30-5.70) Hemoglobin 14.9 g/dL (13.0-17.5) 13.2 g/dL (13.0-17.5) Hematocrit 44.5 % (39.0-53.0) 39.9 % (39.0-53.0) Mean Corpuscular Volume 87 fL (79-100) 88 fL (79-100) Mean Corpuscular Hemoglobin 29 pg (25-35) 29 pg (25-35) Mean Corpuscular Hemoglobin Concent 34 g/dL (31-37) 33 g/dL (31-37) Red Cell Distribution Width 17.2 % (11.5-14.5) 17.1 % (11.5-14.5) Platelet Count 200 x10^3/uL (140-400) 179 x10^3/uL (140-400) Neutrophils (%) (Auto) 77 % (31-73) 77 % (31-73) Lymphocytes (%) (Auto) 5 % (24-48) 5 % (24-48) Monocytes (%) (Auto) 14 % (0-9) 15 % (0-9) Eosinophils (%) (Auto) 3 % (0-3) 2 % (0-3) Basophils (%) (Auto) 1 % (0-3) 1 % (0-3) Neutrophils # (Auto) 6.9 x10^3uL (1.8-7.7) 6.3 x10^3uL (1.8-7.7) Lymphocytes # (Auto) 0.5 x10^3/uL (1.0-4.8) 0.4 x10^3/uL (1.0-4.8) Monocytes # (Auto) 1.2 x10^3/uL (0.0-1.1) 1.2 x10^3/uL (0.0-1.1) Eosinophils # (Auto) 0.3 x10^3/uL (0.0-0.7) 0.2 x10^3/uL (0.0-0.7) Basophils # (Auto) 0.1 x10^3/uL (0.0-0.2) 0.1 x10^3/uL (0.0-0.2) Sodium Level 126 mmol/L (136-145) 128 mmol/L (136-145) Potassium Level 3.8 mmol/L (3.5-5.1) 3.8 mmol/L (3.5-5.1) Chloride Level 91 mmol/L (98-107) 96 mmol/L (98-107) Carbon Dioxide Level 24 mmol/L (21-32) 23 mmol/L (21-32) Anion Gap 11 (6-14) 9 (6-14) Blood Urea Nitrogen 19 mg/dL (8-26) 15 mg/dL (8-26) Creatinine 1.4 mg/dL (0.7-1.3) 1.3 mg/dL (0.7-1.3) Estimated GFR (Cockcroft-Gault) 56.4 61.5 BUN/Creatinine Ratio 14 (6-20) Glucose Level 86 mg/dL (70-99) 79 mg/dL (70-99) Calcium Level 9.7 mg/dL (8.5-10.1) 8.8 mg/dL (8.5-10.1) Magnesium Level 2.1 mg/dL (1.8-2.4) Total Bilirubin 0.7 mg/dL (0.2-1.0) Aspartate Amino Transf (AST/SGOT) 23 U/L (15-37) Alanine Aminotransferase (ALT/SGPT) 20 U/L (16-63) Alkaline Phosphatase 80 U/L (46-116) Troponin I Quantitative < 0.017 ng/mL (0.000-0.055) Total Protein 8.1 g/dL (6.4-8.2) Albumin 2.6 g/dL (3.4-5.0) Albumin/Globulin Ratio 0.5 (1.0-1.7) Lipase 1164 U/L (73-393) Lactic Acid Level 1.1 mmol/L (0.4-2.0) Urine Collection Type Unknown Urine Color Yellow Urine Clarity Clear Urine pH 6.0 Urine Specific [place] 1.025 Urine Protein 100 mg/dL (NEG-TRACE) Urine Glucose (UA) Negative mg/dL (NEG) Urine Ketones (Stick) Trace mg/dL (NEG) Urine Blood Small (NEG) Urine Nitrite Negative (NEG) Urine Bilirubin Negative (NEG) Urine Urobilinogen Dipstick 0.2 mg/dL (0.2 mg/dL) Urine Leukocyte Esterase Negative (NEG) Urine RBC 1-2 /HPF (0-2) Urine WBC Occ /HPF (0-4) Urine Squamous Epithelial Cells Few /LPF Urine Bacteria 0 /HPF (0-FEW) Urine Hyaline Casts Moderate /HPF Urine Mucus Slight /LPF Laboratory Tests Test 07/08/17 13:10 07/08/17 14:15 07/08/17 19:00 07/09/17 04:10 White Blood Count 9.0 x10^3/uL (4.0-11.0) 8.3 x10^3/uL (4.0-11.0) Red Blood Count 5.13 x10^6/uL (4.30-5.70) 4.55 x10^6/uL (4.30-5.70) Hemoglobin 14.9 g/dL (13.0-17.5) 13.2 g/dL (13.0-17.5) Hematocrit 44.5 % (39.0-53.0) 39.9 % (39.0-53.0) Mean Corpuscular Volume 87 fL (79-100) 88 fL (79-100) Mean Corpuscular Hemoglobin 29 pg (25-35) 29 pg (25-35) Mean Corpuscular Hemoglobin Concent 34 g/dL (31-37) 33 g/dL (31-37) Red Cell Distribution Width 17.2 % (11.5-14.5) 17.1 % (11.5-14.5) Platelet Count 200 x10^3/uL (140-400) 179 x10^3/uL (140-400) Neutrophils (%) (Auto) 77 % (31-73) 77 % (31-73) Lymphocytes (%) (Auto) 5 % (24-48) 5 % (24-48) Monocytes (%) (Auto) 14 % (0-9) 15 % (0-9) Eosinophils (%) (Auto) 3 % (0-3) 2 % (0-3) Basophils (%) (Auto) 1 % (0-3) 1 % (0-3) Neutrophils # (Auto) 6.9 x10^3uL (1.8-7.7) 6.3 x10^3uL (1.8-7.7) Lymphocytes # (Auto) 0.5 x10^3/uL (1.0-4.8) 0.4 x10^3/uL (1.0-4.8) Monocytes # (Auto) 1.2 x10^3/uL (0.0-1.1) 1.2 x10^3/uL (0.0-1.1) Eosinophils # (Auto) 0.3 x10^3/uL (0.0-0.7) 0.2 x10^3/uL (0.0-0.7) Basophils # (Auto) 0.1 x10^3/uL (0.0-0.2) 0.1 x10^3/uL (0.0-0.2) Sodium Level 126 mmol/L (136-145) 128 mmol/L (136-145) Potassium Level 3.8 mmol/L (3.5-5.1) 3.8 mmol/L (3.5-5.1) Chloride Level 91 mmol/L (98-107) 96 mmol/L (98-107) Carbon Dioxide Level 24 mmol/L (21-32) 23 mmol/L (21-32) Anion Gap 11 (6-14) 9 (6-14) Blood Urea Nitrogen 19 mg/dL (8-26) 15 mg/dL (8-26) Creatinine 1.4 mg/dL (0.7-1.3) 1.3 mg/dL (0.7-1.3) Estimated GFR (Cockcroft-Gault) 56.4 61.5 BUN/Creatinine Ratio 14 (6-20) Glucose Level 86 mg/dL (70-99) 79 mg/dL (70-99) Calcium Level 9.7 mg/dL (8.5-10.1) 8.8 mg/dL (8.5-10.1) Magnesium Level 2.1 mg/dL (1.8-2.4) Total Bilirubin 0.7 mg/dL (0.2-1.0) Aspartate Amino Transf (AST/SGOT) 23 U/L (15-37) Alanine Aminotransferase (ALT/SGPT) 20 U/L (16-63) Alkaline Phosphatase 80 U/L (46-116) Troponin I Quantitative < 0.017 ng/mL (0.000-0.055) Total Protein 8.1 g/dL (6.4-8.2) Albumin 2.6 g/dL (3.4-5.0) Albumin/Globulin Ratio 0.5 (1.0-1.7) Lipase 1164 U/L (73-393) Lactic Acid Level 1.1 mmol/L (0.4-2.0) Urine Collection Type Unknown Urine Color Yellow Urine Clarity Clear Urine pH 6.0 Urine Specific [place] 1.025 Urine Protein 100 mg/dL (NEG-TRACE) Urine Glucose (UA) Negative mg/dL (NEG) Urine Ketones (Stick) Trace mg/dL (NEG) Urine Blood Small (NEG) Urine Nitrite Negative (NEG) Urine Bilirubin Negative (NEG) Urine Urobilinogen Dipstick 0.2 mg/dL (0.2 mg/dL) Urine Leukocyte Esterase Negative (NEG) Urine RBC 1-2 /HPF (0-2) Urine WBC Occ /HPF (0-4) Urine Squamous Epithelial Cells Few /LPF Urine Bacteria 0 /HPF (0-FEW) Urine Hyaline Casts Moderate /HPF Urine Mucus Slight /LPF Medications Current Medications Sodium Chloride 1,000 ml @ 1,000 mls/hr 1X ONCE IV Last administered on 07/08 13:36; Start 07/08/17 at 13:30; Stop 07/08/17 at 14:29; Status DC Ondansetron HCl (Zofran) 4 mg 1X ONCE IV Last administered on 07/08/17 13:36 ; Start 07/08/17 at 13:30; Stop 07/08/17 at 13:31; Status DC Morphine Sulfate 4 mg PRN Q15MIN PRN IV/SQ PAIN GREATER THAN 3/10 Last administered on 07/08/17 16:15; Start 07/08/17 at 13:30; Stop 07/08/17 at 19 :53; Status DC Sodium Chloride 1,000 ml @ 3,540 mls/hr Q17M IV ; Start 07/08/17 at 13:34; Stop 07/08/17 at 14:04; Status DC Iohexol (Omnipaque 300 Mg/ml) 60 ml 1X ONCE IV Last administered on 14:29; Start 07/08/17 at 14:30; Stop 07/08/17 at 14:31; Status DC Info (Do NOT chart on this entry -- for MONITORING) 1 each PRN DAILY PRN MC SEE COMMENTS; Start 07/08/17 at 14:30; Stop 07/10/17 at 14:29 Ondansetron HCl (Zofran) 4 mg PRN Q8HRS PRN IV NAUSEA/VOMITING Last administered on 07/09/17 01:53; Start 07/08/17 at 15:45; Stop 07/09/17 at 07 :26; Status DC Morphine Sulfate 4 mg PRN Q2HR PRN IV PAIN Last administered on 07/09/17 06: 52; Start 07/08/17 at 15:45; Stop 07/09/17 at 15:44 Sodium Chloride 1,000 ml @ 125 mls/hr Q8H IV Last administered on 07/09/17 01:56; Start 07/08/17 at 16:00; Stop 07/09/17 at 15:59 Piperacillin Sod/ Tazobactam Sod 4.5 gm/Dextrose 100 ml @ 200 mls/hr 1X ONCE IV ; Start 07/08/17 at 15:45; Stop 07/08/17 at 16:14; Status UNV Levofloxacin/ Dextrose 150 ml @ 100 mls/hr 1X ONCE IV Last administered on 16:20; Start 07/08/17 at 15:45; Stop 07/08/17 at 17:14; Status DC Vancomycin HCl 250 ml @ 250 mls/hr 1X ONCE IV ; Start 07/08/17 at 15:45; Stop 07/08/17 at 16:44; Status UNV Vancomycin HCl 2 gm/Dextrose/ Sodium Chloride 500 ml @ 250 mls/hr 1X ONCE IV Last administered on 07/08/17 18:16; Start 07/08/17 at 16:00; Stop 07/08/17 at 17:59; Status DC Piperacillin Sod/ Tazobactam Sod (Zosyn) 4.5 gm 1X ONCE IVP Last administered on 07/08/17 16:17; Start 07/08/17 at 16:00; Stop 07/08/17 at 16:01; Status DC Labetalol HCl (Normodyne) 20 mg PRN Q6HRS PRN IVP HYPERTENSION, SEE COMMENTS Last administered on 07/08/17 20:37; Start 07/08/17 at 20:00; Stop 07/09/17 at 01:23; Status DC Labetalol HCl (Normodyne) 20 mg PRN Q4HRS PRN IVP HYPERTENSION, SEE COMMENTS Last administered on 07/09/17 01:56; Start 07/09/17 at 01:30 Enalaprilat (Vasotec) 2.5 mg PRN Q6HRS PRN IV ELEVATED BP, SEE COMMENTS Last administered on 07/09/17 05:48; Start 07/09/17 at 05:00 Ondansetron HCl (Zofran) 4 mg PRN Q6HRS PRN IV NAUSEA/VOMITING; Start at 07:30; Stop 07/10/17 at 07:29 Active Scripts Active Oxycontin (Oxycodone HCl) 20 Mg Tab.er.12h 20 Mg PO TID Reported Dexamethasone 2 Mg Tablet 2 Mg PO [id number] Cyclobenzaprine Hcl 5 Mg Tablet 5 Mg PO TID Amlodipine Besylate 10 Mg Tablet 10 Mg PO DAILY Morphine Sulfate Er (Morphine Sulfate) 15 Mg Tablet.er 15 Mg PO TID Oxycodone Hcl 10 Mg Tablet 10 Mg PO PO Q 2-4HRS PRN PAIN Alprazolam 0.5 Mg Tablet 1 Tab PO BID PRN Zofran Odt (Ondansetron) 8 Mg Tab.rapdis 1 Tab PO Q8HRS Prilosec Otc (Omeprazole Magnesium) 20 Mg Tablet.dr 20 Mg PO DAILY Stool Softener Tablet (Sennosides/Docusate Sodium) 1 Each Tablet 1 Each PO DAILY Lorazepam 0.5 Mg Tablet 0.5 Mg PO PRN BID PRN Vitals/I & O Vital Sign - Last 24 Hours 07/08/17 07/08/17 07/08/17 07/08/17 12:38 13:14 13:36 13:47 Temp 97.8 97.8 Pulse 116 112 80 Resp 18 22 17 B/P (MAP) 190/103 (132) 201/132 (155) 177/108 (131) Pulse Ox 99 96 94 O2 Delivery Room Air Room Air Room Air Room Air 07/08/17 07/08/17 07/08/17 07/08/17 14:50 14:51 16:15 17:39 Temp 98.0 98.0 Pulse 96 114 Resp 24 16 14 18 B/P (MAP) 182/110 (134) 170/119 (136) Pulse Ox 97 97 O2 Delivery Room Air Room Air 07/08/17 07/08/17 07/08/17 07/08/17 17:55 19:00 20:00 20:37 Temp 98.4 98.4 Pulse 120 Resp 18 16 B/P (MAP) 173/140 (151) Pulse Ox 96 96 O2 Delivery Room Air Room Air Room Air Room Air 07/08/17 07/08/17 07/08/17 07/09/17 20:37 23:00 23:21 01:55 Temp 98.1 98.1 Pulse 120 104 Resp 18 16 16 B/P (MAP) 173/140 175/114 (134) Pulse Ox 92 96 96 O2 Delivery Room Air Room Air Room Air 07/09/17 07/09/17 07/09/17 07/09/17 01:56 03:00 04:53 05:48 Temp 98.3 98.3 Pulse 104 102 102 Resp 18 22 B/P (MAP) 175/114 171/116 (134) 171/116 Pulse Ox 94 94 O2 Delivery Room Air Room Air 07/09/17 07/09/17 05:51 06:52 Resp 16 16 Pulse Ox 94 94 O2 Delivery Room Air Room Air Intake and Output 07/08/17 07/08/17 07/09/17 15:00 23:00 07:00 Intake Total 240 ml 0 ml Balance 240 ml 0 ml PABLO MCCABE MD Jul 09, 2017 08:35
--- NOTE | 2017-07-09 09:02 | PDOC ---
PROGRESS NOTES Chief Complaint Chief Complaint 1. Acute pancreatitis 2. 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 Obesity 5. Narc tolerant History of Present Illness History of Present Illness Admitted for pancreatitis this time, first episode NO fevers, no emesis no diarrhea Lipase 1166, some stranding miguelito pancreas areas s/p good distant pasy NOn etoh drinker Eating ice chips BAck pain same, undergoing rad onc tx [place] PLAN: COnsult rad onc - ongoing radiation tx NPO IVF Recheck lipase tmr Dw him Vitals Vitals Vital Signs Date Time Temp Pulse Resp B/P (MAP) Pulse Ox O2 Delivery O2 Flow Rate FiO2 07/09/17 07:00 98.0 101 18 141/111 (121) 96 Room Air 98.0 Physical Exam General: Alert, Oriented X3, Cooperative Heart: Regular rate, Normal S1, Normal S2 Lungs: Clear Abdomen: Soft, Other (non tender,no guarding) Extremities: No clubbing, No cyanosis Skin: No rashes, No breakdown Labs LABS Laboratory Tests Test 07/08/17 13:10 07/08/17 14:15 07/08/17 19:00 07/09/17 04:10 White Blood Count 9.0 x10^3/uL (4.0-11.0) 8.3 x10^3/uL (4.0-11.0) Red Blood Count 5.13 x10^6/uL (4.30-5.70) 4.55 x10^6/uL (4.30-5.70) Hemoglobin 14.9 g/dL (13.0-17.5) 13.2 g/dL (13.0-17.5) Hematocrit 44.5 % (39.0-53.0) 39.9 % (39.0-53.0) Mean Corpuscular Volume 87 fL (79-100) 88 fL (79-100) Mean Corpuscular Hemoglobin 29 pg (25-35) 29 pg (25-35) Mean Corpuscular Hemoglobin Concent 34 g/dL (31-37) 33 g/dL (31-37) Red Cell Distribution Width 17.2 % (11.5-14.5) 17.1 % (11.5-14.5) Platelet Count 200 x10^3/uL (140-400) 179 x10^3/uL (140-400) Neutrophils (%) (Auto) 77 % (31-73) 77 % (31-73) Lymphocytes (%) (Auto) 5 % (24-48) 5 % (24-48) Monocytes (%) (Auto) 14 % (0-9) 15 % (0-9) Eosinophils (%) (Auto) 3 % (0-3) 2 % (0-3) Basophils (%) (Auto) 1 % (0-3) 1 % (0-3) Neutrophils # (Auto) 6.9 x10^3uL (1.8-7.7) 6.3 x10^3uL (1.8-7.7) Lymphocytes # (Auto) 0.5 x10^3/uL (1.0-4.8) 0.4 x10^3/uL (1.0-4.8) Monocytes # (Auto) 1.2 x10^3/uL (0.0-1.1) 1.2 x10^3/uL (0.0-1.1) Eosinophils # (Auto) 0.3 x10^3/uL (0.0-0.7) 0.2 x10^3/uL (0.0-0.7) Basophils # (Auto) 0.1 x10^3/uL (0.0-0.2) 0.1 x10^3/uL (0.0-0.2) Sodium Level 126 mmol/L (136-145) 128 mmol/L (136-145) Potassium Level 3.8 mmol/L (3.5-5.1) 3.8 mmol/L (3.5-5.1) Chloride Level 91 mmol/L (98-107) 96 mmol/L (98-107) Carbon Dioxide Level 24 mmol/L (21-32) 23 mmol/L (21-32) Anion Gap 11 (6-14) 9 (6-14) Blood Urea Nitrogen 19 mg/dL (8-26) 15 mg/dL (8-26) Creatinine 1.4 mg/dL (0.7-1.3) 1.3 mg/dL (0.7-1.3) Estimated GFR (Cockcroft-Gault) 56.4 61.5 BUN/Creatinine Ratio 14 (6-20) Glucose Level 86 mg/dL (70-99) 79 mg/dL (70-99) Calcium Level 9.7 mg/dL (8.5-10.1) 8.8 mg/dL (8.5-10.1) Magnesium Level 2.1 mg/dL (1.8-2.4) Total Bilirubin 0.7 mg/dL (0.2-1.0) Aspartate Amino Transf (AST/SGOT) 23 U/L (15-37) Alanine Aminotransferase (ALT/SGPT) 20 U/L (16-63) Alkaline Phosphatase 80 U/L (46-116) Troponin I Quantitative < 0.017 ng/mL (0.000-0.055) Total Protein 8.1 g/dL (6.4-8.2) Albumin 2.6 g/dL (3.4-5.0) Albumin/Globulin Ratio 0.5 (1.0-1.7) Lipase 1164 U/L (73-393) Lactic Acid Level 1.1 mmol/L (0.4-2.0) Urine Collection Type Unknown Urine Color Yellow Urine Clarity Clear Urine pH 6.0 Urine Specific [place] 1.025 Urine Protein 100 mg/dL (NEG-TRACE) Urine Glucose (UA) Negative mg/dL (NEG) Urine Ketones (Stick) Trace mg/dL (NEG) Urine Blood Small (NEG) Urine Nitrite Negative (NEG) Urine Bilirubin Negative (NEG) Urine Urobilinogen Dipstick 0.2 mg/dL (0.2 mg/dL) Urine Leukocyte Esterase Negative (NEG) Urine RBC 1-2 /HPF (0-2) Urine WBC Occ /HPF (0-4) Urine Squamous Epithelial Cells Few /LPF Urine Bacteria 0 /HPF (0-FEW) Urine Hyaline Casts Moderate /HPF Urine Mucus Slight /LPF Review of Systems Review of Systems back pain, no cp, soa, emesis, diarrhea Assessment and Plan Assessmemt and Plan Problems Medical Problems: (1) Acute pancreatitis Status: Acute (2) Acute renal failure Status: Acute (3) Colon cancer metastasized to multiple sites Status: Acute (4) Hyponatremia Status: Acute (5) Nausea & vomiting Status: Acute Problems: Comment Review of Relevant I have reviewed the following items gloria (where applicable) has been applied. Labs Laboratory Tests Test 07/08/17 13:10 07/08/17 14:15 07/08/17 19:00 07/09/17 04:10 White Blood Count 9.0 x10^3/uL (4.0-11.0) 8.3 x10^3/uL (4.0-11.0) Red Blood Count 5.13 x10^6/uL (4.30-5.70) 4.55 x10^6/uL (4.30-5.70) Hemoglobin 14.9 g/dL (13.0-17.5) 13.2 g/dL (13.0-17.5) Hematocrit 44.5 % (39.0-53.0) 39.9 % (39.0-53.0) Mean Corpuscular Volume 87 fL (79-100) 88 fL (79-100) Mean Corpuscular Hemoglobin 29 pg (25-35) 29 pg (25-35) Mean Corpuscular Hemoglobin Concent 34 g/dL (31-37) 33 g/dL (31-37) Red Cell Distribution Width 17.2 % (11.5-14.5) 17.1 % (11.5-14.5) Platelet Count 200 x10^3/uL (140-400) 179 x10^3/uL (140-400) Neutrophils (%) (Auto) 77 % (31-73) 77 % (31-73) Lymphocytes (%) (Auto) 5 % (24-48) 5 % (24-48) Monocytes (%) (Auto) 14 % (0-9) 15 % (0-9) Eosinophils (%) (Auto) 3 % (0-3) 2 % (0-3) Basophils (%) (Auto) 1 % (0-3) 1 % (0-3) Neutrophils # (Auto) 6.9 x10^3uL (1.8-7.7) 6.3 x10^3uL (1.8-7.7) Lymphocytes # (Auto) 0.5 x10^3/uL (1.0-4.8) 0.4 x10^3/uL (1.0-4.8) Monocytes # (Auto) 1.2 x10^3/uL (0.0-1.1) 1.2 x10^3/uL (0.0-1.1) Eosinophils # (Auto) 0.3 x10^3/uL (0.0-0.7) 0.2 x10^3/uL (0.0-0.7) Basophils # (Auto) 0.1 x10^3/uL (0.0-0.2) 0.1 x10^3/uL (0.0-0.2) Sodium Level 126 mmol/L (136-145) 128 mmol/L (136-145) Potassium Level 3.8 mmol/L (3.5-5.1) 3.8 mmol/L (3.5-5.1) Chloride Level 91 mmol/L (98-107) 96 mmol/L (98-107) Carbon Dioxide Level 24 mmol/L (21-32) 23 mmol/L (21-32) Anion Gap 11 (6-14) 9 (6-14) Blood Urea Nitrogen 19 mg/dL (8-26) 15 mg/dL (8-26) Creatinine 1.4 mg/dL (0.7-1.3) 1.3 mg/dL (0.7-1.3) Estimated GFR (Cockcroft-Gault) 56.4 61.5 BUN/Creatinine Ratio 14 (6-20) Glucose Level 86 mg/dL (70-99) 79 mg/dL (70-99) Calcium Level 9.7 mg/dL (8.5-10.1) 8.8 mg/dL (8.5-10.1) Magnesium Level 2.1 mg/dL (1.8-2.4) Total Bilirubin 0.7 mg/dL (0.2-1.0) Aspartate Amino Transf (AST/SGOT) 23 U/L (15-37) Alanine Aminotransferase (ALT/SGPT) 20 U/L (16-63) Alkaline Phosphatase 80 U/L (46-116) Troponin I Quantitative < 0.017 ng/mL (0.000-0.055) Total Protein 8.1 g/dL (6.4-8.2) Albumin 2.6 g/dL (3.4-5.0) Albumin/Globulin Ratio 0.5 (1.0-1.7) Lipase 1164 U/L (73-393) Lactic Acid Level 1.1 mmol/L (0.4-2.0) Urine Collection Type Unknown Urine Color Yellow Urine Clarity Clear Urine pH 6.0 Urine Specific [place] 1.025 Urine Protein 100 mg/dL (NEG-TRACE) Urine Glucose (UA) Negative mg/dL (NEG) Urine Ketones (Stick) Trace mg/dL (NEG) Urine Blood Small (NEG) Urine Nitrite Negative (NEG) Urine Bilirubin Negative (NEG) Urine Urobilinogen Dipstick 0.2 mg/dL (0.2 mg/dL) Urine Leukocyte Esterase Negative (NEG) Urine RBC 1-2 /HPF (0-2) Urine WBC Occ /HPF (0-4) Urine Squamous Epithelial Cells Few /LPF Urine Bacteria 0 /HPF (0-FEW) Urine Hyaline Casts Moderate /HPF Urine Mucus Slight /LPF Laboratory Tests Test 07/08/17 13:10 07/08/17 14:15 07/08/17 19:00 07/09/17 04:10 White Blood Count 9.0 x10^3/uL (4.0-11.0) 8.3 x10^3/uL (4.0-11.0) Red Blood Count 5.13 x10^6/uL (4.30-5.70) 4.55 x10^6/uL (4.30-5.70) Hemoglobin 14.9 g/dL (13.0-17.5) 13.2 g/dL (13.0-17.5) Hematocrit 44.5 % (39.0-53.0) 39.9 % (39.0-53.0) Mean Corpuscular Volume 87 fL (79-100) 88 fL (79-100) Mean Corpuscular Hemoglobin 29 pg (25-35) 29 pg (25-35) Mean Corpuscular Hemoglobin Concent 34 g/dL (31-37) 33 g/dL (31-37) Red Cell Distribution Width 17.2 % (11.5-14.5) 17.1 % (11.5-14.5) Platelet Count 200 x10^3/uL (140-400) 179 x10^3/uL (140-400) Neutrophils (%) (Auto) 77 % (31-73) 77 % (31-73) Lymphocytes (%) (Auto) 5 % (24-48) 5 % (24-48) Monocytes (%) (Auto) 14 % (0-9) 15 % (0-9) Eosinophils (%) (Auto) 3 % (0-3) 2 % (0-3) Basophils (%) (Auto) 1 % (0-3) 1 % (0-3) Neutrophils # (Auto) 6.9 x10^3uL (1.8-7.7) 6.3 x10^3uL (1.8-7.7) Lymphocytes # (Auto) 0.5 x10^3/uL (1.0-4.8) 0.4 x10^3/uL (1.0-4.8) Monocytes # (Auto) 1.2 x10^3/uL (0.0-1.1) 1.2 x10^3/uL (0.0-1.1) Eosinophils # (Auto) 0.3 x10^3/uL (0.0-0.7) 0.2 x10^3/uL (0.0-0.7) Basophils # (Auto) 0.1 x10^3/uL (0.0-0.2) 0.1 x10^3/uL (0.0-0.2) Sodium Level 126 mmol/L (136-145) 128 mmol/L (136-145) Potassium Level 3.8 mmol/L (3.5-5.1) 3.8 mmol/L (3.5-5.1) Chloride Level 91 mmol/L (98-107) 96 mmol/L (98-107) Carbon Dioxide Level 24 mmol/L (21-32) 23 mmol/L (21-32) Anion Gap 11 (6-14) 9 (6-14) Blood Urea Nitrogen 19 mg/dL (8-26) 15 mg/dL (8-26) Creatinine 1.4 mg/dL (0.7-1.3) 1.3 mg/dL (0.7-1.3) Estimated GFR (Cockcroft-Gault) 56.4 61.5 BUN/Creatinine Ratio 14 (6-20) Glucose Level 86 mg/dL (70-99) 79 mg/dL (70-99) Calcium Level 9.7 mg/dL (8.5-10.1) 8.8 mg/dL (8.5-10.1) Magnesium Level 2.1 mg/dL (1.8-2.4) Total Bilirubin 0.7 mg/dL (0.2-1.0) Aspartate Amino Transf (AST/SGOT) 23 U/L (15-37) Alanine Aminotransferase (ALT/SGPT) 20 U/L (16-63) Alkaline Phosphatase 80 U/L (46-116) Troponin I Quantitative < 0.017 ng/mL (0.000-0.055) Total Protein 8.1 g/dL (6.4-8.2) Albumin 2.6 g/dL (3.4-5.0) Albumin/Globulin Ratio 0.5 (1.0-1.7) Lipase 1164 U/L (73-393) Lactic Acid Level 1.1 mmol/L (0.4-2.0) Urine Collection Type Unknown Urine Color Yellow Urine Clarity Clear Urine pH 6.0 Urine Specific [place] 1.025 Urine Protein 100 mg/dL (NEG-TRACE) Urine Glucose (UA) Negative mg/dL (NEG) Urine Ketones (Stick) Trace mg/dL (NEG) Urine Blood Small (NEG) Urine Nitrite Negative (NEG) Urine Bilirubin Negative (NEG) Urine Urobilinogen Dipstick 0.2 mg/dL (0.2 mg/dL) Urine Leukocyte Esterase Negative (NEG) Urine RBC 1-2 /HPF (0-2) Urine WBC Occ /HPF (0-4) Urine Squamous Epithelial Cells Few /LPF Urine Bacteria 0 /HPF (0-FEW) Urine Hyaline Casts Moderate /HPF Urine Mucus Slight /LPF Medications Current Medications Sodium Chloride 1,000 ml @ 1,000 mls/hr 1X ONCE IV Last administered on 07/08 13:36; Start 07/08/17 at 13:30; Stop 07/08/17 at 14:29; Status DC Ondansetron HCl (Zofran) 4 mg 1X ONCE IV Last administered on 07/08/17 13:36 ; Start 07/08/17 at 13:30; Stop 07/08/17 at 13:31; Status DC Morphine Sulfate 4 mg PRN Q15MIN PRN IV/SQ PAIN GREATER THAN 3/10 Last administered on 07/08/17 16:15; Start 07/08/17 at 13:30; Stop 07/08/17 at 19 :53; Status DC Sodium Chloride 1,000 ml @ 3,540 mls/hr Q17M IV ; Start 07/08/17 at 13:34; Stop 07/08/17 at 14:04; Status DC Iohexol (Omnipaque 300 Mg/ml) 60 ml 1X ONCE IV Last administered on 14:29; Start 07/08/17 at 14:30; Stop 07/08/17 at 14:31; Status DC Info (Do NOT chart on this entry -- for MONITORING) 1 each PRN DAILY PRN MC SEE COMMENTS; Start 07/08/17 at 14:30; Stop 07/10/17 at 14:29 Ondansetron HCl (Zofran) 4 mg PRN Q8HRS PRN IV NAUSEA/VOMITING Last administered on 07/09/17 01:53; Start 07/08/17 at 15:45; Stop 07/09/17 at 07 :26; Status DC Morphine Sulfate 4 mg PRN Q2HR PRN IV PAIN Last administered on 07/09/17 06: 52; Start 07/08/17 at 15:45; Stop 07/09/17 at 15:44 Sodium Chloride 1,000 ml @ 125 mls/hr Q8H IV Last administered on 07/09/17 01:56; Start 07/08/17 at 16:00; Stop 07/09/17 at 15:59 Piperacillin Sod/ Tazobactam Sod 4.5 gm/Dextrose 100 ml @ 200 mls/hr 1X ONCE IV ; Start 07/08/17 at 15:45; Stop 07/08/17 at 16:14; Status UNV Levofloxacin/ Dextrose 150 ml @ 100 mls/hr 1X ONCE IV Last administered on 16:20; Start 07/08/17 at 15:45; Stop 07/08/17 at 17:14; Status DC Vancomycin HCl 250 ml @ 250 mls/hr 1X ONCE IV ; Start 07/08/17 at 15:45; Stop 07/08/17 at 16:44; Status UNV Vancomycin HCl 2 gm/Dextrose/ Sodium Chloride 500 ml @ 250 mls/hr 1X ONCE IV Last administered on 07/08/17 18:16; Start 07/08/17 at 16:00; Stop 07/08/17 at 17:59; Status DC Piperacillin Sod/ Tazobactam Sod (Zosyn) 4.5 gm 1X ONCE IVP Last administered on 07/08/17 16:17; Start 07/08/17 at 16:00; Stop 07/08/17 at 16:01; Status DC Labetalol HCl (Normodyne) 20 mg PRN Q6HRS PRN IVP HYPERTENSION, SEE COMMENTS Last administered on 07/08/17 20:37; Start 07/08/17 at 20:00; Stop 07/09/17 at 01:23; Status DC Labetalol HCl (Normodyne) 20 mg PRN Q4HRS PRN IVP HYPERTENSION, SEE COMMENTS Last administered on 07/09/17 01:56; Start 07/09/17 at 01:30 Enalaprilat (Vasotec) 2.5 mg PRN Q6HRS PRN IV ELEVATED BP, SEE COMMENTS Last administered on 07/09/17 05:48; Start 07/09/17 at 05:00 Ondansetron HCl (Zofran) 4 mg PRN Q6HRS PRN IV NAUSEA/VOMITING; Start at 07:30; Stop 07/10/17 at 07:29 Active Scripts Active Oxycontin (Oxycodone HCl) 20 Mg Tab.er.12h 20 Mg PO TID Reported Dexamethasone 2 Mg Tablet 2 Mg PO [id number] Cyclobenzaprine Hcl 5 Mg Tablet 5 Mg PO TID Amlodipine Besylate 10 Mg Tablet 10 Mg PO DAILY Morphine Sulfate Er (Morphine Sulfate) 15 Mg Tablet.er 15 Mg PO TID Oxycodone Hcl 10 Mg Tablet 10 Mg PO PO Q 2-4HRS PRN PAIN Alprazolam 0.5 Mg Tablet 1 Tab PO BID PRN Zofran Odt (Ondansetron) 8 Mg Tab.rapdis 1 Tab PO Q8HRS Prilosec Otc (Omeprazole Magnesium) 20 Mg Tablet.dr 20 Mg PO DAILY Stool Softener Tablet (Sennosides/Docusate Sodium) 1 Each Tablet 1 Each PO DAILY Lorazepam 0.5 Mg Tablet 0.5 Mg PO PRN BID PRN Vitals/I & O Vital Sign - Last 24 Hours 07/08/17 07/08/17 07/08/17 07/08/17 12:38 13:14 13:36 13:47 Temp 97.8 97.8 Pulse 116 112 80 Resp 18 22 17 B/P (MAP) 190/103 (132) 201/132 (155) 177/108 (131) Pulse Ox 99 96 94 O2 Delivery Room Air Room Air Room Air Room Air 07/08/17 07/08/17 07/08/17 07/08/17 14:50 14:51 16:15 17:39 Temp 98.0 98.0 Pulse 96 114 Resp 24 16 14 18 B/P (MAP) 182/110 (134) 170/119 (136) Pulse Ox 97 97 O2 Delivery Room Air Room Air 07/08/17 07/08/17 07/08/17 07/08/17 17:55 19:00 20:00 20:37 Temp 98.4 98.4 Pulse 120 Resp 18 16 B/P (MAP) 173/140 (151) Pulse Ox 96 96 O2 Delivery Room Air Room Air Room Air Room Air 07/08/17 07/08/17 07/08/17 07/09/17 20:37 23:00 23:21 01:55 Temp 98.1 98.1 Pulse 120 104 Resp 18 16 16 B/P (MAP) 173/140 175/114 (134) Pulse Ox 92 96 96 O2 Delivery Room Air Room Air Room Air 07/09/17 07/09/17 07/09/17 07/09/17 01:56 03:00 04:53 05:48 Temp 98.3 98.3 Pulse 104 102 102 Resp 18 22 B/P (MAP) 175/114 171/116 (134) 171/116 Pulse Ox 94 94 O2 Delivery Room Air Room Air 07/09/17 07/09/17 07/09/17 05:51 06:52 07:00 Temp 98.0 98.0 Pulse 101 Resp 16 16 18 B/P (MAP) 141/111 (121) Pulse Ox 94 94 96 O2 Delivery Room Air Room Air Room Air Intake and Output 07/08/17 07/08/17 07/09/17 15:00 23:00 07:00 Intake Total 240 ml 0 ml Balance 240 ml 0 ml DINA NAVA MD Jul 09, 2017 09:02
[2017-07-09] MEDS ORDERED: DOCUSATE SODIUM 283 MG/5 ML ENEMA. PR PRN (10:00)
[2017-07-09] MEDS ORDERED: NALOXONE 0.4 MG/ML VIAL. IV PRN (10:00)
[2017-07-09] MEDS ORDERED: BISACODYL 10 MG SUPP.RECT. PR PRN (10:00)
--- NOTE | 2017-07-09 10:15 | PDOC ---
Provider Note Provider Note [address] IV sigmoid carcinoma presenting with widespread edison disease at dx 09/2016. S/P palliative resection followed by 16 cycles of chemotherapy with good response of edison disease. CEA continued to increase. L spine MRI here showed leptomeningeal enhancement with LP positive for malignancy 05/2017. Received 15 Gy T11 to sacrum with improved lumbar sacral back pain. Then had low neck pain and stiffness with f/u MRI revealing low C and upper T spine meningeal enhancement. Received 15 Gy C4 to T4 here with improved low neck pain and stiffness. Now with three days of projectile vomiting with minimal heme. and abdominal pain with lipase elevated to 1164 cw acute pancreatitis. Currently has uncontrolled lower T spine pain. Unable to lay flat in bed. Currently on his knees prone on floor with elbows on chair to obtain a comfortable position due to back pain. Current inpatient narcotics insufficient. PE Alert in obvious pain distress on floor as noted. Tender to palpation in lower T spine region to palpation. Rest of exam omitted. LAB Hb 13.2 WBC 8300 Plat 179K Chem Na 128 K 3.8 [address] New bilateral pleural effusions, minimal free abdominal fluid, soft tissue stranding around pancreas. modest pelvic and retroperitoneal adenopathy minimally more prominent and stable right mild hydronephrosis vs 05/2017. Impression: Progressive metastatic sigmoid carcinoma, mid to lower T spine level suggestive for leptomeningeal progression at that level.He was treated to T11 to Sacrum and C4 to T4 in recent past with improved pain at those sites. Counts are stable. Need improved pain control and address palliative to lower T spine treatment when he can lay flat. Discussed with patient family and Dr Burroughs. CHARAN NELSON MD Jul 09, 2017 10:15
--- NOTE | 2017-07-09 10:46 | PDOC2 ---
GI CONSULT Reason For Consult: Acute pancreatitis, colon cancer pt HPI: HPI: 37 y/o male w/ stage IV sigmoid carcinoma, metastatic lymphadenopathy leptomeningeal progression, s/p palliative resection, s/p chemo (says last in ), currently undergoing radiation. Ill w/ n/v, abd pain (upper and lower) , ongoing back pain x 6 days. Blood-tinged emesis x 2, last on Sunday. Dry- heaves yesterday, maybe a bit better today. H/o GERD controlled w/ Prilosec. H /o constipation improved w/ Senna, no stools for a week or so (denies hematochezia, melena). Takes morphine and oxycodone at home, no NSAIDs. Says had EGD and colonoscopy at [facility] as outpt last year. Has elevated lipase (1100s) w/ hazy strandy density about pancreas on CT. S/p cholecystectomy for sludge, no pancreas history. Drank somewhat heavily when younger, none now. PMH: PMH: per HPI, ankle surgery, knee surgery, back surgery, lymph node biopsy FH: Family History: No pertinent hx Social History: Smoke: <1 pack per day ALCOHOL: none Drugs: None ROS: GEN: Denies fevers, chills, sweats HEENT: Denies blurred vision, sore throat CV: Denies chest pain RESP: Denies shortness of air, cough GI: Per HPI : Denies hematuria, dysuria ENDO: Denies weight changes NEURO: Denies confusion, dizziness MSK: Denies weakness, joint pain/swelling SKIN: Denies jaundice, pruritus Vitals: Vitals: Vital Signs Date Time Temp Pulse Resp B/P (MAP) Pulse Ox O2 Delivery O2 Flow Rate FiO2 07/09/17 09:48 16 Room Air 07/09/17 07:00 98.0 101 141/111 (121) 96 98.0 Labs: Labs: Laboratory Tests Test 07/08/17 13:10 07/08/17 14:15 07/08/17 19:00 07/09/17 04:10 White Blood Count 9.0 x10^3/uL (4.0-11.0) 8.3 x10^3/uL (4.0-11.0) Red Blood Count 5.13 x10^6/uL (4.30-5.70) 4.55 x10^6/uL (4.30-5.70) Hemoglobin 14.9 g/dL (13.0-17.5) 13.2 g/dL (13.0-17.5) Hematocrit 44.5 % (39.0-53.0) 39.9 % (39.0-53.0) Mean Corpuscular Volume 87 fL (79-100) 88 fL (79-100) Mean Corpuscular Hemoglobin 29 pg (25-35) 29 pg (25-35) Mean Corpuscular Hemoglobin Concent 34 g/dL (31-37) 33 g/dL (31-37) Red Cell Distribution Width 17.2 % (11.5-14.5) 17.1 % (11.5-14.5) Platelet Count 200 x10^3/uL (140-400) 179 x10^3/uL (140-400) Neutrophils (%) (Auto) 77 % (31-73) 77 % (31-73) Lymphocytes (%) (Auto) 5 % (24-48) 5 % (24-48) Monocytes (%) (Auto) 14 % (0-9) 15 % (0-9) Eosinophils (%) (Auto) 3 % (0-3) 2 % (0-3) Basophils (%) (Auto) 1 % (0-3) 1 % (0-3) Neutrophils # (Auto) 6.9 x10^3uL (1.8-7.7) 6.3 x10^3uL (1.8-7.7) Lymphocytes # (Auto) 0.5 x10^3/uL (1.0-4.8) 0.4 x10^3/uL (1.0-4.8) Monocytes # (Auto) 1.2 x10^3/uL (0.0-1.1) 1.2 x10^3/uL (0.0-1.1) Eosinophils # (Auto) 0.3 x10^3/uL (0.0-0.7) 0.2 x10^3/uL (0.0-0.7) Basophils # (Auto) 0.1 x10^3/uL (0.0-0.2) 0.1 x10^3/uL (0.0-0.2) Sodium Level 126 mmol/L (136-145) 128 mmol/L (136-145) Potassium Level 3.8 mmol/L (3.5-5.1) 3.8 mmol/L (3.5-5.1) Chloride Level 91 mmol/L (98-107) 96 mmol/L (98-107) Carbon Dioxide Level 24 mmol/L (21-32) 23 mmol/L (21-32) Anion Gap 11 (6-14) 9 (6-14) Blood Urea Nitrogen 19 mg/dL (8-26) 15 mg/dL (8-26) Creatinine 1.4 mg/dL (0.7-1.3) 1.3 mg/dL (0.7-1.3) Estimated GFR (Cockcroft-Gault) 56.4 61.5 BUN/Creatinine Ratio 14 (6-20) Glucose Level 86 mg/dL (70-99) 79 mg/dL (70-99) Calcium Level 9.7 mg/dL (8.5-10.1) 8.8 mg/dL (8.5-10.1) Magnesium Level 2.1 mg/dL (1.8-2.4) Total Bilirubin 0.7 mg/dL (0.2-1.0) Aspartate Amino Transf (AST/SGOT) 23 U/L (15-37) Alanine Aminotransferase (ALT/SGPT) 20 U/L (16-63) Alkaline Phosphatase 80 U/L (46-116) Troponin I Quantitative < 0.017 ng/mL (0.000-0.055) Total Protein 8.1 g/dL (6.4-8.2) Albumin 2.6 g/dL (3.4-5.0) Albumin/Globulin Ratio 0.5 (1.0-1.7) Lipase 1164 U/L (73-393) 1145 U/L (73-393) Lactic Acid Level 1.1 mmol/L (0.4-2.0) Urine Collection Type Unknown Urine Color Yellow Urine Clarity Clear Urine pH 6.0 Urine Specific [place] 1.025 Urine Protein 100 mg/dL (NEG-TRACE) Urine Glucose (UA) Negative mg/dL (NEG) Urine Ketones (Stick) Trace mg/dL (NEG) Urine Blood Small (NEG) Urine Nitrite Negative (NEG) Urine Bilirubin Negative (NEG) Urine Urobilinogen Dipstick 0.2 mg/dL (0.2 mg/dL) Urine Leukocyte Esterase Negative (NEG) Urine RBC 1-2 /HPF (0-2) Urine WBC Occ /HPF (0-4) Urine Squamous Epithelial Cells Few /LPF Urine Bacteria 0 /HPF (0-FEW) Urine Hyaline Casts Moderate /HPF Urine Mucus Slight /LPF Allergies: Coded Allergies: cortisone (Verified Allergy, Intermediate, Hives, 11/07/16) ITCHING tramadol (Verified Allergy, Intermediate, 11/07/16) EXTREME MIGRAINES Medications: Current Medications Medications (Trade) Dose Ordered Sig/Wendi Route PRN Reason Start Time Stop Time Status Last Admin Dose Admin Sodium Chloride 1,000 ml @ 1,000 mls/hr 1X ONCE IV 07/08/17 13:30 07/08/17 14:29 DC 07/08/17 13:36 Ondansetron HCl (Zofran) 4 mg 1X ONCE IV 07/08/17 13:30 07/08/17 13:31 DC 07/08/17 13:36 Morphine Sulfate 4 mg PRN Q15MIN PRN IV/SQ PAIN GREATER THAN 3/10 07/08/17 13:30 07/08/17 19:53 DC 07/08/17 16:15 Iohexol (Omnipaque 300 Mg/ml) 60 ml 1X ONCE IV 07/08/17 14:30 07/08/17 14:31 DC 07/08/17 14:29 Ondansetron HCl (Zofran) 4 mg PRN Q8HRS PRN IV NAUSEA/VOMITING 07/08/17 15:45 07/09/17 07:26 DC 07/09/17 01:53 Morphine Sulfate 4 mg PRN Q2HR PRN IV PAIN 07/08/17 15:45 07/09/17 09:57 DC 07/09/17 09:48 Sodium Chloride 1,000 ml @ 125 mls/hr Q8H IV 07/08/17 16:00 07/09/17 15:59 07/09/17 01:56 Levofloxacin/ Dextrose 150 ml @ 100 mls/hr 1X ONCE IV 07/08/17 15:45 07/08/17 17:14 DC 07/08/17 16:20 Vancomycin HCl 2 gm/Dextrose/ Sodium Chloride 500 ml @ 250 mls/hr 1X ONCE IV 07/08/17 16:00 07/08/17 17:59 DC 07/08/17 18:16 Piperacillin Sod/ Tazobactam Sod (Zosyn) 4.5 gm 1X ONCE IVP 07/08/17 16:00 07/08/17 16:01 DC 07/08/17 16:17 Labetalol HCl (Normodyne) 20 mg PRN Q6HRS PRN IVP HYPERTENSION, SEE COMMENTS 07/08/17 20:00 07/09/17 01:23 DC 07/08/17 20:37 Labetalol HCl (Normodyne) 20 mg PRN Q4HRS PRN IVP HYPERTENSION, SEE COMMENTS 07/09/17 01:30 07/09/17 01:56 Enalaprilat (Vasotec) 2.5 mg PRN Q6HRS PRN IV ELEVATED BP, SEE COMMENTS 07/09/17 05:00 07/09/17 05:48 Imaging: Imaging: CT A/P Impression: 1.There are new at least small pleural effusions bilaterally greater the right. There is new mild free fluid in the abdomen. There is relative increased hazy and strandy density about the pancreas, pancreatitis not excluded. There is mild wall prominence of the distal descending as well as transverse duodenum, duodenitis not excluded. 2. There is nonspecific lymphadenopathy, slightly increased size of nodes near the celiac axis. 3. There is again [id number] right hydronephrosis. There is a small nonobstructive right renal calculus. 4. There is again right ventral hernia near the umbilicus, some hazy density of the involved fat which could be due to incarceration. CXR Impression: No acute cardiopulmonary process. Previously visualized moderate right and small left pleural effusion are not visualized on radiographs. But there are moderate right and small left pleural effusion on the most recent CT from the same day. PE: GEN: was asleep, uncomfortable upon waking HEENT: Atraumatic, PERRL LUNGS: CTAB HEART: tachycardic ABD: BS+, epigastric and BLQ discomfort EXTREMITY: No edema SKIN: No rashes, no jaundice NEURO/PSYCH: A & O 3 A/P: A/P: Metastatic sigmoid carcinoma, back pain Pancreatitis N/v, hematemesis (on 07/07) Constipation (likely OIC) -- Will review w/ Dr. Shen. Supportive care/medical therapy for pancreatitis - unclear cause (?chemo). Any hematemesis seems to have ceased - add acid-sample case porter. Consider Movantik/Relistor for constipation. BILLY VARELA Jul 09, 2017 10:46
[2017-07-09] MEDS: MORPHINE SULFATE/PF 30 ML IV PRN ×2 (11:18→18:33)
[2017-07-09] MEDS: FAMOTIDINE 20 MG/2 ML VIAL IVP SCH ×2 (12:09→21:40)
[2017-07-09] MEDS ORDERED: METHYLNALTREXONE 12 MG/0.6 ML VIAL. SQ ONE (14:15)
--- NOTE | 2017-07-10 01:58 | CONS ---
DATE OF CONSULTATION: 07/09/2017 REFERRING DOCTOR: Chaim Jernigan M.D. DIAGNOSIS: Stage IV (T2N2M1) adenocarcinoma of the sigmoid colon with widespread adenopathy at diagnosis in 08/2016. He underwent palliative sigmoid resection in 09/2016. He had extensive adenopathy and received palliative FOLFOX, Avastin chemotherapy with an excellent response. He had persistent rising CEA level. MRI of the lumbar spine revealed leptomeningeal disease in May 2017, confirmed by LP revealing malignant cells. He had low back pain and received 15 Gy to T11 through sacrum followed by 15 Gy to C4-T4 completed earlier in the month of June 2017, both of which resulted in significant pain improvement. He now is admitted with new onset of projectile vomiting and abdominal pain, elevated lipase of 1164 is consistent with acute pancreatitis. We were asked to see him regarding followup to address palliative radiation therapy. ICD-10: C18.7, C77.0, C79.49. HISTORY OF PRESENT ILLNESS: The patient is a 37-year-old gentleman who had just completed his second course of palliative radiation to C4-T4. Following that, he has significant improvement in his upper thoracic, lower cervical neck pain and neck stiffness. He has had a 3-day history of projectile vomiting associated with minimal hematemesis. He also has had constipation with his last bowel movement 4 days prior trip to admission. He now also notes low back pain above the previous level severe enough that he cannot lay down. He has had little oral intake for the last week. Since admission, his abdominal pain has improved and he is now eating ice chips. He has no improvement of his mid back pain and is unable to lay down and currently is on his hands and knees trying to find a more comfortable position. He is ambulatory with no lower extremity weakness. No headaches now and nausea and vomiting have improved. PAST MEDICAL HISTORY: Remarkable for metastatic adenocarcinoma of the sigmoid colon presenting in August 2016 with supraclavicular adenopathy which was biopsied and confirmed malignancy. He then underwent palliative sigmoid resection in 09/2016. Following this, he underwent 16 cycles of FOLFIRI and Avastin chemotherapy with excellent response to chemotherapy with resolution of his widespread edison metastatic disease. Throughout treatment, he had elevated CEA level rising to 533 and 1014 when measured in 05/2017. Lumbar MRI scan here in May 2017 revealed leptomeningeal enhancement from the upper aspect of the scan at T11 through the sacrum. Follow up C&T spine imaging at did not reveal meningeal enhancement at that time. He then received 15 Gy to T11 through sacrum with marked improvement of his low lumbosacral level pain. Followup imaging at the time of low neck stiffness revealed enhancement in the posterior aspect of the inferior cervical, upper thoracic spinal meninges. He then received 15 Gy to C4-T4 with improvement of neck stiffness. He was planning on undergoing second line GI salvage chemotherapy at which time we were also planning on supplemental whole brain treatment which has yet to occur. PAST MEDICAL HISTORY: Also remarkable for cholecystectomy, lumbar back surgery in 2013. Previous ankle and knee surgery. MEDICATIONS: See hospital chart. FAMILY HISTORY: Remarkable for prostate cancer. No colorectal cancer. PHYSICAL EXAMINATION: GENERAL: Revealed a conversant gentleman in obvious pain distress on his hands and knees on the floor looking for a comfortable position. He had palpable tenderness at his low thoracic level of the spine with absence of tenderness elsewhere. Due to his positioning and pain additional physical exam was not feasible. CT scan of the abdomen and pelvis revealed new bilateral pleural effusions, small free fluid in the abdomen. Modest retroperitoneal and pelvic adenopathy slightly worse than previous imaging in May. Liver was clear. Mild right hydronephrosis. Chest x-ray revealed right and left pleural effusions, not well visualized on plain chest x-ray with no other acute findings. LABORATORY STUDIES: CBC on 07/09/2017, hemoglobin 13.2, white count 8300, platelet count 179,000. Chemistry panel on admission revealed a sodium 126, potassium 3.8, creatinine 1.4, normal liver function test, lipase 1164. Recheck chemistry panel revealed sodium 128 and creatinine 1.3. ASSESSMENT AND PLAN: In summary, my impression is that of widely metastatic adenocarcinoma of the sigmoid colon with leptomeningeal disease, now with lower thoracic back pain at that juncture or above the level of prior treatment. He has tolerated prior courses of palliative radiation therapy well with no significant cytopenias. At this time modest dose treatment to his area of significant back pain is rational as prior treatment efforts have resulted in improved pain elsewhere in the spine. There is modest risk of significant cytopenias from treatment, but given the scope of therapy and its dose it has likely been well tolerated as previous courses have been. Discussed this in detail with the patient and his family as well as Dr. Jernigan. Prior to initiating any simulation it is critical that he has improved pain control. I recommend a COIL CLEANER infusion pump with morphine as this has been his baseline medication in the past. I reviewed this with Dr. Burroughs who will pursue a COIL CLEANER pump. Anticipating his pain is under control and the next day, we would then proceed with simulation followed by treatment including treatment prophylactically to modest dose to the skull base and whole brain. Thank you again for allowing us to participate in his evaluation. CHARAN NELSON MD DR: IJEOMA/carl JOB#: [id number] / [id number] POOJA Tineo MD, LEE MD MTDD
[2017-07-10] MEDS: MORPHINE SULFATE/PF 30 ML IV PRN ×2 (02:57→10:37)
[2017-07-10 03:00] VITALS: BP 168/97
[2017-07-10 06:56] LABS: CREATININE 1.3 mg/dL (0.7-1.3); GFR 61.5; POTASSIUM 4.2 mmol/L (3.5-5.1)
[2017-07-10 07:00] VITALS: BP_SYST 161; BP_SYST 165; BP_DIAS 100; BP_DIAS 101
[2017-07-10] MEDS: ENALAPRILAT 2.5 MG/2 ML VIAL. IV PRN ×2 (08:29→15:28)
[2017-07-10] MEDS: FAMOTIDINE 20 MG/2 ML VIAL IVP SCH ×2 (08:35→21:00)
--- NOTE | 2017-07-10 08:53 | PDOC ---
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 Admitted with recent onset abd pain N and V c/w acute pancreatitis. Back pain much better with MS04 ADVENTURE GUIDE pump. Pain decreased from 7-8 to 3-4 on 10 scale. Able to sleep supine last night. Abd pain N and V currently absent. On ice chips o/w NPO. Impression: Leptomeningeal carcinoma now with low thoracic back pain at a level above prior lumbar pain and below cervical pain regions both of which have responded to palliative radiation earlier in the month. CBC normal with no cytopenias. Will proceed with simulation to lower T spine region today with treatment to follow tomorrow over 5 day treatment course. Discussed with patient. CHARAN NELSON MD Jul 10, 2017 08:53
[2017-07-10] MEDS: IV NORMAL SALINE 1000ML BAG 1,000 ML IV SCH ×2 (09:54→16:19)
--- NOTE | 2017-07-10 10:07 | PDOC ---
Subjective: Subjective: Feels better today. Has some back pain but denies abd pain. Denies n/v (or hematemesis). Would like to eat. Objective: Objective: Reviewed w/ RN, using GEM EXPERT a lot. Vital Signs: Vital Signs Date Time Temp Pulse Resp B/P (MAP) Pulse Ox O2 Delivery O2 Flow Rate FiO2 07/10/17 08:29 108 161/110 07/10/17 07:00 97.8 20 90 Room Air 97.8 Labs: Laboratory Tests Test 07/10/17 06:30 Sodium Level 131 mmol/L Potassium Level 4.2 mmol/L Chloride Level 99 mmol/L Carbon Dioxide Level 23 mmol/L Anion Gap 9 Blood Urea Nitrogen 15 mg/dL Creatinine 1.3 mg/dL Estimated GFR (Cockcroft-Gault) 61.5 Glucose Level 67 mg/dL Calcium Level 9.0 mg/dL Lipase 1039 U/L PE: GEN: NAD, was asleep LUNGS: CTAB HEART: tachycardic ABD: less tender, BS+ NEURO/PSYCH: A & O 3 A/P: Metastatic sigmoid carcinoma Back pain - on GEM EXPERT Pancreatitis - n/v and abd pain resolved, some improvement in lipase Tachycardia Constipation (likely OIC) - received Relistor x 1 07/09 -- Reviewed w/ Dr. Shen - okay to try clears. BILLY VARELA Jul 10, 2017 10:07
--- NOTE | 2017-07-10 13:02 | PDOC ---
PROGRESS NOTES Subjective Subjective HPI - Stage 4 colon cancer with metastatic lymphadenopathy in the cervical, mediastinal and intraabdominal lymph nodes, which have gotten better. However, there is evidence of slight progression in the abdominal lymph nodes in the most recent CAT scan and left supraclavicular LN palpable. ROS - back pain better Objective Objective Vital Signs Date Time Temp Pulse Resp B/P (MAP) Pulse Ox O2 Delivery O2 Flow Rate FiO2 07/10/17 11:07 16 Room Air 07/10/17 08:29 108 161/110 07/10/17 07:00 97.8 90 97.8 Intake and Output 07/10/17 07:00 Intake Total 550 ml Balance 550 ml Intake Oral 0 ml IV Total 275 ml Other 275 ml # Voids 1 Physical Exam Heart: Normal S1, Normal S2 General: Alert, Oriented X3 Lungs: Clear to auscultation Neuro: Normal speech Psych/Mental Status: Mental status NL Assessment Assessment Problems Medical Problems: (1) Acute pancreatitis Status: Acute (2) Acute renal failure Status: Acute (3) Colon cancer metastasized to multiple sites Status: Acute (4) Hyponatremia Status: Acute (5) Nausea & vomiting Status: Acute IMPRESSION AND PLAN: 1. Stage 4 colon cancer with metastatic lymphadenopathy in the cervical, mediastinal and intraabdominal lymph nodes, which have gotten better. However, there is evidence of slight progression in the abdominal lymph nodes in the most recent CAT scan and left supraclavicular LN palpable. He underwent a lumbar puncture on 06/07/2017, which revealed metastatic adenocarcinoma indicating leptomeningeal disease. I would continue supportive care at this time while he gets radiation therapy. I d/w Dr Suarez for continuation of radiation. Plan chemo next week. 2. 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 He is undergoing radiation therapy. Back pain much better with WEB KNITTER pump. 3. Acute pancreatitis - appreciate management per Dr Mccray. Comment Review of Relevant I have reviewed the following items gloria (where applicable) has been applied. Labs Laboratory Tests Test 07/08/17 13:10 07/08/17 14:15 07/08/17 19:00 07/09/17 04:10 White Blood Count 9.0 x10^3/uL (4.0-11.0) 8.3 x10^3/uL (4.0-11.0) Red Blood Count 5.13 x10^6/uL (4.30-5.70) 4.55 x10^6/uL (4.30-5.70) Hemoglobin 14.9 g/dL (13.0-17.5) 13.2 g/dL (13.0-17.5) Hematocrit 44.5 % (39.0-53.0) 39.9 % (39.0-53.0) Mean Corpuscular Volume 87 fL (79-100) 88 fL (79-100) Mean Corpuscular Hemoglobin 29 pg (25-35) 29 pg (25-35) Mean Corpuscular Hemoglobin Concent 34 g/dL (31-37) 33 g/dL (31-37) Red Cell Distribution Width 17.2 % (11.5-14.5) 17.1 % (11.5-14.5) Platelet Count 200 x10^3/uL (140-400) 179 x10^3/uL (140-400) Neutrophils (%) (Auto) 77 % (31-73) 77 % (31-73) Lymphocytes (%) (Auto) 5 % (24-48) 5 % (24-48) Monocytes (%) (Auto) 14 % (0-9) 15 % (0-9) Eosinophils (%) (Auto) 3 % (0-3) 2 % (0-3) Basophils (%) (Auto) 1 % (0-3) 1 % (0-3) Neutrophils # (Auto) 6.9 x10^3uL (1.8-7.7) 6.3 x10^3uL (1.8-7.7) Lymphocytes # (Auto) 0.5 x10^3/uL (1.0-4.8) 0.4 x10^3/uL (1.0-4.8) Monocytes # (Auto) 1.2 x10^3/uL (0.0-1.1) 1.2 x10^3/uL (0.0-1.1) Eosinophils # (Auto) 0.3 x10^3/uL (0.0-0.7) 0.2 x10^3/uL (0.0-0.7) Basophils # (Auto) 0.1 x10^3/uL (0.0-0.2) 0.1 x10^3/uL (0.0-0.2) Sodium Level 126 mmol/L (136-145) 128 mmol/L (136-145) Potassium Level 3.8 mmol/L (3.5-5.1) 3.8 mmol/L (3.5-5.1) Chloride Level 91 mmol/L (98-107) 96 mmol/L (98-107) Carbon Dioxide Level 24 mmol/L (21-32) 23 mmol/L (21-32) Anion Gap 11 (6-14) 9 (6-14) Blood Urea Nitrogen 19 mg/dL (8-26) 15 mg/dL (8-26) Creatinine 1.4 mg/dL (0.7-1.3) 1.3 mg/dL (0.7-1.3) Estimated GFR (Cockcroft-Gault) 56.4 61.5 BUN/Creatinine Ratio 14 (6-20) Glucose Level 86 mg/dL (70-99) 79 mg/dL (70-99) Calcium Level 9.7 mg/dL (8.5-10.1) 8.8 mg/dL (8.5-10.1) Magnesium Level 2.1 mg/dL (1.8-2.4) Total Bilirubin 0.7 mg/dL (0.2-1.0) Aspartate Amino Transf (AST/SGOT) 23 U/L (15-37) Alanine Aminotransferase (ALT/SGPT) 20 U/L (16-63) Alkaline Phosphatase 80 U/L (46-116) Troponin I Quantitative < 0.017 ng/mL (0.000-0.055) Total Protein 8.1 g/dL (6.4-8.2) Albumin 2.6 g/dL (3.4-5.0) Albumin/Globulin Ratio 0.5 (1.0-1.7) Lipase 1164 U/L (73-393) 1145 U/L (73-393) Lactic Acid Level 1.1 mmol/L (0.4-2.0) Urine Collection Type Unknown Urine Color Yellow Urine Clarity Clear Urine pH 6.0 Urine Specific [place] 1.025 Urine Protein 100 mg/dL (NEG-TRACE) Urine Glucose (UA) Negative mg/dL (NEG) Urine Ketones (Stick) Trace mg/dL (NEG) Urine Blood Small (NEG) Urine Nitrite Negative (NEG) Urine Bilirubin Negative (NEG) Urine Urobilinogen Dipstick 0.2 mg/dL (0.2 mg/dL) Urine Leukocyte Esterase Negative (NEG) Urine RBC 1-2 /HPF (0-2) Urine WBC Occ /HPF (0-4) Urine Squamous Epithelial Cells Few /LPF Urine Bacteria 0 /HPF (0-FEW) Urine Hyaline Casts Moderate /HPF Urine Mucus Slight /LPF Test 07/10/17 06:30 Sodium Level 131 mmol/L (136-145) Potassium Level 4.2 mmol/L (3.5-5.1) Chloride Level 99 mmol/L (98-107) Carbon Dioxide Level 23 mmol/L (21-32) Anion Gap 9 (6-14) Blood Urea Nitrogen 15 mg/dL (8-26) Creatinine 1.3 mg/dL (0.7-1.3) Estimated GFR (Cockcroft-Gault) 61.5 Glucose Level 67 mg/dL (70-99) Calcium Level 9.0 mg/dL (8.5-10.1) Lipase 1039 U/L (73-393) Laboratory Tests Test 07/10/17 06:30 Sodium Level 131 mmol/L (136-145) Potassium Level 4.2 mmol/L (3.5-5.1) Chloride Level 99 mmol/L (98-107) Carbon Dioxide Level 23 mmol/L (21-32) Anion Gap 9 (6-14) Blood Urea Nitrogen 15 mg/dL (8-26) Creatinine 1.3 mg/dL (0.7-1.3) Estimated GFR (Cockcroft-Gault) 61.5 Glucose Level 67 mg/dL (70-99) Calcium Level 9.0 mg/dL (8.5-10.1) Lipase 1039 U/L (73-393) Microbiology 07/08/17 Blood Culture - Preliminary, Resulted NO GROWTH AFTER 1 DAY Medications Current Medications Sodium Chloride 1,000 ml @ 1,000 mls/hr 1X ONCE IV Last administered on 07/08 13:36; Start 07/08/17 at 13:30; Stop 07/08/17 at 14:29; Status DC Ondansetron HCl (Zofran) 4 mg 1X ONCE IV Last administered on 07/08/17 13:36 ; Start 07/08/17 at 13:30; Stop 07/08/17 at 13:31; Status DC Morphine Sulfate 4 mg PRN Q15MIN PRN IV/SQ PAIN GREATER THAN 3/10 Last administered on 07/08/17 16:15; Start 07/08/17 at 13:30; Stop 07/08/17 at 19 :53; Status DC Sodium Chloride 1,000 ml @ 3,540 mls/hr Q17M IV ; Start 07/08/17 at 13:34; Stop 07/08/17 at 14:04; Status DC Iohexol (Omnipaque 300 Mg/ml) 60 ml 1X ONCE IV Last administered on 14:29; Start 07/08/17 at 14:30; Stop 07/08/17 at 14:31; Status DC Info (Do NOT chart on this entry -- for MONITORING) 1 each PRN DAILY PRN MC SEE COMMENTS; Start 07/08/17 at 14:30; Stop 07/10/17 at 14:29 Ondansetron HCl (Zofran) 4 mg PRN Q8HRS PRN IV NAUSEA/VOMITING Last administered on 07/09/17 01:53; Start 07/08/17 at 15:45; Stop 07/09/17 at 07 :26; Status DC Morphine Sulfate 4 mg PRN Q2HR PRN IV PAIN Last administered on 07/09/17 09: 48; Start 07/08/17 at 15:45; Stop 07/09/17 at 09:57; Status DC Sodium Chloride 1,000 ml @ 125 mls/hr Q8H IV Last administered on 07/09/17 08:00; Start 07/08/17 at 16:00; Stop 07/09/17 at 15:59; Status DC Piperacillin Sod/ Tazobactam Sod 4.5 gm/Dextrose 100 ml @ 200 mls/hr 1X ONCE IV ; Start 07/08/17 at 15:45; Stop 07/08/17 at 16:14; Status UNV Levofloxacin/ Dextrose 150 ml @ 100 mls/hr 1X ONCE IV Last administered on 16:20; Start 07/08/17 at 15:45; Stop 07/08/17 at 17:14; Status DC Vancomycin HCl 250 ml @ 250 mls/hr 1X ONCE IV ; Start 07/08/17 at 15:45; Stop 07/08/17 at 16:44; Status UNV Vancomycin HCl 2 gm/Dextrose/ Sodium Chloride 500 ml @ 250 mls/hr 1X ONCE IV Last administered on 07/08/17 18:16; Start 07/08/17 at 16:00; Stop 07/08/17 at 17:59; Status DC Piperacillin Sod/ Tazobactam Sod (Zosyn) 4.5 gm 1X ONCE IVP Last administered on 07/08/17 16:17; Start 07/08/17 at 16:00; Stop 07/08/17 at 16:01; Status DC Labetalol HCl (Normodyne) 20 mg PRN Q6HRS PRN IVP HYPERTENSION, SEE COMMENTS Last administered on 07/08/17 20:37; Start 07/08/17 at 20:00; Stop 07/09/17 at 01:23; Status DC Labetalol HCl (Normodyne) 20 mg PRN Q4HRS PRN IVP HYPERTENSION, SEE COMMENTS Last administered on 07/09/17 01:56; Start 07/09/17 at 01:30 Enalaprilat (Vasotec) 2.5 mg PRN Q6HRS PRN IV ELEVATED BP, SEE COMMENTS Last administered on 07/10/17 08:29; Start 07/09/17 at 05:00 Ondansetron HCl (Zofran) 4 mg PRN Q6HRS PRN IV NAUSEA/VOMITING; Start at 07:30; Stop 07/10/17 at 07:29; Status DC Naloxone HCl (Narcan) 0.4 mg PRN Q2MIN PRN IV SEE INSTRUCTIONS; Start at 10:00 Sodium Chloride 1,000 ml @ 25 mls/hr Q24H IV Last administered on 07/10/17 09:54; Start 07/09/17 at 09:54 Morphine Sulfate 30 ml @ 0 mls/hr CONT PRN PRN IV PROTOCOL Last administered on 07/10/17 10:37; Start 07/09/17 at 10:00 Bisacodyl (Dulcolax Supp) 10 mg PRN DAILY PRN NE CONSTIPATION; Start 07/09/17 at 10:00 Docusate Sodium (Enemeez) 283 mg PRN DAILY PRN NE CONSTIPATION; Start at 10:00 Famotidine (Pepcid Vial) 20 mg BID IVP Last administered on 07/10/17 08:35; Start 07/09/17 at 11:00 Methylnaltrexone [place] (Relistor) 12 mg 1X ONCE SQ Last administered on 15:54; Start 07/09/17 at 14:15; Stop 07/09/17 at 14:16; Status DC Active Scripts Active Oxycontin (Oxycodone HCl) 20 Mg Tab.er.12h 20 Mg PO TID Reported Dexamethasone 2 Mg Tablet 2 Mg PO [id number] Cyclobenzaprine Hcl 5 Mg Tablet 5 Mg PO TID Amlodipine Besylate 10 Mg Tablet 10 Mg PO DAILY Morphine Sulfate Er (Morphine Sulfate) 15 Mg Tablet.er 15 Mg PO TID Oxycodone Hcl 10 Mg Tablet 10 Mg PO PO Q 2-4HRS PRN PAIN Alprazolam 0.5 Mg Tablet 1 Tab PO BID PRN Zofran Odt (Ondansetron) 8 Mg Tab.rapdis 1 Tab PO Q8HRS Prilosec Otc (Omeprazole Magnesium) 20 Mg Tablet.dr 20 Mg PO DAILY Stool Softener Tablet (Sennosides/Docusate Sodium) 1 Each Tablet 1 Each PO DAILY Lorazepam 0.5 Mg Tablet 0.5 Mg PO PRN BID PRN Vitals/I & O Vital Sign - Last 24 Hours 07/09/17 07/09/17 07/09/17 07/09/17 15:00 18:33 19:00 20:00 Temp 97.5 98.1 97.5 98.1 Pulse 99 106 Resp 19 16 18 B/P (MAP) 162/116 (131) 153/114 (127) Pulse Ox 97 95 O2 Delivery Room Air Room Air Room Air Room Air 07/09/17 07/09/17 07/09/17 07/09/17 20:00 20:07 21:00 23:00 Temp 97.9 97.9 Pulse 85 99 107 87 Resp 18 18 18 B/P (MAP) 165/132 (143) 162/116 132/117 (122) 163/80 (107) Pulse Ox 96 96 93 O2 Delivery Room Air Room Air Room Air 07/10/17 07/10/17 07/10/17 07/10/17 02:57 03:00 07:00 08:29 Temp 98.3 97.8 98.3 97.8 Pulse 95 108 108 Resp 18 18 20 B/P (MAP) 168/97 (120) 165/100 (121) 161/110 161/101 (121) Pulse Ox 94 90 O2 Delivery Room Air Room Air Room Air 07/10/17 07/10/17 10:37 11:07 Resp 16 16 O2 Delivery Room Air Room Air Intake and Output 07/09/17 07/09/17 07/10/17 15:00 23:00 07:00 Intake Total 0 ml 550 ml Balance 0 ml 550 ml PABLO MCCABE MD Jul 10, 2017 13:02
[2017-07-10] MEDS ORDERED: ONDANSETRON PF 4 MG/2 ML VIAL. IV PRN (13:30)
--- NOTE | 2017-07-10 13:42 | PDOC ---
PROGRESS NOTES Chief Complaint Chief Complaint 1. Acute pancreatitis 2. 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 Obesity 5. Narc tolerant History of Present Illness History of Present Illness started on liquid diet today bec he wanted to eat and felt hungry On my visit he is vomiting LIpase 1039 from 1145 HAd radiation tx today PLAN: Zofran now COnt PERINATAL DIRECTOR for now Might need to be NPO again Vitals Vitals Vital Signs Date Time Temp Pulse Resp B/P (MAP) Pulse Ox O2 Delivery O2 Flow Rate FiO2 07/10/17 11:07 16 Room Air 07/10/17 08:29 108 161/110 07/10/17 07:00 97.8 90 97.8 Physical Exam General: Alert, Oriented X3 Heart: Normal S1, Normal S2 Lungs: Clear Abdomen: Soft, Other (non tender,no guarding) Extremities: No clubbing, No cyanosis Skin: No rashes, No breakdown Labs LABS Laboratory Tests Test 07/10/17 06:30 Sodium Level 131 mmol/L (136-145) Potassium Level 4.2 mmol/L (3.5-5.1) Chloride Level 99 mmol/L (98-107) Carbon Dioxide Level 23 mmol/L (21-32) Anion Gap 9 (6-14) Blood Urea Nitrogen 15 mg/dL (8-26) Creatinine 1.3 mg/dL (0.7-1.3) Estimated GFR (Cockcroft-Gault) 61.5 Glucose Level 67 mg/dL (70-99) Calcium Level 9.0 mg/dL (8.5-10.1) Lipase 1039 U/L (73-393) Review of Systems Review of Systems vomiting Assessment and Plan Assessmemt and Plan Problems Medical Problems: (1) Acute pancreatitis Status: Acute (2) Acute renal failure Status: Acute (3) Colon cancer metastasized to multiple sites Status: Acute (4) Hyponatremia Status: Acute (5) Nausea & vomiting Status: Acute Problems: Comment Review of Relevant I have reviewed the following items gloria (where applicable) has been applied. Labs Laboratory Tests Test 07/08/17 14:15 07/08/17 19:00 07/09/17 04:10 07/10/17 06:30 Lactic Acid Level 1.1 mmol/L (0.4-2.0) Urine Collection Type Unknown Urine Color Yellow Urine Clarity Clear Urine pH 6.0 Urine Specific [place] 1.025 Urine Protein 100 mg/dL (NEG-TRACE) Urine Glucose (UA) Negative mg/dL (NEG) Urine Ketones (Stick) Trace mg/dL (NEG) Urine Blood Small (NEG) Urine Nitrite Negative (NEG) Urine Bilirubin Negative (NEG) Urine Urobilinogen Dipstick 0.2 mg/dL (0.2 mg/dL) Urine Leukocyte Esterase Negative (NEG) Urine RBC 1-2 /HPF (0-2) Urine WBC Occ /HPF (0-4) Urine Squamous Epithelial Cells Few /LPF Urine Bacteria 0 /HPF (0-FEW) Urine Hyaline Casts Moderate /HPF Urine Mucus Slight /LPF White Blood Count 8.3 x10^3/uL (4.0-11.0) Red Blood Count 4.55 x10^6/uL (4.30-5.70) Hemoglobin 13.2 g/dL (13.0-17.5) Hematocrit 39.9 % (39.0-53.0) Mean Corpuscular Volume 88 fL (79-100) Mean Corpuscular Hemoglobin 29 pg (25-35) Mean Corpuscular Hemoglobin Concent 33 g/dL (31-37) Red Cell Distribution Width 17.1 % (11.5-14.5) Platelet Count 179 x10^3/uL (140-400) Neutrophils (%) (Auto) 77 % (31-73) Lymphocytes (%) (Auto) 5 % (24-48) Monocytes (%) (Auto) 15 % (0-9) Eosinophils (%) (Auto) 2 % (0-3) Basophils (%) (Auto) 1 % (0-3) Neutrophils # (Auto) 6.3 x10^3uL (1.8-7.7) Lymphocytes # (Auto) 0.4 x10^3/uL (1.0-4.8) Monocytes # (Auto) 1.2 x10^3/uL (0.0-1.1) Eosinophils # (Auto) 0.2 x10^3/uL (0.0-0.7) Basophils # (Auto) 0.1 x10^3/uL (0.0-0.2) Sodium Level 128 mmol/L (136-145) 131 mmol/L (136-145) Potassium Level 3.8 mmol/L (3.5-5.1) 4.2 mmol/L (3.5-5.1) Chloride Level 96 mmol/L (98-107) 99 mmol/L (98-107) Carbon Dioxide Level 23 mmol/L (21-32) 23 mmol/L (21-32) Anion Gap 9 (6-14) 9 (6-14) Blood Urea Nitrogen 15 mg/dL (8-26) 15 mg/dL (8-26) Creatinine 1.3 mg/dL (0.7-1.3) 1.3 mg/dL (0.7-1.3) Estimated GFR (Cockcroft-Gault) 61.5 61.5 Glucose Level 79 mg/dL (70-99) 67 mg/dL (70-99) Calcium Level 8.8 mg/dL (8.5-10.1) 9.0 mg/dL (8.5-10.1) Lipase 1145 U/L (73-393) 1039 U/L (73-393) Laboratory Tests Test 07/10/17 06:30 Sodium Level 131 mmol/L (136-145) Potassium Level 4.2 mmol/L (3.5-5.1) Chloride Level 99 mmol/L (98-107) Carbon Dioxide Level 23 mmol/L (21-32) Anion Gap 9 (6-14) Blood Urea Nitrogen 15 mg/dL (8-26) Creatinine 1.3 mg/dL (0.7-1.3) Estimated GFR (Cockcroft-Gault) 61.5 Glucose Level 67 mg/dL (70-99) Calcium Level 9.0 mg/dL (8.5-10.1) Lipase 1039 U/L (73-393) Microbiology 07/08/17 Blood Culture - Preliminary, Resulted NO GROWTH AFTER 1 DAY Medications Current Medications Sodium Chloride 1,000 ml @ 1,000 mls/hr 1X ONCE IV Last administered on 07/08 13:36; Start 07/08/17 at 13:30; Stop 07/08/17 at 14:29; Status DC Ondansetron HCl (Zofran) 4 mg 1X ONCE IV Last administered on 07/08/17 13:36 ; Start 07/08/17 at 13:30; Stop 07/08/17 at 13:31; Status DC Morphine Sulfate 4 mg PRN Q15MIN PRN IV/SQ PAIN GREATER THAN 3/10 Last administered on 07/08/17 16:15; Start 07/08/17 at 13:30; Stop 07/08/17 at 19 :53; Status DC Sodium Chloride 1,000 ml @ 3,540 mls/hr Q17M IV ; Start 07/08/17 at 13:34; Stop 07/08/17 at 14:04; Status DC Iohexol (Omnipaque 300 Mg/ml) 60 ml 1X ONCE IV Last administered on 14:29; Start 07/08/17 at 14:30; Stop 07/08/17 at 14:31; Status DC Info (Do NOT chart on this entry -- for MONITORING) 1 each PRN DAILY PRN MC SEE COMMENTS; Start 07/08/17 at 14:30; Stop 07/10/17 at 14:29 Ondansetron HCl (Zofran) 4 mg PRN Q8HRS PRN IV NAUSEA/VOMITING Last administered on 07/09/17 01:53; Start 07/08/17 at 15:45; Stop 07/09/17 at 07 :26; Status DC Morphine Sulfate 4 mg PRN Q2HR PRN IV PAIN Last administered on 07/09/17 09: 48; Start 07/08/17 at 15:45; Stop 07/09/17 at 09:57; Status DC Sodium Chloride 1,000 ml @ 125 mls/hr Q8H IV Last administered on 07/09/17 08:00; Start 07/08/17 at 16:00; Stop 07/09/17 at 15:59; Status DC Piperacillin Sod/ Tazobactam Sod 4.5 gm/Dextrose 100 ml @ 200 mls/hr 1X ONCE IV ; Start 07/08/17 at 15:45; Stop 07/08/17 at 16:14; Status UNV Levofloxacin/ Dextrose 150 ml @ 100 mls/hr 1X ONCE IV Last administered on 16:20; Start 07/08/17 at 15:45; Stop 07/08/17 at 17:14; Status DC Vancomycin HCl 250 ml @ 250 mls/hr 1X ONCE IV ; Start 07/08/17 at 15:45; Stop 07/08/17 at 16:44; Status UNV Vancomycin HCl 2 gm/Dextrose/ Sodium Chloride 500 ml @ 250 mls/hr 1X ONCE IV Last administered on 07/08/17 18:16; Start 07/08/17 at 16:00; Stop 07/08/17 at 17:59; Status DC Piperacillin Sod/ Tazobactam Sod (Zosyn) 4.5 gm 1X ONCE IVP Last administered on 07/08/17 16:17; Start 07/08/17 at 16:00; Stop 07/08/17 at 16:01; Status DC Labetalol HCl (Normodyne) 20 mg PRN Q6HRS PRN IVP HYPERTENSION, SEE COMMENTS Last administered on 07/08/17 20:37; Start 07/08/17 at 20:00; Stop 07/09/17 at 01:23; Status DC Labetalol HCl (Normodyne) 20 mg PRN Q4HRS PRN IVP HYPERTENSION, SEE COMMENTS Last administered on 07/09/17 01:56; Start 07/09/17 at 01:30 Enalaprilat (Vasotec) 2.5 mg PRN Q6HRS PRN IV ELEVATED BP, SEE COMMENTS Last administered on 07/10/17 08:29; Start 07/09/17 at 05:00 Ondansetron HCl (Zofran) 4 mg PRN Q6HRS PRN IV NAUSEA/VOMITING; Start at 07:30; Stop 07/10/17 at 07:29; Status DC Naloxone HCl (Narcan) 0.4 mg PRN Q2MIN PRN IV SEE INSTRUCTIONS; Start at 10:00 Sodium Chloride 1,000 ml @ 25 mls/hr Q24H IV Last administered on 07/10/17 09:54; Start 07/09/17 at 09:54 Morphine Sulfate 30 ml @ 0 mls/hr CONT PRN PRN IV PROTOCOL Last administered on 07/10/17 10:37; Start 07/09/17 at 10:00 Bisacodyl (Dulcolax Supp) 10 mg PRN DAILY PRN [place] CONSTIPATION; Start 07/09/17 at 10:00 Docusate Sodium (Enemeez) 283 mg PRN DAILY PRN [place] CONSTIPATION; Start at 10:00 Famotidine (Pepcid Vial) 20 mg BID IVP Last administered on 07/10/17 08:35; Start 07/09/17 at 11:00 Methylnaltrexone [place] (Relistor) 12 mg 1X ONCE SQ Last administered on 15:54; Start 07/09/17 at 14:15; Stop 07/09/17 at 14:16; Status DC Ondansetron HCl (Zofran) 4 mg PRN Q6HRS PRN IV NAUSEA/VOMITING Last administered on 07/10/17 13:29; Start 07/10/17 at 13:30 Active Scripts Active Oxycontin (Oxycodone HCl) 20 Mg Tab.er.12h 20 Mg PO TID Reported Dexamethasone 2 Mg Tablet 2 Mg PO DAILYWBKFT Cyclobenzaprine Hcl 5 Mg Tablet 5 Mg PO TID Amlodipine Besylate 10 Mg Tablet 10 Mg PO DAILY Morphine Sulfate Er (Morphine Sulfate) 15 Mg Tablet.er 15 Mg PO TID Oxycodone Hcl 10 Mg Tablet 10 Mg PO PO Q 2-4HRS PRN PAIN Alprazolam 0.5 Mg Tablet 1 Tab PO BID PRN Zofran Odt (Ondansetron) 8 Mg Tab.rapdis 1 Tab PO Q8HRS Prilosec Otc (Omeprazole Magnesium) 20 Mg Tablet.dr 20 Mg PO DAILY Stool Softener Tablet (Sennosides/Docusate Sodium) 1 Each Tablet 1 Each PO DAILY Lorazepam 0.5 Mg Tablet 0.5 Mg PO PRN BID PRN Vitals/I & O Vital Sign - Last 24 Hours 07/09/17 07/09/17 07/09/17 07/09/17 15:00 18:33 19:00 20:00 Temp 97.5 98.1 97.5 98.1 Pulse 99 106 Resp 19 16 18 B/P (MAP) 162/116 (131) 153/114 (127) Pulse Ox 97 95 O2 Delivery Room Air Room Air Room Air Room Air 07/09/17 07/09/17 07/09/17 07/09/17 20:00 20:07 21:00 23:00 Temp 97.9 97.9 Pulse 85 99 107 87 Resp 18 18 18 B/P (MAP) 165/132 (143) 162/116 132/117 (122) 163/80 (107) Pulse Ox 96 96 93 O2 Delivery Room Air Room Air Room Air 07/10/17 07/10/17 07/10/17 07/10/17 02:57 03:00 07:00 08:00 Temp 98.3 97.8 98.3 97.8 Pulse 95 108 Resp 18 18 20 B/P (MAP) 168/97 (120) 165/100 (121) 161/101 (121) Pulse Ox 94 90 O2 Delivery Room Air Room Air Room Air Room Air 07/10/17 07/10/17 07/10/17 08:29 10:37 11:07 Pulse 108 Resp 16 16 B/P (MAP) 161/110 O2 Delivery Room Air Room Air Intake and Output 07/09/17 07/09/17 07/10/17 15:00 23:00 07:00 Intake Total 0 ml 550 ml Balance 0 ml 550 ml DINA NAVA MD Jul 10, 2017 13:42
[2017-07-10 15:12] VITALS: BP 158/108
[2017-07-10] MEDS: CYCLOBENZAPRINE 10 MG TABLET. PO SCH ×2 (16:00→21:27)
[2017-07-10] MEDS ORDERED: ALPRAZolam 0.5 MG TABLET PO PRN (16:00)
[2017-07-10] MEDS ORDERED: MORPHINE ER 15 MG TABLET.ER PO SCH (16:00)
[2017-07-10] MEDS: ONDANSETRON ODT 4 MG TAB.RAPDIS. PO SCH ×2 (16:00→21:30)
[2017-07-10] MEDS: oxyCODONE ER 10 MG TAB.ER.12H PO SCH ×2 (16:01→21:27)
[2017-07-10] MEDS: SENNOSIDES/DOCUSATE 8.6/50MG TABLET. PO SCH (16:20)
[2017-07-10] MEDS: PANTOPRAZOLE 40 MG TABLET.DR. PO SCH (16:21)
[2017-07-10] MEDS: amLODIPine BESYLATE 10 MG TABLET PO SCH (16:21)
[2017-07-10] MEDS: DEXAMETHASONE 1 MG TABLET PO SCH (16:22)
[2017-07-10 19:00] VITALS: BP 141/101
[2017-07-10 23:00] VITALS: BP 142/90
[2017-07-11] MEDS: IV NORMAL SALINE 1000ML BAG 1,000 ML IV SCH ×4 (00:20→17:57)
[2017-07-11 03:00] VITALS: BP_SYST 116; BP_SYST 193; BP_DIAS 125
[2017-07-11] MEDS: ENALAPRILAT 2.5 MG/2 ML VIAL. IV PRN (03:30)
[2017-07-11] MEDS: ONDANSETRON ODT 4 MG TAB.RAPDIS. PO SCH ×3 (06:21→21:18)
[2017-07-11] MEDS: oxyCODONE IR 5 MG TABLET PO PRN ×4 (06:27→17:58)
[2017-07-11 07:00] VITALS: BP 190/124
--- NOTE | 2017-07-11 09:12 | PDOC ---
PROGRESS NOTES Subjective Subjective HPI - f/u of Stage 4 colon cancer ROS - has confusion Objective Objective Vital Signs Date Time Temp Pulse Resp B/P (MAP) Pulse Ox O2 Delivery O2 Flow Rate FiO2 07/11/17 07:00 97.5 123 20 190/124 (146) 94 Room Air 97.5 Intake and Output 07/11/17 07:00 Intake Total 4440 ml Balance 4440 ml Intake Oral 1800 ml IV Total 1765 ml Other 875 ml # Voids 8 Physical Exam Heart: Normal S1, Normal S2 General: No acute distress Neck: No JVD Assessment Assessment Problems Medical Problems: (1) Acute pancreatitis Status: Acute (2) Acute renal failure Status: Acute (3) Colon cancer metastasized to multiple sites Status: Acute (4) Hyponatremia Status: Acute (5) Nausea & vomiting Status: Acute IMPRESSION AND PLAN: 1. Stage 4 colon cancer with metastatic lymphadenopathy in the cervical, mediastinal and intraabdominal lymph nodes, which have gotten better. However, there is evidence of slight progression in the abdominal lymph nodes in the most recent CAT scan and left supraclavicular LN palpable. He underwent a lumbar puncture on 06/07/2017, which revealed metastatic adenocarcinoma indicating leptomeningeal disease. I would continue supportive care at this time while he gets radiation therapy. I d/w Dr Suarez for continuation of radiation. Plan chemo next week. 2. 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 He is undergoing radiation therapy. Back pain much better with [employer] pump, but developed confusion and was d/kojo. 3. Acute pancreatitis - appreciate management per Dr Mccray. Comment Review of Relevant I have reviewed the following items gloria (where applicable) has been applied. Labs Laboratory Tests Test 07/10/17 06:30 Sodium Level 131 mmol/L (136-145) Potassium Level 4.2 mmol/L (3.5-5.1) Chloride Level 99 mmol/L (98-107) Carbon Dioxide Level 23 mmol/L (21-32) Anion Gap 9 (6-14) Blood Urea Nitrogen 15 mg/dL (8-26) Creatinine 1.3 mg/dL (0.7-1.3) Estimated GFR (Cockcroft-Gault) 61.5 Glucose Level 67 mg/dL (70-99) Calcium Level 9.0 mg/dL (8.5-10.1) Lipase 1039 U/L (73-393) Microbiology 07/08/17 Blood Culture - Preliminary, Resulted NO GROWTH AFTER 2 DAYS Medications Current Medications Sodium Chloride 1,000 ml @ 1,000 mls/hr 1X ONCE IV Last administered on 07/08 13:36; Start 07/08/17 at 13:30; Stop 07/08/17 at 14:29; Status DC Ondansetron HCl (Zofran) 4 mg 1X ONCE IV Last administered on 07/08/17 13:36 ; Start 07/08/17 at 13:30; Stop 07/08/17 at 13:31; Status DC Morphine Sulfate 4 mg PRN Q15MIN PRN IV/SQ PAIN GREATER THAN 3/10 Last administered on 07/08/17 16:15; Start 07/08/17 at 13:30; Stop 07/08/17 at 19 :53; Status DC Sodium Chloride 1,000 ml @ 3,540 mls/hr Q17M IV ; Start 07/08/17 at 13:34; Stop 07/08/17 at 14:04; Status DC Iohexol (Omnipaque 300 Mg/ml) 60 ml 1X ONCE IV Last administered on 14:29; Start 07/08/17 at 14:30; Stop 07/08/17 at 14:31; Status DC Info (Do NOT chart on this entry -- for MONITORING) 1 each PRN DAILY PRN MC SEE COMMENTS; Start 07/08/17 at 14:30; Stop 07/10/17 at 14:29; Status DC Ondansetron HCl (Zofran) 4 mg PRN Q8HRS PRN IV NAUSEA/VOMITING Last administered on 07/09/17 01:53; Start 07/08/17 at 15:45; Stop 07/09/17 at 07 :26; Status DC Morphine Sulfate 4 mg PRN Q2HR PRN IV PAIN Last administered on 07/09/17 09: 48; Start 07/08/17 at 15:45; Stop 07/09/17 at 09:57; Status DC Sodium Chloride 1,000 ml @ 125 mls/hr Q8H IV Last administered on 07/09/17 08:00; Start 07/08/17 at 16:00; Stop 07/09/17 at 15:59; Status DC Piperacillin Sod/ Tazobactam Sod 4.5 gm/Dextrose 100 ml @ 200 mls/hr 1X ONCE IV ; Start 07/08/17 at 15:45; Stop 07/08/17 at 16:14; Status UNV Levofloxacin/ Dextrose 150 ml @ 100 mls/hr 1X ONCE IV Last administered on 16:20; Start 07/08/17 at 15:45; Stop 07/08/17 at 17:14; Status DC Vancomycin HCl 250 ml @ 250 mls/hr 1X ONCE IV ; Start 07/08/17 at 15:45; Stop 07/08/17 at 16:44; Status UNV Vancomycin HCl 2 gm/Dextrose/ Sodium Chloride 500 ml @ 250 mls/hr 1X ONCE IV Last administered on 07/08/17 18:16; Start 07/08/17 at 16:00; Stop 07/08/17 at 17:59; Status DC Piperacillin Sod/ Tazobactam Sod (Zosyn) 4.5 gm 1X ONCE IVP Last administered on 07/08/17 16:17; Start 07/08/17 at 16:00; Stop 07/08/17 at 16:01; Status DC Labetalol HCl (Normodyne) 20 mg PRN Q6HRS PRN IVP HYPERTENSION, SEE COMMENTS Last administered on 07/08/17 20:37; Start 07/08/17 at 20:00; Stop 07/09/17 at 01:23; Status DC Labetalol HCl (Normodyne) 20 mg PRN Q4HRS PRN IVP HYPERTENSION, SEE COMMENTS Last administered on 07/09/17 01:56; Start 07/09/17 at 01:30 Enalaprilat (Vasotec) 2.5 mg PRN Q6HRS PRN IV ELEVATED BP, SEE COMMENTS Last administered on 07/11/17 03:30; Start 07/09/17 at 05:00 Ondansetron HCl (Zofran) 4 mg PRN Q6HRS PRN IV NAUSEA/VOMITING; Start at 07:30; Stop 07/10/17 at 07:29; Status DC Naloxone HCl (Narcan) 0.4 mg PRN Q2MIN PRN IV SEE INSTRUCTIONS; Start at 10:00 Sodium Chloride 1,000 ml @ 25 mls/hr Q24H IV Last administered on 07/10/17 09:54; Start 07/09/17 at 09:54 Morphine Sulfate 30 ml @ 0 mls/hr CONT PRN PRN IV PROTOCOL Last administered on 07/10/17 10:37; Start 07/09/17 at 10:00; Stop 07/10/17 at 15:52; Status DC Bisacodyl (Dulcolax Supp) 10 mg PRN DAILY PRN [place] CONSTIPATION; Start 07/09/17 at 10:00 Docusate Sodium (Enemeez) 283 mg PRN DAILY PRN [place] CONSTIPATION; Start at 10:00 Famotidine (Pepcid Vial) 20 mg BID IVP Last administered on 07/10/17 21:00; Start 07/09/17 at 11:00 Methylnaltrexone [place] (Relistor) 12 mg 1X ONCE SQ Last administered on 15:54; Start 07/09/17 at 14:15; Stop 07/09/17 at 14:16; Status DC Ondansetron HCl (Zofran) 4 mg PRN Q6HRS PRN IV NAUSEA/VOMITING Last administered on 07/10/17 13:29; Start 07/10/17 at 13:30 Alprazolam (Xanax) 0.5 mg PRN BID PRN PO ANXIETY; Start 07/10/17 at 16:00 Amlodipine Besylate (Norvasc) 10 mg DAILY PO Last administered on 07/10/17 16 :21; Start 07/10/17 at 16:00 Lorazepam (Ativan) 0.5 mg PRN BID PRN PO ANXIETY / AGITATION; Start 07/10/17 at 16:00 Morphine Sulfate (Ms Contin) 15 mg TID PO ; Start 07/10/17 at 16:00; Status Cancel Senna/Docusate Sodium (Senna Plus) 1 tab DAILY PO Last administered on 16:20; Start 07/10/17 at 16:00 Cyclobenzaprine HCl (Flexeril) 5 mg TID PO Last administered on 07/10/17 21: 27; Start 07/10/17 at 16:00 Dexamethasone (Decadron) 2 mg DAILYWBKFT PO Last administered on 07/10/17 16: 22; Start 07/10/17 at 16:00 Pantoprazole Sodium (Protonix) 40 mg DAILYAC PO Last administered on 16:21; Start 07/10/17 at 16:00 Ondansetron HCl (Zofran Odt) 8 mg Q8HRS PO Last administered on 07/11/17 06: 21; Start 07/10/17 at 16:00 Oxycodone HCl (Roxicodone) 10 mg PRN Q2HRS PRN PO PAIN Last administered on 06:27; Start 07/10/17 at 16:00 Oxycodone HCl (OxyCONTIN) 20 mg TID PO Last administered on 07/10/17 21:27; Start 07/10/17 at 16:30 Sodium Chloride 1,000 ml @ 125 mls/hr Q8H IV Last administered on 07/11/17 00:20; Start 07/10/17 at 16:00 Magnesium Hydroxide (Milk Of Magnesia) 2,400 mg PRN DAILY PRN PO CONSTIPATION; Start 07/11/17 at 08:45 Active Scripts Active Oxycontin (Oxycodone HCl) 20 Mg Tab.er.12h 20 Mg PO TID Reported Dexamethasone 2 Mg Tablet 2 Mg PO DAILYWBKFT Cyclobenzaprine Hcl 5 Mg Tablet 5 Mg PO TID Amlodipine Besylate 10 Mg Tablet 10 Mg PO DAILY Morphine Sulfate Er (Morphine Sulfate) 15 Mg Tablet.er 15 Mg PO TID Oxycodone Hcl 10 Mg Tablet 10 Mg PO PO Q 2-4HRS PRN PAIN Alprazolam 0.5 Mg Tablet 1 Tab PO BID PRN Zofran Odt (Ondansetron) 8 Mg Tab.rapdis 1 Tab PO Q8HRS Prilosec Otc (Omeprazole Magnesium) 20 Mg Tablet.dr 20 Mg PO DAILY Stool Softener Tablet (Sennosides/Docusate Sodium) 1 Each Tablet 1 Each PO DAILY Lorazepam 0.5 Mg Tablet 0.5 Mg PO PRN BID PRN Vitals/I & O Vital Sign - Last 24 Hours 07/10/17 07/10/17 07/10/17 07/10/17 10:37 11:07 15:12 15:28 Temp 97.5 97.5 Pulse 90 98 Resp 16 16 18 B/P (MAP) 158/108 (125) 158/110 Pulse Ox 94 O2 Delivery Room Air Room Air Room Air 07/10/17 07/10/17 07/10/17 07/10/17 16:01 16:21 19:00 19:50 Temp 97.9 97.9 Pulse 77 107 Resp 12 20 B/P (MAP) 144/99 141/101 (114) Pulse Ox 98 O2 Delivery Room Air Room Air Room Air 07/10/17 07/10/17 07/11/17 07/11/17 21:27 23:00 01:27 03:00 Temp 98.6 97.1 98.6 97.1 Pulse 91 116 Resp 18 18 18 18 B/P (MAP) 142/90 (107) 193/125 (147) 116/ Pulse Ox 100 98 O2 Delivery Room Air Room Air Room Air Room Air 07/11/17 07/11/17 07/11/17 03:30 06:27 07:00 Temp 97.5 97.5 Pulse 116 123 Resp 18 20 B/P (MAP) 193/125 190/124 (146) Pulse Ox 94 O2 Delivery Room Air Room Air Intake and Output 07/10/17 07/10/17 07/11/17 15:00 23:00 07:00 Intake Total 1275 ml 1415 ml 1750 ml Balance 1275 ml 1415 ml 1750 ml PABLO MCCABE MD Jul 11, 2017 09:12
[2017-07-11] MEDS: CYCLOBENZAPRINE 10 MG TABLET. PO SCH (09:19)
[2017-07-11] MEDS: amLODIPine BESYLATE 10 MG TABLET PO SCH (09:20)
[2017-07-11] MEDS: FAMOTIDINE 20 MG/2 ML VIAL IVP SCH ×2 (09:20→21:17)
[2017-07-11] MEDS: oxyCODONE ER 10 MG TAB.ER.12H PO SCH (09:20)
[2017-07-11] MEDS: DEXAMETHASONE 1 MG TABLET PO SCH (09:20)
[2017-07-11] MEDS: SENNOSIDES/DOCUSATE 8.6/50MG TABLET. PO SCH (09:20)
[2017-07-11] MEDS: PANTOPRAZOLE 40 MG TABLET.DR. PO SCH (09:20)
[2017-07-11] MEDS: LABETALOL 20 MG/4 ML DISP.SYRIN. IVP PRN (09:21)
[2017-07-11] MEDS: MAGNESIUM HYDROXIDE 2,400 MG/30 ML ORAL.SUSP. PO PRN (09:26)
--- NOTE | 2017-07-11 10:22 | PDOC ---
PROGRESS NOTES Chief Complaint Chief Complaint 1. Acute pancreatitis 2. 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 Obesity 5. 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 yesterday, vomiting after liquid diet Pt admitted he thought he was getting "too much medicine" so we switched it back to hsi home pain regimen- as per recommendation of too Pt refused CT head bec he said it was from too much medciation nOw hungry LIpase down to 900s MApping done by rad onc yesterday- couldnt lay still/flat again today bec of pain PLAn: Morphine 4 mgs prn prior to rad therapy BOwel regimen while on narcs TRial of Liquid diet again I am considering pain mx consult to help with pain issues dw RN and family at bedside Vitals Vitals Vital Signs Date Time Temp Pulse Resp B/P (MAP) Pulse Ox O2 Delivery O2 Flow Rate FiO2 07/11/17 09:21 123 190/124 07/11/17 07:00 97.5 20 94 Room Air 97.5 Physical Exam General: Alert, Oriented X3, No acute distress Heart: Normal S1, Normal S2 Lungs: Clear Abdomen: Soft, Other (non tender,no guarding) Extremities: No clubbing, No cyanosis Skin: No rashes, No breakdown Labs LABS Laboratory Tests Test 07/11/17 09:15 Lipase 933 U/L (73-393) Review of Systems Review of Systems back pain Assessment and Plan Assessmemt and Plan Problems Medical Problems: (1) Acute pancreatitis Status: Acute (2) Acute renal failure Status: Acute (3) Colon cancer metastasized to multiple sites Status: Acute (4) Hyponatremia Status: Acute (5) Nausea & vomiting Status: Acute Problems: Comment Review of Relevant I have reviewed the following items gloria (where applicable) has been applied. Labs Laboratory Tests Test 07/10/17 06:30 07/11/17 09:15 Sodium Level 131 mmol/L (136-145) Potassium Level 4.2 mmol/L (3.5-5.1) Chloride Level 99 mmol/L (98-107) Carbon Dioxide Level 23 mmol/L (21-32) Anion Gap 9 (6-14) Blood Urea Nitrogen 15 mg/dL (8-26) Creatinine 1.3 mg/dL (0.7-1.3) Estimated GFR (Cockcroft-Gault) 61.5 Glucose Level 67 mg/dL (70-99) Calcium Level 9.0 mg/dL (8.5-10.1) Lipase 1039 U/L (73-393) 933 U/L (73-393) Laboratory Tests Test 07/11/17 09:15 Lipase 933 U/L (73-393) Microbiology 07/08/17 Blood Culture - Preliminary, Resulted NO GROWTH AFTER 2 DAYS Medications Current Medications Sodium Chloride 1,000 ml @ 1,000 mls/hr 1X ONCE IV Last administered on 07/08 13:36; Start 07/08/17 at 13:30; Stop 07/08/17 at 14:29; Status DC Ondansetron HCl (Zofran) 4 mg 1X ONCE IV Last administered on 07/08/17 13:36 ; Start 07/08/17 at 13:30; Stop 07/08/17 at 13:31; Status DC Morphine Sulfate 4 mg PRN Q15MIN PRN IV/SQ PAIN GREATER THAN 3/10 Last administered on 07/08/17 16:15; Start 07/08/17 at 13:30; Stop 07/08/17 at 19 :53; Status DC Sodium Chloride 1,000 ml @ 3,540 mls/hr Q17M IV ; Start 07/08/17 at 13:34; Stop 07/08/17 at 14:04; Status DC Iohexol (Omnipaque 300 Mg/ml) 60 ml 1X ONCE IV Last administered on 14:29; Start 07/08/17 at 14:30; Stop 07/08/17 at 14:31; Status DC Info (Do NOT chart on this entry -- for MONITORING) 1 each PRN DAILY PRN MC SEE COMMENTS; Start 07/08/17 at 14:30; Stop 07/10/17 at 14:29; Status DC Ondansetron HCl (Zofran) 4 mg PRN Q8HRS PRN IV NAUSEA/VOMITING Last administered on 07/09/17 01:53; Start 07/08/17 at 15:45; Stop 07/09/17 at 07 :26; Status DC Morphine Sulfate 4 mg PRN Q2HR PRN IV PAIN Last administered on 07/09/17 09: 48; Start 07/08/17 at 15:45; Stop 07/09/17 at 09:57; Status DC Sodium Chloride 1,000 ml @ 125 mls/hr Q8H IV Last administered on 07/09/17 08:00; Start 07/08/17 at 16:00; Stop 07/09/17 at 15:59; Status DC Piperacillin Sod/ Tazobactam Sod 4.5 gm/Dextrose 100 ml @ 200 mls/hr 1X ONCE IV ; Start 07/08/17 at 15:45; Stop 07/08/17 at 16:14; Status UNV Levofloxacin/ Dextrose 150 ml @ 100 mls/hr 1X ONCE IV Last administered on 16:20; Start 07/08/17 at 15:45; Stop 07/08/17 at 17:14; Status DC Vancomycin HCl 250 ml @ 250 mls/hr 1X ONCE IV ; Start 07/08/17 at 15:45; Stop 07/08/17 at 16:44; Status UNV Vancomycin HCl 2 gm/Dextrose/ Sodium Chloride 500 ml @ 250 mls/hr 1X ONCE IV Last administered on 07/08/17 18:16; Start 07/08/17 at 16:00; Stop 07/08/17 at 17:59; Status DC Piperacillin Sod/ Tazobactam Sod (Zosyn) 4.5 gm 1X ONCE IVP Last administered on 07/08/17 16:17; Start 07/08/17 at 16:00; Stop 07/08/17 at 16:01; Status DC Labetalol HCl (Normodyne) 20 mg PRN Q6HRS PRN IVP HYPERTENSION, SEE COMMENTS Last administered on 07/08/17 20:37; Start 07/08/17 at 20:00; Stop 07/09/17 at 01:23; Status DC Labetalol HCl (Normodyne) 20 mg PRN Q4HRS PRN IVP HYPERTENSION, SEE COMMENTS Last administered on 07/11/17 09:21; Start 07/09/17 at 01:30 Enalaprilat (Vasotec) 2.5 mg PRN Q6HRS PRN IV ELEVATED BP, SEE COMMENTS Last administered on 07/11/17 03:30; Start 07/09/17 at 05:00 Ondansetron HCl (Zofran) 4 mg PRN Q6HRS PRN IV NAUSEA/VOMITING; Start at 07:30; Stop 07/10/17 at 07:29; Status DC Naloxone HCl (Narcan) 0.4 mg PRN Q2MIN PRN IV SEE INSTRUCTIONS; Start at 10:00 Sodium Chloride 1,000 ml @ 25 mls/hr Q24H IV Last administered on 07/10/17 09:54; Start 07/09/17 at 09:54 Morphine Sulfate 30 ml @ 0 mls/hr CONT PRN PRN IV PROTOCOL Last administered on 07/10/17 10:37; Start 07/09/17 at 10:00; Stop 07/10/17 at 15:52; Status DC Bisacodyl (Dulcolax Supp) 10 mg PRN DAILY PRN NV CONSTIPATION; Start 07/09/17 at 10:00 Docusate Sodium (Enemeez) 283 mg PRN DAILY PRN NV CONSTIPATION; Start at 10:00 Famotidine (Pepcid Vial) 20 mg BID IVP Last administered on 07/11/17 09:20; Start 07/09/17 at 11:00 Methylnaltrexone [place] (Relistor) 12 mg 1X ONCE SQ Last administered on 15:54; Start 07/09/17 at 14:15; Stop 07/09/17 at 14:16; Status DC Ondansetron HCl (Zofran) 4 mg PRN Q6HRS PRN IV NAUSEA/VOMITING Last administered on 07/10/17 13:29; Start 07/10/17 at 13:30 Alprazolam (Xanax) 0.5 mg PRN BID PRN PO ANXIETY; Start 07/10/17 at 16:00 Amlodipine Besylate (Norvasc) 10 mg DAILY PO Last administered on 07/11/17 09 :20; Start 07/10/17 at 16:00 Lorazepam (Ativan) 0.5 mg PRN BID PRN PO ANXIETY / AGITATION; Start 07/10/17 at 16:00 Morphine Sulfate (Ms Contin) 15 mg TID PO ; Start 07/10/17 at 16:00; Status Cancel Senna/Docusate Sodium (Senna Plus) 1 tab DAILY PO Last administered on 09:20; Start 07/10/17 at 16:00 Cyclobenzaprine HCl (Flexeril) 5 mg TID PO Last administered on 07/11/17 09: 19; Start 07/10/17 at 16:00 Dexamethasone (Decadron) 2 mg DAILYWBKFT PO Last administered on 07/11/17 09: 20; Start 07/10/17 at 16:00 Pantoprazole Sodium (Protonix) 40 mg DAILYAC PO Last administered on 09:20; Start 07/10/17 at 16:00 Ondansetron HCl (Zofran Odt) 8 mg Q8HRS PO Last administered on 07/11/17 06: 21; Start 07/10/17 at 16:00 Oxycodone HCl (Roxicodone) 10 mg PRN Q2HRS PRN PO PAIN Last administered on 09:26; Start 07/10/17 at 16:00 Oxycodone HCl (OxyCONTIN) 20 mg TID PO Last administered on 07/11/17 09:20; Start 07/10/17 at 16:30 Sodium Chloride 1,000 ml @ 125 mls/hr Q8H IV Last administered on 07/11/17 09:18; Start 07/10/17 at 16:00 Magnesium Hydroxide (Milk Of Magnesia) 2,400 mg PRN DAILY PRN PO CONSTIPATION Last administered on 07/11/17 09:26; Start 07/11/17 at 08:45 Active Scripts Active Oxycontin (Oxycodone HCl) 20 Mg Tab.er.12h 20 Mg PO TID Reported Dexamethasone 2 Mg Tablet 2 Mg PO DAILYWBKFT Cyclobenzaprine Hcl 5 Mg Tablet 5 Mg PO TID Amlodipine Besylate 10 Mg Tablet 10 Mg PO DAILY Morphine Sulfate Er (Morphine Sulfate) 15 Mg Tablet.er 15 Mg PO TID Oxycodone Hcl 10 Mg Tablet 10 Mg PO PO Q 2-4HRS PRN PAIN Alprazolam 0.5 Mg Tablet 1 Tab PO BID PRN Zofran Odt (Ondansetron) 8 Mg Tab.rapdis 1 Tab PO Q8HRS Prilosec Otc (Omeprazole Magnesium) 20 Mg Tablet.dr 20 Mg PO DAILY Stool Softener Tablet (Sennosides/Docusate Sodium) 1 Each Tablet 1 Each PO DAILY Lorazepam 0.5 Mg Tablet 0.5 Mg PO PRN BID PRN Vitals/I & O Vital Sign - Last 24 Hours 07/10/17 07/10/17 07/10/17 07/10/17 10:37 11:07 15:12 15:28 Temp 97.5 97.5 Pulse 90 98 Resp 16 16 18 B/P (MAP) 158/108 (125) 158/110 Pulse Ox 94 O2 Delivery Room Air Room Air Room Air 07/10/17 07/10/17 07/10/17 07/10/17 16:01 16:21 19:00 19:50 Temp 97.9 97.9 Pulse 77 107 Resp 12 20 B/P (MAP) 144/99 141/101 (114) Pulse Ox 98 O2 Delivery Room Air Room Air Room Air 07/10/17 07/10/17 07/11/17 07/11/17 21:27 23:00 01:27 03:00 Temp 98.6 97.1 98.6 97.1 Pulse 91 116 Resp 18 18 18 18 B/P (MAP) 142/90 (107) 193/125 (147) 116/ Pulse Ox 100 98 O2 Delivery Room Air Room Air Room Air Room Air 07/11/17 07/11/17 07/11/17 07/11/17 03:30 06:27 07:00 09:20 Temp 97.5 97.5 Pulse 116 123 123 Resp 18 20 B/P (MAP) 193/125 190/124 (146) 190/124 Pulse Ox 94 O2 Delivery Room Air Room Air 07/11/17 09:21 Pulse 123 B/P (MAP) 190/124 Intake and Output 07/10/17 07/10/17 07/11/17 15:00 23:00 07:00 Intake Total 1275 ml 1415 ml 1750 ml Balance 1275 ml 1415 ml 1750 ml DINA NAVA MD Jul 11, 2017 10:22
[2017-07-11] MEDS ORDERED: MORPHINE SULFATE 4 MG/ML DISP.SYRIN. IV PRN (10:30)
--- NOTE | 2017-07-11 11:05 | PDOC ---
Objective: Objective: Reviewed w/ nursing staff - confused, has wandered out of room after asking for cigarettes. Reviewed chart - had to back off on [employer], vomiting yesterday but hungry today, plans for full liquids. No stools charted - yesterday he said he had a small stool after Relistor. Vital Signs: Vital Signs Date Time Temp Pulse Resp B/P (MAP) Pulse Ox O2 Delivery O2 Flow Rate FiO2 07/11/17 09:21 123 190/124 07/11/17 07:00 97.5 20 94 Room Air 97.5 Labs: Laboratory Tests Test 07/11/17 09:15 Lipase 933 U/L PE: Out of room. A/P: Metastatic sigmoid carcinoma w/ back pain Pancreatitis - lipase slowly improving Tachycardia, HTN OIC - received Relistor x 1 07/09 Confusion -- Will follow. BILLY VARELA Jul 11, 2017 11:05
[2017-07-11] MEDS: LORazepam 0.5 MG TABLET PO PRN (11:19)
[2017-07-11] MEDS: MORPHINE ER 15 MG TABLET.ER PO SCH ×3 (11:39→21:00)
[2017-07-11 12:18] VITALS: BP 152/98
--- NOTE | 2017-07-11 13:24 | PDOC ---
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 He was delusional yesterday and earlier today after switched to Oxycontin. Now switched to MS Contin. Given 0.5 mg Ativan here to assist in supine positioning for palliative treatment to T4 to T11. Now less delusional but pain not yet sufficiently controlled to allow for treatment as yet when first in Rad Onc department. Impression; Leptomeningeal carcinoma with severe midback pain. Will plan to initiate treatment after MS)4 IR added for acute pain relief. Discussed also with and Dr. Burroughs. CHARAN NELSON MD Jul 11, 2017 13:24
--- NOTE | 2017-07-11 14:51 | PDOC ---
SUBJECTIVE Subjective low back pain OBJECTIVE Objective 37 yo male with 3-day history of projectile vomiting,and increase in back pain. He now also notes low back pain above his previous level,severe enough that he cannot lay down for planned rad therapy Vital Signs Vital Signs Date Time Temp Pulse Resp B/P (MAP) Pulse Ox O2 Delivery O2 Flow Rate FiO2 07/11/17 12:18 98.2 107 20 152/98 (116) 93 Room Air 98.2 07/11/17 09:21 123 190/124 07/11/17 09:20 123 190/124 07/11/17 07:00 97.5 123 20 190/124 (146) 94 Room Air 97.5 07/11/17 06:27 18 Room Air 07/11/17 03:30 116 193/125 07/11/17 03:00 97.1 116 18 193/125 (147) 98 Room Air 97.1 116/ 07/11/17 01:27 18 Room Air 07/10/17 23:00 98.6 91 18 142/90 (107) 100 Room Air 98.6 07/10/17 21:27 18 Room Air 07/10/17 19:50 Room Air 07/10/17 19:00 97.9 107 20 141/101 (114) 98 Room Air 97.9 07/10/17 16:21 77 144/99 07/10/17 16:01 12 Room Air 07/10/17 15:28 98 158/110 07/10/17 15:12 97.5 90 18 158/108 (125) 94 Room Air 97.5 I & O Intake and Output 07/11/17 07:00 Intake Total 4440 ml Balance 4440 ml Intake Oral 1800 ml IV Total 1765 ml Other 875 ml # Voids 8 ASSESSMENT/PLAN Assessment/Plan REC: Agree with current p.o. dosing of ER and IR Mso4/oxycodone . For ability to tolerate RT treatment, Mso4 IV as ordered, or Fentanyl 25-50mcg IV immediately prior to positioning may be more effective. Problems: COMMENT Lab Laboratory Tests Test 07/11/17 09:15 Lipase 933 U/L (73-393) MIGUEL CARO MD Jul 11, 2017 14:51
[2017-07-11 15:16] VITALS: BP 149/108
[2017-07-11 19:07] VITALS: BP 153/116
[2017-07-11 23:00] VITALS: BP 147/104
[2017-07-11] MEDS ORDERED: diphenhydrAMINE HCL 25 MG CAPSULE PO PRN (23:30)
[2017-07-12 03:00] VITALS: BP 185/84
[2017-07-12] MEDS: IV NORMAL SALINE 1000ML BAG 1,000 ML IV SCH ×4 (03:11→23:25)
[2017-07-12] MEDS: oxyCODONE IR 5 MG TABLET PO PRN ×3 (03:28→11:14)
[2017-07-12] MEDS: ONDANSETRON ODT 4 MG TAB.RAPDIS. PO SCH ×3 (05:47→20:17)
[2017-07-12 07:12] VITALS: BP 173/113
[2017-07-12] MEDS: MORPHINE ER 15 MG TABLET.ER PO SCH ×3 (08:48→20:18)
[2017-07-12] MEDS: SENNOSIDES/DOCUSATE 8.6/50MG TABLET. PO SCH ×2 (08:49→20:17)
[2017-07-12] MEDS: amLODIPine BESYLATE 10 MG TABLET PO SCH (08:49)
[2017-07-12] MEDS: PANTOPRAZOLE 40 MG TABLET.DR. PO SCH (08:49)
[2017-07-12] MEDS: FAMOTIDINE 20 MG/2 ML VIAL IVP SCH (08:50)
[2017-07-12] MEDS: LABETALOL 20 MG/4 ML DISP.SYRIN. IVP PRN ×2 (08:50→23:35)
[2017-07-12] MEDS: LORazepam 0.5 MG TABLET PO PRN (10:13)
[2017-07-12 11:11] VITALS: BP 163/116
--- NOTE | 2017-07-12 12:15 | PDOC ---
Objective: Objective: D/w RN - confused, terrible pain, tolerating full liquids. Vital Signs: Vital Signs Date Time Temp Pulse Resp B/P (MAP) Pulse Ox O2 Delivery O2 Flow Rate FiO2 07/12/17 11:14 Room Air 07/12/17 11:11 97.6 91 18 163/116 (132) 95 97.6 PE: GEN: NAD, up to chair LUNGS: clear HEART: RRR ABD: non-tender NEURO/PSYCH: confused A/P: Metastatic sigmoid carcinoma w/ back pain, confusion Pancreatitis OIC - received Relistor x 1 07/09 -- ADAT. ?repeat Relistor - difficult to know how he's feeling ANITA-BILLY WHITE Jul 12, 2017 12:15
--- NOTE | 2017-07-12 12:21 | PDOC ---
Provider Note Provider Note [address] IV sigmoid adenocarcinoma with leptomeningeal recurrence after initial good response to chemotherapy. Admitted with abd pain,N and V with elevated lipase consistent with acute pancreatitis. Currently better overall. Abdominal pain absent, N and V better. Ate some lunch. Back pain well controlled when in specific position. Treatment attempted yesterday but patient tolerance of laying down and equipment issues prevented successful treatment on 07/11/2017. Impression: Leptomeningeal recurrence now with mid to low thoracic level back pain. Previous good response to low dose radiation to C4 to T4 and to T11 to sacrum. Will premedicate adequately for for treatment to begin to T4 To T11 today over 5 day course. CHARAN NELSON MD Jul 12, 2017 12:21
--- NOTE | 2017-07-12 13:48 | PDOC ---
PROGRESS NOTES Chief Complaint Chief Complaint Abd pain ASSESSMENT AND PLAN: 1. Acute pancreatitis: clinically improving. cont full liquid diet, IVF for now. monitor labs 2. 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 Pain control: chronic back pain 2/2 mets. on low dose MSContin TID at home with oxy breakthrough. reestablish home regimen, titrate to comfort. IV breakthrough for emergency 4. Constipation: not well controlled. bowel regimen with ATC and PRN meds, incl relistor. increase SennaS to 2bid 5. Hyponatremia: improving. cont IVF 6. Obesity 7. Prophylaxis: PPI, lovenox History of Present Illness History of Present Illness sleeping, very lethargic when woken (recent IV morphine for XRT sim) Vitals Vitals Vital Signs Date Time Temp Pulse Resp B/P (MAP) Pulse Ox O2 Delivery O2 Flow Rate FiO2 07/12/17 13:03 Room Air 07/12/17 11:11 97.6 91 18 163/116 (132) 95 97.6 Physical Exam General: No acute distress, Other (somnolent) Heart: Regular rate Lungs: Clear Abdomen: Normal bowel sounds, Soft Extremities: No clubbing, No cyanosis Skin: No rashes ERON VO MD Jul 12, 2017 13:48
[2017-07-12] MEDS ORDERED: METHYLNALTREXONE 12 MG/0.6 ML VIAL. SQ PRN (14:15)
[2017-07-12] MEDS ORDERED: MORPHINE SULFATE 4 MG/ML DISP.SYRIN. IV PRN (14:45)
[2017-07-12] MEDS ORDERED: METOCLOPRAMIDE HCL 10 MG/2 ML VIAL. IV PRN (14:45)
[2017-07-12 14:57] VITALS: BP 143/107
[2017-07-12] MEDS ORDERED: MORPHINE SULFATE 2 MG/ML DISP.SYRIN. IV PRN (15:00)
[2017-07-12] MEDS: ENOXAPARIN 40 MG/0.4 ML SYRINGE. SQ SCH (17:38)
--- NOTE | 2017-07-12 17:41 | PDOC ---
PROGRESS NOTES Subjective Subjective HPI - Stage 4 colon cancer ROS- confusion better Objective Objective Vital Signs Date Time Temp Pulse Resp B/P (MAP) Pulse Ox O2 Delivery O2 Flow Rate FiO2 07/12/17 14:57 97.6 109 20 143/107 (119) 96 Room Air 97.6 Intake and Output 07/12/17 07:00 Intake Total 750 ml Balance 750 ml Intake Oral 750 ml # Voids 7 Physical Exam Heart: Normal S1, Normal S2 General: Alert Lungs: Normal air movement Assessment Assessment Problems Medical Problems: (1) Acute pancreatitis Status: Acute (2) Acute renal failure Status: Acute (3) Colon cancer metastasized to multiple sites Status: Acute (4) Hyponatremia Status: Acute (5) Nausea & vomiting Status: Acute IMPRESSION AND PLAN: 1. Stage 4 colon cancer with metastatic lymphadenopathy in the cervical, mediastinal and intraabdominal lymph nodes, which have gotten better. However, there is evidence of slight progression in the abdominal lymph nodes in the most recent CAT scan and left supraclavicular LN palpable. He underwent a lumbar puncture on 06/07/2017, which revealed metastatic adenocarcinoma indicating leptomeningeal disease. I would continue supportive care at this time while he gets radiation therapy. I d/w Dr Suarez for continuation of radiation. Plan chemo in 1-2 week. 2. 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 He is undergoing radiation therapy. 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 Appreciate pain management consult. 3. Acute pancreatitis - appreciate management per Dr Mccray. Comment Review of Relevant I have reviewed the following items gloria (where applicable) has been applied. Labs Laboratory Tests Test 07/11/17 09:15 Lipase 933 U/L (73-393) Microbiology 07/08/17 Blood Culture - Preliminary, Resulted NO GROWTH AFTER 4 DAYS Medications Current Medications Sodium Chloride 1,000 ml @ 1,000 mls/hr 1X ONCE IV Last administered on 07/08 13:36; Start 07/08/17 at 13:30; Stop 07/08/17 at 14:29; Status DC Ondansetron HCl (Zofran) 4 mg 1X ONCE IV Last administered on 07/08/17 13:36 ; Start 07/08/17 at 13:30; Stop 07/08/17 at 13:31; Status DC Morphine Sulfate 4 mg PRN Q15MIN PRN IV/SQ PAIN GREATER THAN 3/10 Last administered on 07/08/17 16:15; Start 07/08/17 at 13:30; Stop 07/08/17 at 19 :53; Status DC Sodium Chloride 1,000 ml @ 3,540 mls/hr Q17M IV ; Start 07/08/17 at 13:34; Stop 07/08/17 at 14:04; Status DC Iohexol (Omnipaque 300 Mg/ml) 60 ml 1X ONCE IV Last administered on 14:29; Start 07/08/17 at 14:30; Stop 07/08/17 at 14:31; Status DC Info (Do NOT chart on this entry -- for MONITORING) 1 each PRN DAILY PRN MC SEE COMMENTS; Start 07/08/17 at 14:30; Stop 07/10/17 at 14:29; Status DC Ondansetron HCl (Zofran) 4 mg PRN Q8HRS PRN IV NAUSEA/VOMITING Last administered on 07/09/17 01:53; Start 07/08/17 at 15:45; Stop 07/09/17 at 07 :26; Status DC Morphine Sulfate 4 mg PRN Q2HR PRN IV PAIN Last administered on 07/09/17 09: 48; Start 07/08/17 at 15:45; Stop 07/09/17 at 09:57; Status DC Sodium Chloride 1,000 ml @ 125 mls/hr Q8H IV Last administered on 07/09/17 08:00; Start 07/08/17 at 16:00; Stop 07/09/17 at 15:59; Status DC Piperacillin Sod/ Tazobactam Sod 4.5 gm/Dextrose 100 ml @ 200 mls/hr 1X ONCE IV ; Start 07/08/17 at 15:45; Stop 07/08/17 at 16:14; Status UNV Levofloxacin/ Dextrose 150 ml @ 100 mls/hr 1X ONCE IV Last administered on 16:20; Start 07/08/17 at 15:45; Stop 07/08/17 at 17:14; Status DC Vancomycin HCl 250 ml @ 250 mls/hr 1X ONCE IV ; Start 07/08/17 at 15:45; Stop 07/08/17 at 16:44; Status UNV Vancomycin HCl 2 gm/Dextrose/ Sodium Chloride 500 ml @ 250 mls/hr 1X ONCE IV Last administered on 07/08/17 18:16; Start 07/08/17 at 16:00; Stop 07/08/17 at 17:59; Status DC Piperacillin Sod/ Tazobactam Sod (Zosyn) 4.5 gm 1X ONCE IVP Last administered on 07/08/17 16:17; Start 07/08/17 at 16:00; Stop 07/08/17 at 16:01; Status DC Labetalol HCl (Normodyne) 20 mg PRN Q6HRS PRN IVP HYPERTENSION, SEE COMMENTS Last administered on 07/08/17 20:37; Start 07/08/17 at 20:00; Stop 07/09/17 at 01:23; Status DC Labetalol HCl (Normodyne) 20 mg PRN Q4HRS PRN IVP HYPERTENSION, SEE COMMENTS Last administered on 07/12/17 08:50; Start 07/09/17 at 01:30 Enalaprilat (Vasotec) 2.5 mg PRN Q6HRS PRN IV ELEVATED BP, SEE COMMENTS Last administered on 07/11/17 03:30; Start 07/09/17 at 05:00 Ondansetron HCl (Zofran) 4 mg PRN Q6HRS PRN IV NAUSEA/VOMITING; Start at 07:30; Stop 07/10/17 at 07:29; Status DC Naloxone HCl (Narcan) 0.4 mg PRN Q2MIN PRN IV SEE INSTRUCTIONS; Start at 10:00 Sodium Chloride 1,000 ml @ 25 mls/hr Q24H IV Last administered on 07/10/17 09:54; Start 07/09/17 at 09:54; Stop 07/12/17 at 14:48; Status DC Morphine Sulfate 30 ml @ 0 mls/hr CONT PRN PRN IV PROTOCOL Last administered on 07/10/17 10:37; Start 07/09/17 at 10:00; Stop 07/10/17 at 15:52; Status DC Bisacodyl (Dulcolax Supp) 10 mg PRN DAILY PRN [place] CONSTIPATION; Start 07/09/17 at 10:00 Docusate Sodium (Enemeez) 283 mg PRN DAILY PRN [place] CONSTIPATION; Start at 10:00 Famotidine (Pepcid Vial) 20 mg BID IVP Last administered on 07/12/17 08:50; Start 07/09/17 at 11:00; Stop 07/12/17 at 14:59; Status DC Methylnaltrexone [place] (Relistor) 12 mg 1X ONCE SQ Last administered on 15:54; Start 07/09/17 at 14:15; Stop 07/09/17 at 14:16; Status DC Ondansetron HCl (Zofran) 4 mg PRN Q6HRS PRN IV NAUSEA/VOMITING Last administered on 07/10/17 13:29; Start 07/10/17 at 13:30; Stop 07/12/17 at 14 :48; Status DC Alprazolam (Xanax) 0.5 mg PRN BID PRN PO ANXIETY Last administered on 16:13; Start 07/10/17 at 16:00; Stop 07/12/17 at 14:48; Status DC Amlodipine Besylate (Norvasc) 10 mg DAILY PO Last administered on 07/12/17 08 :49; Start 07/10/17 at 16:00 Lorazepam (Ativan) 0.5 mg PRN BID PRN PO ANXIETY / AGITATION Last administered on 07/12/17 10:13; Start 07/10/17 at 16:00 Morphine Sulfate (Ms Contin) 15 mg TID PO ; Start 07/10/17 at 16:00; Status Cancel Senna/Docusate Sodium (Senna Plus) 1 tab DAILY PO Last administered on 08:49; Start 07/10/17 at 16:00; Stop 07/12/17 at 14:48; Status DC Cyclobenzaprine HCl (Flexeril) 5 mg TID PO Last administered on 07/11/17 09: 19; Start 07/10/17 at 16:00; Stop 07/11/17 at 11:21; Status DC Dexamethasone (Decadron) 2 mg DAILYWBKFT PO Last administered on 07/11/17 09: 20; Start 07/10/17 at 16:00; Stop 07/11/17 at 11:21; Status DC Pantoprazole Sodium (Protonix) 40 mg DAILYAC PO Last administered on 08:49; Start 07/10/17 at 16:00 Ondansetron HCl (Zofran Odt) 8 mg Q8HRS PO Last administered on 07/12/17 05: 47; Start 07/10/17 at 16:00 Oxycodone HCl (Roxicodone) 10 mg PRN Q2HRS PRN PO PAIN Last administered on 11:14; Start 07/10/17 at 16:00 Oxycodone HCl (OxyCONTIN) 20 mg TID PO Last administered on 07/11/17 09:20; Start 07/10/17 at 16:30; Stop 07/11/17 at 11:21; Status DC Sodium Chloride 1,000 ml @ 100 mls/hr Q10H IV Last administered on 07/12/17 03:11; Start 07/10/17 at 16:00 Magnesium Hydroxide (Milk Of Magnesia) 2,400 mg PRN DAILY PRN PO CONSTIPATION Last administered on 07/11/17 09:26; Start 07/11/17 at 08:45 Morphine Sulfate 4 mg PRN Q2HR PRN IV PAIN Last administered on 07/12/17 13: 03; Start 07/11/17 at 10:30; Stop 07/12/17 at 14:48; Status DC Morphine Sulfate (Ms Contin) 15 mg BID PO Last administered on 07/12/17 08:48 ; Start 07/11/17 at 12:00; Stop 07/12/17 at 14:48; Status DC Diphenhydramine HCl (Benadryl) 25 mg PRN Q6HRS PRN PO ITCHING Last administered on 07/11/17 23:50; Start 07/11/17 at 23:30 Methylnaltrexone [place] (Relistor) 12 mg PRN DAILY PRN SQ CONSTIPATION/no BM; Start 07/12/17 at 14:15 Morphine Sulfate (Ms Contin) 15 mg TID PO ; Start 07/12/17 at 15:00 Morphine Sulfate 4 mg PRN Q2HR PRN IV PAIN; Start 07/12/17 at 14:45 Senna/Docusate Sodium (Senna Plus) 2 tab DAILY PO ; Start 07/13/17 at 09:00; Stop 07/13/17 at 09:00; Status DC Metoclopramide HCl (Reglan Vial) 10 mg PRN Q8HRS PRN IV NAUSEA/VOMITING; Start 07/12/17 at 14:45 Morphine Sulfate 2 mg PRN Q2HR PRN IV PAIN; Start 07/12/17 at 15:00 Senna/Docusate Sodium (Senna Plus) 2 tab BID PO ; Start 07/12/17 at 21:00 Enoxaparin Sodium (Lovenox 40mg Syringe) 40 mg DAILY16 SQ ; Start 07/12/17 at 16:00 Active Scripts Active Oxycontin (Oxycodone HCl) 20 Mg Tab.er.12h 20 Mg PO TID Reported Dexamethasone 2 Mg Tablet 2 Mg PO DAILYWBKFT Cyclobenzaprine Hcl 5 Mg Tablet 5 Mg PO TID Amlodipine Besylate 10 Mg Tablet 10 Mg PO DAILY Morphine Sulfate Er (Morphine Sulfate) 15 Mg Tablet.er 15 Mg PO TID Oxycodone Hcl 10 Mg Tablet 10 Mg PO PO Q 2-4HRS PRN PAIN Alprazolam 0.5 Mg Tablet 1 Tab PO BID PRN Zofran Odt (Ondansetron) 8 Mg Tab.rapdis 1 Tab PO Q8HRS Prilosec Otc (Omeprazole Magnesium) 20 Mg Tablet.dr 20 Mg PO DAILY Stool Softener Tablet (Sennosides/Docusate Sodium) 1 Each Tablet 1 Each PO DAILY Lorazepam 0.5 Mg Tablet 0.5 Mg PO PRN BID PRN Vitals/I & O Vital Sign - Last 24 Hours 07/11/17 07/11/17 07/11/17 07/11/17 19:07 20:00 21:00 23:00 Temp 97.5 98.2 97.5 98.2 Pulse 112 98 Resp 16 16 16 B/P (MAP) 153/116 (128) 147/104 (118) Pulse Ox 94 97 94 O2 Delivery Room Air Room Air Room Air Room Air 07/12/17 07/12/17 07/12/17 07/12/17 01:48 03:00 03:28 07:12 Temp 97.4 98.1 97.9 97.4 98.1 97.9 Pulse 101 108 Resp 16 20 20 B/P (MAP) 185/84 (117) 173/113 (133) Pulse Ox 95 96 O2 Delivery Room Air Room Air Room Air 07/12/17 07/12/17 07/12/17 07/12/17 07:13 08:00 08:30 08:48 Resp 20 O2 Delivery Room Air Room Air Room Air Room Air 07/12/17 07/12/17 07/12/17 07/12/17 08:49 08:50 11:11 11:14 Temp 97.6 97.6 Pulse 108 108 91 Resp 18 B/P (MAP) 173/113 173/113 163/116 (132) Pulse Ox 95 O2 Delivery Room Air Room Air 07/12/17 07/12/17 13:03 14:57 Temp 97.6 97.6 Pulse 109 Resp 20 B/P (MAP) 143/107 (119) Pulse Ox 96 O2 Delivery Room Air Room Air Intake and Output 07/11/17 07/11/17 07/12/17 15:00 23:00 07:00 Intake Total 750 ml Balance 750 ml PABLO MCCABE MD Jul 12, 2017 17:41
[2017-07-12 19:00] VITALS: BP 171/122
[2017-07-12 23:00] VITALS: BP 186/127
[2017-07-13 02:40] VITALS: BP 158/106
[2017-07-13 06:49] LABS: ALBUMIN 2.2 g/dL (3.4-5.0); ALBUMIN/GLOBULIN RATIO 0.5 (1.0-1.7); CALCIUM 8.8 mg/dL (8.5-10.1); CREATININE 1.5 mg/dL (0.7-1.3); GFR 52.1; POTASSIUM 3.8 mmol/L (3.5-5.1); TOTAL BILIRUBIN 0.5 mg/dL (0.2-1.0); TOTAL PROTEIN 6.8 g/dL (6.4-8.2)
[2017-07-13 07:00] VITALS: BP 172/118
[2017-07-13 07:08] LABS: BASO # 0.1 x10^3/uL (0.0-0.2); BASO % 1 % (0-3); EOS % 4 % (0-3); HEMATOCRIT 40.6 % (39.0-53.0); HEMOGLOBIN 13.2 g/dL (13.0-17.5); LYMPH # 0.4 x10^3/uL (1.0-4.8); LYMPH % 4 % (24-48); MEAN CORPUSCULAR HEMOGLOBIN 28 pg (25-35); MEAN CORPUSCULAR HGB CONC 32 g/dL (31-37); MEAN CORPUSCULAR VOLUME 87 fL (79-100); MONO % 14 % (0-9); NEUT % 78 % (31-73); PLATELET COUNT 215 x10^3/uL (140-400); RED BLOOD COUNT 4.65 x10^6/uL (4.30-5.70); RED CELL DISTRIBUTION WIDTH 17.5 % (11.5-14.5); WHITE BLOOD COUNT 9.8 x10^3/uL (4.0-11.0)
[2017-07-13] MEDS: ONDANSETRON ODT 4 MG TAB.RAPDIS. PO SCH ×3 (07:36→22:03)
[2017-07-13] MEDS: PANTOPRAZOLE 40 MG TABLET.DR. PO SCH (07:36)
[2017-07-13] MEDS: amLODIPine BESYLATE 10 MG TABLET PO SCH (08:41)
[2017-07-13] MEDS: SENNOSIDES/DOCUSATE 8.6/50MG TABLET. PO SCH ×2 (08:41→20:51)
[2017-07-13] MEDS: LORazepam 0.5 MG TABLET PO PRN (08:41)
[2017-07-13] MEDS: MORPHINE ER 15 MG TABLET.ER PO SCH ×3 (08:41→20:52)
[2017-07-13] MEDS: LABETALOL 20 MG/4 ML DISP.SYRIN. IVP PRN (08:42)
[2017-07-13] MEDS: MAGNESIUM HYDROXIDE 2,400 MG/30 ML ORAL.SUSP. PO PRN (08:50)
[2017-07-13] MEDS ORDERED: SENNOSIDES/DOCUSATE 8.6/50MG TABLET. PO SCH (09:00)
--- NOTE | 2017-07-13 09:15 | PDOC ---
PROGRESS NOTES Subjective Subjective HPI - Stage 4 colon cancer ROS- delirium is better Objective Objective Vital Signs Date Time Temp Pulse Resp B/P (MAP) Pulse Ox O2 Delivery O2 Flow Rate FiO2 07/13/17 08:42 116 172/118 07/13/17 08:41 Room Air 07/13/17 07:00 97.3 22 96 97.3 Intake and Output 07/13/17 07:00 Intake Total 500 ml Output Total 300 ml Balance 200 ml Intake Oral 500 ml Output Urine Total 300 ml # Voids 2 Physical Exam Heart: Normal S1, Normal S2 General: Alert, Oriented X3, No acute distress Lungs: Clear to auscultation Neuro: Normal speech Assessment Assessment Problems Medical Problems: (1) Acute pancreatitis Status: Acute (2) Acute renal failure Status: Acute (3) Colon cancer metastasized to multiple sites Status: Acute (4) Hyponatremia Status: Acute (5) Nausea & vomiting Status: Acute IMPRESSION AND PLAN: 1. Stage 4 colon cancer with metastatic lymphadenopathy in the cervical, mediastinal and intraabdominal lymph nodes, which have gotten better. However, there is evidence of slight progression in the abdominal lymph nodes in the most recent CAT scan and left supraclavicular LN palpable. He underwent a lumbar puncture on 06/07/2017, which revealed metastatic adenocarcinoma indicating leptomeningeal disease. I would continue supportive care at this time while he gets radiation therapy. I d/w Dr Suarez for continuation of radiation. Plan chemo in 1-2 week if functional status is good. He is deteriorating overall. I will consult palliative care. 2. 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 He is undergoing radiation therapy. 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 Appreciate pain management consult. 3. Acute pancreatitis - appreciate management per Dr Mccray. Comment Review of Relevant I have reviewed the following items glorai (where applicable) has been applied. Labs Laboratory Tests Test 07/11/17 09:15 07/13/17 05:40 Lipase 933 U/L (73-393) 1103 U/L (73-393) White Blood Count 9.8 x10^3/uL (4.0-11.0) Red Blood Count 4.65 x10^6/uL (4.30-5.70) Hemoglobin 13.2 g/dL (13.0-17.5) Hematocrit 40.6 % (39.0-53.0) Mean Corpuscular Volume 87 fL (79-100) Mean Corpuscular Hemoglobin 28 pg (25-35) Mean Corpuscular Hemoglobin Concent 32 g/dL (31-37) Red Cell Distribution Width 17.5 % (11.5-14.5) Platelet Count 215 x10^3/uL (140-400) Neutrophils (%) (Auto) 78 % (31-73) Lymphocytes (%) (Auto) 4 % (24-48) Monocytes (%) (Auto) 14 % (0-9) Eosinophils (%) (Auto) 4 % (0-3) Basophils (%) (Auto) 1 % (0-3) Neutrophils # (Auto) 7.6 x10^3uL (1.8-7.7) Lymphocytes # (Auto) 0.4 x10^3/uL (1.0-4.8) Monocytes # (Auto) 1.4 x10^3/uL (0.0-1.1) Eosinophils # (Auto) 0.4 x10^3/uL (0.0-0.7) Basophils # (Auto) 0.1 x10^3/uL (0.0-0.2) Sodium Level 133 mmol/L (136-145) Potassium Level 3.8 mmol/L (3.5-5.1) Chloride Level 99 mmol/L (98-107) Carbon Dioxide Level 25 mmol/L (21-32) Anion Gap 9 (6-14) Blood Urea Nitrogen 12 mg/dL (8-26) Creatinine 1.5 mg/dL (0.7-1.3) Estimated GFR (Cockcroft-Gault) 52.1 BUN/Creatinine Ratio 8 (6-20) Glucose Level 91 mg/dL (70-99) Calcium Level 8.8 mg/dL (8.5-10.1) Total Bilirubin 0.5 mg/dL (0.2-1.0) Aspartate Amino Transf (AST/SGOT) 21 U/L (15-37) Alanine Aminotransferase (ALT/SGPT) 19 U/L (16-63) Alkaline Phosphatase 65 U/L (46-116) Total Protein 6.8 g/dL (6.4-8.2) Albumin 2.2 g/dL (3.4-5.0) Albumin/Globulin Ratio 0.5 (1.0-1.7) Laboratory Tests Test 07/13/17 05:40 White Blood Count 9.8 x10^3/uL (4.0-11.0) Red Blood Count 4.65 x10^6/uL (4.30-5.70) Hemoglobin 13.2 g/dL (13.0-17.5) Hematocrit 40.6 % (39.0-53.0) Mean Corpuscular Volume 87 fL (79-100) Mean Corpuscular Hemoglobin 28 pg (25-35) Mean Corpuscular Hemoglobin Concent 32 g/dL (31-37) Red Cell Distribution Width 17.5 % (11.5-14.5) Platelet Count 215 x10^3/uL (140-400) Neutrophils (%) (Auto) 78 % (31-73) Lymphocytes (%) (Auto) 4 % (24-48) Monocytes (%) (Auto) 14 % (0-9) Eosinophils (%) (Auto) 4 % (0-3) Basophils (%) (Auto) 1 % (0-3) Neutrophils # (Auto) 7.6 x10^3uL (1.8-7.7) Lymphocytes # (Auto) 0.4 x10^3/uL (1.0-4.8) Monocytes # (Auto) 1.4 x10^3/uL (0.0-1.1) Eosinophils # (Auto) 0.4 x10^3/uL (0.0-0.7) Basophils # (Auto) 0.1 x10^3/uL (0.0-0.2) Sodium Level 133 mmol/L (136-145) Potassium Level 3.8 mmol/L (3.5-5.1) Chloride Level 99 mmol/L (98-107) Carbon Dioxide Level 25 mmol/L (21-32) Anion Gap 9 (6-14) Blood Urea Nitrogen 12 mg/dL (8-26) Creatinine 1.5 mg/dL (0.7-1.3) Estimated GFR (Cockcroft-Gault) 52.1 BUN/Creatinine Ratio 8 (6-20) Glucose Level 91 mg/dL (70-99) Calcium Level 8.8 mg/dL (8.5-10.1) Total Bilirubin 0.5 mg/dL (0.2-1.0) Aspartate Amino Transf (AST/SGOT) 21 U/L (15-37) Alanine Aminotransferase (ALT/SGPT) 19 U/L (16-63) Alkaline Phosphatase 65 U/L (46-116) Total Protein 6.8 g/dL (6.4-8.2) Albumin 2.2 g/dL (3.4-5.0) Albumin/Globulin Ratio 0.5 (1.0-1.7) Lipase 1103 U/L (73-393) Microbiology 07/08/17 Blood Culture - Preliminary, Resulted NO GROWTH AFTER 4 DAYS Medications Current Medications Sodium Chloride 1,000 ml @ 1,000 mls/hr 1X ONCE IV Last administered on 07/08 13:36; Start 07/08/17 at 13:30; Stop 07/08/17 at 14:29; Status DC Ondansetron HCl (Zofran) 4 mg 1X ONCE IV Last administered on 07/08/17 13:36 ; Start 07/08/17 at 13:30; Stop 07/08/17 at 13:31; Status DC Morphine Sulfate 4 mg PRN Q15MIN PRN IV/SQ PAIN GREATER THAN 3/10 Last administered on 07/08/17 16:15; Start 07/08/17 at 13:30; Stop 07/08/17 at 19 :53; Status DC Sodium Chloride 1,000 ml @ 3,540 mls/hr Q17M IV ; Start 07/08/17 at 13:34; Stop 07/08/17 at 14:04; Status DC Iohexol (Omnipaque 300 Mg/ml) 60 ml 1X ONCE IV Last administered on 14:29; Start 07/08/17 at 14:30; Stop 07/08/17 at 14:31; Status DC Info (Do NOT chart on this entry -- for MONITORING) 1 each PRN DAILY PRN MC SEE COMMENTS; Start 07/08/17 at 14:30; Stop 07/10/17 at 14:29; Status DC Ondansetron HCl (Zofran) 4 mg PRN Q8HRS PRN IV NAUSEA/VOMITING Last administered on 07/09/17 01:53; Start 07/08/17 at 15:45; Stop 07/09/17 at 07 :26; Status DC Morphine Sulfate 4 mg PRN Q2HR PRN IV PAIN Last administered on 07/09/17 09: 48; Start 07/08/17 at 15:45; Stop 07/09/17 at 09:57; Status DC Sodium Chloride 1,000 ml @ 125 mls/hr Q8H IV Last administered on 07/09/17 08:00; Start 07/08/17 at 16:00; Stop 07/09/17 at 15:59; Status DC Piperacillin Sod/ Tazobactam Sod 4.5 gm/Dextrose 100 ml @ 200 mls/hr 1X ONCE IV ; Start 07/08/17 at 15:45; Stop 07/08/17 at 16:14; Status UNV Levofloxacin/ Dextrose 150 ml @ 100 mls/hr 1X ONCE IV Last administered on 16:20; Start 07/08/17 at 15:45; Stop 07/08/17 at 17:14; Status DC Vancomycin HCl 250 ml @ 250 mls/hr 1X ONCE IV ; Start 07/08/17 at 15:45; Stop 07/08/17 at 16:44; Status UNV Vancomycin HCl 2 gm/Dextrose/ Sodium Chloride 500 ml @ 250 mls/hr 1X ONCE IV Last administered on 07/08/17 18:16; Start 07/08/17 at 16:00; Stop 07/08/17 at 17:59; Status DC Piperacillin Sod/ Tazobactam Sod (Zosyn) 4.5 gm 1X ONCE IVP Last administered on 07/08/17 16:17; Start 07/08/17 at 16:00; Stop 07/08/17 at 16:01; Status DC Labetalol HCl (Normodyne) 20 mg PRN Q6HRS PRN IVP HYPERTENSION, SEE COMMENTS Last administered on 07/08/17 20:37; Start 07/08/17 at 20:00; Stop 07/09/17 at 01:23; Status DC Labetalol HCl (Normodyne) 20 mg PRN Q4HRS PRN IVP HYPERTENSION, SEE COMMENTS Last administered on 07/13/17 08:42; Start 07/09/17 at 01:30 Enalaprilat (Vasotec) 2.5 mg PRN Q6HRS PRN IV ELEVATED BP, SEE COMMENTS Last administered on 07/11/17 03:30; Start 07/09/17 at 05:00 Ondansetron HCl (Zofran) 4 mg PRN Q6HRS PRN IV NAUSEA/VOMITING; Start at 07:30; Stop 07/10/17 at 07:29; Status DC Naloxone HCl (Narcan) 0.4 mg PRN Q2MIN PRN IV SEE INSTRUCTIONS; Start at 10:00 Sodium Chloride 1,000 ml @ 25 mls/hr Q24H IV Last administered on 07/10/17 09:54; Start 07/09/17 at 09:54; Stop 07/12/17 at 14:48; Status DC Morphine Sulfate 30 ml @ 0 mls/hr CONT PRN PRN IV PROTOCOL Last administered on 07/10/17 10:37; Start 07/09/17 at 10:00; Stop 07/10/17 at 15:52; Status DC Bisacodyl (Dulcolax Supp) 10 mg PRN DAILY PRN [place] CONSTIPATION; Start 07/09/17 at 10:00 Docusate Sodium (Enemeez) 283 mg PRN DAILY PRN [place] CONSTIPATION; Start at 10:00 Famotidine (Pepcid Vial) 20 mg BID IVP Last administered on 07/12/17 08:50; Start 07/09/17 at 11:00; Stop 07/12/17 at 14:59; Status DC Methylnaltrexone [place] (Relistor) 12 mg 1X ONCE SQ Last administered on 15:54; Start 07/09/17 at 14:15; Stop 07/09/17 at 14:16; Status DC Ondansetron HCl (Zofran) 4 mg PRN Q6HRS PRN IV NAUSEA/VOMITING Last administered on 07/10/17 13:29; Start 07/10/17 at 13:30; Stop 07/12/17 at 14 :48; Status DC Alprazolam (Xanax) 0.5 mg PRN BID PRN PO ANXIETY Last administered on 16:13; Start 07/10/17 at 16:00; Stop 07/12/17 at 14:48; Status DC Amlodipine Besylate (Norvasc) 10 mg DAILY PO Last administered on 07/13/17 08: 41; Start 07/10/17 at 16:00 Lorazepam (Ativan) 0.5 mg PRN BID PRN PO ANXIETY / AGITATION Last administered on 07/13/17 08:41; Start 07/10/17 at 16:00 Morphine Sulfate (Ms Contin) 15 mg TID PO ; Start 07/10/17 at 16:00; Status Cancel Senna/Docusate Sodium (Senna Plus) 1 tab DAILY PO Last administered on 08:49; Start 07/10/17 at 16:00; Stop 07/12/17 at 14:48; Status DC Cyclobenzaprine HCl (Flexeril) 5 mg TID PO Last administered on 07/11/17 09: 19; Start 07/10/17 at 16:00; Stop 07/11/17 at 11:21; Status DC Dexamethasone (Decadron) 2 mg DAILYWBKFT PO Last administered on 07/11/17 09: 20; Start 07/10/17 at 16:00; Stop 07/11/17 at 11:21; Status DC Pantoprazole Sodium (Protonix) 40 mg DAILYAC PO Last administered on 07/13/17 07:36; Start 07/10/17 at 16:00 Ondansetron HCl (Zofran Odt) 8 mg Q8HRS PO Last administered on 07/13/17 07:36 ; Start 07/10/17 at 16:00 Oxycodone HCl (Roxicodone) 10 mg PRN Q2HRS PRN PO PAIN Last administered on 11:14; Start 07/10/17 at 16:00 Oxycodone HCl (OxyCONTIN) 20 mg TID PO Last administered on 07/11/17 09:20; Start 07/10/17 at 16:30; Stop 07/11/17 at 11:21; Status DC Sodium Chloride 1,000 ml @ 100 mls/hr Q10H IV Last administered on 07/12/17 23:25; Start 07/10/17 at 16:00 Magnesium Hydroxide (Milk Of Magnesia) 2,400 mg PRN DAILY PRN PO CONSTIPATION Last administered on 07/13/17 08:50; Start 07/11/17 at 08:45 Morphine Sulfate 4 mg PRN Q2HR PRN IV PAIN Last administered on 07/12/17 13: 03; Start 07/11/17 at 10:30; Stop 07/12/17 at 14:48; Status DC Morphine Sulfate (Ms Contin) 15 mg BID PO Last administered on 07/12/17 08:48 ; Start 07/11/17 at 12:00; Stop 07/12/17 at 14:48; Status DC Diphenhydramine HCl (Benadryl) 25 mg PRN Q6HRS PRN PO ITCHING Last administered on 07/11/17 23:50; Start 07/11/17 at 23:30 Methylnaltrexone [place] (Relistor) 12 mg PRN DAILY PRN SQ CONSTIPATION/no BM; Start 07/12/17 at 14:15 Morphine Sulfate (Ms Contin) 15 mg TID PO Last administered on 07/13/17 08:41 ; Start 07/12/17 at 15:00 Morphine Sulfate 4 mg PRN Q2HR PRN IV PAIN; Start 07/12/17 at 14:45 Senna/Docusate Sodium (Senna Plus) 2 tab DAILY PO ; Start 07/13/17 at 09:00; Stop 07/13/17 at 09:00; Status DC Metoclopramide HCl (Reglan Vial) 10 mg PRN Q8HRS PRN IV NAUSEA/VOMITING; Start 07/12/17 at 14:45 Morphine Sulfate 2 mg PRN Q2HR PRN IV PAIN; Start 07/12/17 at 15:00 Senna/Docusate Sodium (Senna Plus) 2 tab BID PO Last administered on 07/13/17 08:41; Start 07/12/17 at 21:00 Enoxaparin Sodium (Lovenox 40mg Syringe) 40 mg DAILY16 SQ Last administered on 07/12/17 17:38; Start 07/12/17 at 16:00 Active Scripts Active Oxycontin (Oxycodone HCl) 20 Mg Tab.er.12h 20 Mg PO TID Reported Dexamethasone 2 Mg Tablet 2 Mg PO DAILYWBKFT Cyclobenzaprine Hcl 5 Mg Tablet 5 Mg PO TID Amlodipine Besylate 10 Mg Tablet 10 Mg PO DAILY Morphine Sulfate Er (Morphine Sulfate) 15 Mg Tablet.er 15 Mg PO TID Oxycodone Hcl 10 Mg Tablet 10 Mg PO PO Q 2-4HRS PRN PAIN Alprazolam 0.5 Mg Tablet 1 Tab PO BID PRN Zofran Odt (Ondansetron) 8 Mg Tab.rapdis 1 Tab PO Q8HRS Prilosec Otc (Omeprazole Magnesium) 20 Mg Tablet.dr 20 Mg PO DAILY Stool Softener Tablet (Sennosides/Docusate Sodium) 1 Each Tablet 1 Each PO DAILY Lorazepam 0.5 Mg Tablet 0.5 Mg PO PRN BID PRN Vitals/I & O Vital Sign - Last 24 Hours 07/12/17 07/12/17 07/12/17 07/12/17 11:11 11:14 12:14 12:48 Temp 97.6 97.6 Pulse 91 Resp 18 B/P (MAP) 163/116 (132) Pulse Ox 95 O2 Delivery Room Air Room Air Room Air Room Air 07/12/17 07/12/17 07/12/17 07/12/17 13:03 14:57 17:38 19:00 Temp 97.6 97.4 97.6 97.4 Pulse 109 97 Resp 20 19 B/P (MAP) 143/107 (119) 171/122 (138) Pulse Ox 96 97 O2 Delivery Room Air Room Air Room Air Room Air 07/12/17 07/12/17 07/12/17 07/12/17 20:00 20:18 23:00 23:35 Temp 97.2 97.2 Pulse 101 101 Resp 20 B/P (MAP) 186/127 (146) 186/127 Pulse Ox 96 O2 Delivery Room Air Room Air Room Air 07/13/17 07/13/17 07/13/17 07/13/17 00:18 02:40 07:00 08:41 Temp 97.1 97.3 97.1 97.3 Pulse 92 116 116 Resp 21 22 B/P (MAP) 158/106 (123) 172/118 (136) 172/118 Pulse Ox 97 96 O2 Delivery Room Air Room Air Room Air 07/13/17 07/13/17 08:41 08:42 Pulse 116 B/P (MAP) 172/118 O2 Delivery Room Air Intake and Output 07/12/17 07/12/17 07/13/17 15:00 23:00 07:00 Intake Total 120 ml 180 ml 200 ml Output Total 300 ml Balance 120 ml -120 ml 200 ml PABLO MCCABE MD Jul 13, 2017 09:15
[2017-07-13 09:44] LABS: % EOS 3 % (0-5); ANISOCYTOSIS PRESENT; PLT ESTIMATE ADEQUATE (ADEQUATE)
[2017-07-13 09:45] LABS: TOXIC GRANULATION PRESENT
[2017-07-13 11:00] VITALS: BP 149/102
[2017-07-13] MEDS: IV NORMAL SALINE 1000ML BAG 1,000 ML IV SCH (14:44)
[2017-07-13 15:00] VITALS: BP 153/111
--- NOTE | 2017-07-13 15:48 | PDOC ---
G I PROGRESS NOTE Subjective Says pain some better (unclear back or abdomen). Says eating. Physical Exam Still seems a little "fuzzy". Lungs clear. RRR Abdomen protuberant, some upper tenderness. Review of Relevant I have reviewed the following items gloria (where applicable) has been applied. Labs Laboratory Tests Test 07/13/17 05:40 White Blood Count 9.8 x10^3/uL (4.0-11.0) Red Blood Count 4.65 x10^6/uL (4.30-5.70) Hemoglobin 13.2 g/dL (13.0-17.5) Hematocrit 40.6 % (39.0-53.0) Mean Corpuscular Volume 87 fL (79-100) Mean Corpuscular Hemoglobin 28 pg (25-35) Mean Corpuscular Hemoglobin Concent 32 g/dL (31-37) Red Cell Distribution Width 17.5 % (11.5-14.5) Platelet Count 215 x10^3/uL (140-400) Neutrophils (%) (Auto) 78 % (31-73) Lymphocytes (%) (Auto) 4 % (24-48) Monocytes (%) (Auto) 14 % (0-9) Eosinophils (%) (Auto) 4 % (0-3) Basophils (%) (Auto) 1 % (0-3) Neutrophils # (Auto) 7.6 x10^3uL (1.8-7.7) Lymphocytes # (Auto) 0.4 x10^3/uL (1.0-4.8) Monocytes # (Auto) 1.4 x10^3/uL (0.0-1.1) Eosinophils # (Auto) 0.4 x10^3/uL (0.0-0.7) Basophils # (Auto) 0.1 x10^3/uL (0.0-0.2) Segmented Neutrophils % 73 % (35-66) Band Neutrophils % 3 % (0-9) Lymphocytes % 5 % (24-48) Atypical Lymphocytes % (Manual) 1 % (0-0) Monocytes % 15 % (0-10) Eosinophils % 3 % (0-5) Toxic Granulation Present Platelet Estimate Adequate (ADEQUATE) Anisocytosis Present Sodium Level 133 mmol/L (136-145) Potassium Level 3.8 mmol/L (3.5-5.1) Chloride Level 99 mmol/L (98-107) Carbon Dioxide Level 25 mmol/L (21-32) Anion Gap 9 (6-14) Blood Urea Nitrogen 12 mg/dL (8-26) Creatinine 1.5 mg/dL (0.7-1.3) Estimated GFR (Cockcroft-Gault) 52.1 BUN/Creatinine Ratio 8 (6-20) Glucose Level 91 mg/dL (70-99) Calcium Level 8.8 mg/dL (8.5-10.1) Total Bilirubin 0.5 mg/dL (0.2-1.0) Aspartate Amino Transf (AST/SGOT) 21 U/L (15-37) Alanine Aminotransferase (ALT/SGPT) 19 U/L (16-63) Alkaline Phosphatase 65 U/L (46-116) Total Protein 6.8 g/dL (6.4-8.2) Albumin 2.2 g/dL (3.4-5.0) Albumin/Globulin Ratio 0.5 (1.0-1.7) Lipase 1103 U/L (73-393) Laboratory Tests Test 07/13/17 05:40 White Blood Count 9.8 x10^3/uL (4.0-11.0) Red Blood Count 4.65 x10^6/uL (4.30-5.70) Hemoglobin 13.2 g/dL (13.0-17.5) Hematocrit 40.6 % (39.0-53.0) Mean Corpuscular Volume 87 fL (79-100) Mean Corpuscular Hemoglobin 28 pg (25-35) Mean Corpuscular Hemoglobin Concent 32 g/dL (31-37) Red Cell Distribution Width 17.5 % (11.5-14.5) Platelet Count 215 x10^3/uL (140-400) Neutrophils (%) (Auto) 78 % (31-73) Lymphocytes (%) (Auto) 4 % (24-48) Monocytes (%) (Auto) 14 % (0-9) Eosinophils (%) (Auto) 4 % (0-3) Basophils (%) (Auto) 1 % (0-3) Neutrophils # (Auto) 7.6 x10^3uL (1.8-7.7) Lymphocytes # (Auto) 0.4 x10^3/uL (1.0-4.8) Monocytes # (Auto) 1.4 x10^3/uL (0.0-1.1) Eosinophils # (Auto) 0.4 x10^3/uL (0.0-0.7) Basophils # (Auto) 0.1 x10^3/uL (0.0-0.2) Segmented Neutrophils % 73 % (35-66) Band Neutrophils % 3 % (0-9) Lymphocytes % 5 % (24-48) Atypical Lymphocytes % (Manual) 1 % (0-0) Monocytes % 15 % (0-10) Eosinophils % 3 % (0-5) Toxic Granulation Present Platelet Estimate Adequate (ADEQUATE) Anisocytosis Present Sodium Level 133 mmol/L (136-145) Potassium Level 3.8 mmol/L (3.5-5.1) Chloride Level 99 mmol/L (98-107) Carbon Dioxide Level 25 mmol/L (21-32) Anion Gap 9 (6-14) Blood Urea Nitrogen 12 mg/dL (8-26) Creatinine 1.5 mg/dL (0.7-1.3) Estimated GFR (Cockcroft-Gault) 52.1 BUN/Creatinine Ratio 8 (6-20) Glucose Level 91 mg/dL (70-99) Calcium Level 8.8 mg/dL (8.5-10.1) Total Bilirubin 0.5 mg/dL (0.2-1.0) Aspartate Amino Transf (AST/SGOT) 21 U/L (15-37) Alanine Aminotransferase (ALT/SGPT) 19 U/L (16-63) Alkaline Phosphatase 65 U/L (46-116) Total Protein 6.8 g/dL (6.4-8.2) Albumin 2.2 g/dL (3.4-5.0) Albumin/Globulin Ratio 0.5 (1.0-1.7) Lipase 1103 U/L (73-393) Microbiology 07/08/17 Blood Culture - Final, Complete NO GROWTH AFTER 5 DAYS Medications Current Medications Sodium Chloride 1,000 ml @ 1,000 mls/hr 1X ONCE IV Last administered on 07/08t 13:36; Start 07/08/17 at 13:30; Stop 07/08/17 at 14:29; Status DC Ondansetron HCl (Zofran) 4 mg 1X ONCE IV Last administered on 07/08/17 13:36 ; Start 07/08/17 at 13:30; Stop 07/08/17 at 13:31; Status DC Morphine Sulfate 4 mg PRN Q15MIN PRN IV/SQ PAIN GREATER THAN 3/10 Last administered on 07/08/17 16:15; Start 07/08/17 at 13:30; Stop 07/08/17 at 19 :53; Status DC Sodium Chloride 1,000 ml @ 3,540 mls/hr Q17M IV ; Start 07/08/17 at 13:34; Stop 07/08/17 at 14:04; Status DC Iohexol (Omnipaque 300 Mg/ml) 60 ml 1X ONCE IV Last administered on 14:29; Start 07/08/17 at 14:30; Stop 07/08/17 at 14:31; Status DC Info (Do NOT chart on this entry -- for MONITORING) 1 each PRN DAILY PRN MC SEE COMMENTS; Start 07/08/17 at 14:30; Stop 07/10/17 at 14:29; Status DC Ondansetron HCl (Zofran) 4 mg PRN Q8HRS PRN IV NAUSEA/VOMITING Last administered on 07/09/17 01:53; Start 07/08/17 at 15:45; Stop 07/09/17 at 07 :26; Status DC Morphine Sulfate 4 mg PRN Q2HR PRN IV PAIN Last administered on 07/09/17 09: 48; Start 07/08/17 at 15:45; Stop 07/09/17 at 09:57; Status DC Sodium Chloride 1,000 ml @ 125 mls/hr Q8H IV Last administered on 07/09/17 08:00; Start 07/08/17 at 16:00; Stop 07/09/17 at 15:59; Status DC Piperacillin Sod/ Tazobactam Sod 4.5 gm/Dextrose 100 ml @ 200 mls/hr 1X ONCE IV ; Start 07/08/17 at 15:45; Stop 07/08/17 at 16:14; Status UNV Levofloxacin/ Dextrose 150 ml @ 100 mls/hr 1X ONCE IV Last administered on 16:20; Start 07/08/17 at 15:45; Stop 07/08/17 at 17:14; Status DC Vancomycin HCl 250 ml @ 250 mls/hr 1X ONCE IV ; Start 07/08/17 at 15:45; Stop 07/08/17 at 16:44; Status UNV Vancomycin HCl 2 gm/Dextrose/ Sodium Chloride 500 ml @ 250 mls/hr 1X ONCE IV Last administered on 07/08/17 18:16; Start 07/08/17 at 16:00; Stop 07/08/17 at 17:59; Status DC Piperacillin Sod/ Tazobactam Sod (Zosyn) 4.5 gm 1X ONCE IVP Last administered on 07/08/17 16:17; Start 07/08/17 at 16:00; Stop 07/08/17 at 16:01; Status DC Labetalol HCl (Normodyne) 20 mg PRN Q6HRS PRN IVP HYPERTENSION, SEE COMMENTS Last administered on 07/08/17 20:37; Start 07/08/17 at 20:00; Stop 07/09/17 at 01:23; Status DC Labetalol HCl (Normodyne) 20 mg PRN Q4HRS PRN IVP HYPERTENSION, SEE COMMENTS Last administered on 07/13/17 08:42; Start 07/09/17 at 01:30 Enalaprilat (Vasotec) 2.5 mg PRN Q6HRS PRN IV ELEVATED BP, SEE COMMENTS Last administered on 07/11/17 03:30; Start 07/09/17 at 05:00 Ondansetron HCl (Zofran) 4 mg PRN Q6HRS PRN IV NAUSEA/VOMITING; Start at 07:30; Stop 07/10/17 at 07:29; Status DC Naloxone HCl (Narcan) 0.4 mg PRN Q2MIN PRN IV SEE INSTRUCTIONS; Start at 10:00 Sodium Chloride 1,000 ml @ 25 mls/hr Q24H IV Last administered on 07/10/17 09:54; Start 07/09/17 at 09:54; Stop 07/12/17 at 14:48; Status DC Morphine Sulfate 30 ml @ 0 mls/hr CONT PRN PRN IV PROTOCOL Last administered on 07/10/17 10:37; Start 07/09/17 at 10:00; Stop 07/10/17 at 15:52; Status DC Bisacodyl (Dulcolax Supp) 10 mg PRN DAILY PRN WI CONSTIPATION; Start 07/09/17 at 10:00 Docusate Sodium (Enemeez) 283 mg PRN DAILY PRN WI CONSTIPATION; Start at 10:00 Famotidine (Pepcid Vial) 20 mg BID IVP Last administered on 07/12/17 08:50; Start 07/09/17 at 11:00; Stop 07/12/17 at 14:59; Status DC Methylnaltrexone Stewardson (Relistor) 12 mg 1X ONCE SQ Last administered on 15:54; Start 07/09/17 at 14:15; Stop 07/09/17 at 14:16; Status DC Ondansetron HCl (Zofran) 4 mg PRN Q6HRS PRN IV NAUSEA/VOMITING Last administered on 07/10/17 13:29; Start 07/10/17 at 13:30; Stop 07/12/17 at 14 :48; Status DC Alprazolam (Xanax) 0.5 mg PRN BID PRN PO ANXIETY Last administered on 16:13; Start 07/10/17 at 16:00; Stop 07/12/17 at 14:48; Status DC Amlodipine Besylate (Norvasc) 10 mg DAILY PO Last administered on 07/13/17 08: 41; Start 07/10/17 at 16:00 Lorazepam (Ativan) 0.5 mg PRN BID PRN PO ANXIETY / AGITATION Last administered on 07/13/17 08:41; Start 07/10/17 at 16:00 Morphine Sulfate (Ms Contin) 15 mg TID PO ; Start 07/10/17 at 16:00; Status Cancel Senna/Docusate Sodium (Senna Plus) 1 tab DAILY PO Last administered on 08:49; Start 07/10/17 at 16:00; Stop 07/12/17 at 14:48; Status DC Cyclobenzaprine HCl (Flexeril) 5 mg TID PO Last administered on 07/11/17 09: 19; Start 07/10/17 at 16:00; Stop 07/11/17 at 11:21; Status DC Dexamethasone (Decadron) 2 mg DAILYWBKFT PO Last administered on 07/11/17 09: 20; Start 07/10/17 at 16:00; Stop 07/11/17 at 11:21; Status DC Pantoprazole Sodium (Protonix) 40 mg DAILYAC PO Last administered on 07/13/17 07:36; Start 07/10/17 at 16:00 Ondansetron HCl (Zofran Odt) 8 mg Q8HRS PO Last administered on 07/13/17 14:42 ; Start 07/10/17 at 16:00 Oxycodone HCl (Roxicodone) 10 mg PRN Q2HRS PRN PO PAIN Last administered on 11:14; Start 07/10/17 at 16:00 Oxycodone HCl (OxyCONTIN) 20 mg TID PO Last administered on 07/11/17 09:20; Start 07/10/17 at 16:30; Stop 07/11/17 at 11:21; Status DC Sodium Chloride 1,000 ml @ 100 mls/hr Q10H IV Last administered on 07/13/17 14:44; Start 07/10/17 at 16:00 Magnesium Hydroxide (Milk Of Magnesia) 2,400 mg PRN DAILY PRN PO CONSTIPATION Last administered on 07/13/17 08:50; Start 07/11/17 at 08:45 Morphine Sulfate 4 mg PRN Q2HR PRN IV PAIN Last administered on 07/12/17 13: 03; Start 07/11/17 at 10:30; Stop 07/12/17 at 14:48; Status DC Morphine Sulfate (Ms Contin) 15 mg BID PO Last administered on 07/12/17 08:48 ; Start 07/11/17 at 12:00; Stop 07/12/17 at 14:48; Status DC Diphenhydramine HCl (Benadryl) 25 mg PRN Q6HRS PRN PO ITCHING Last administered on 07/11/17 23:50; Start 07/11/17 at 23:30 Methylnaltrexone Stewardson (Relistor) 12 mg PRN DAILY PRN SQ CONSTIPATION/no BM; Start 07/12/17 at 14:15 Morphine Sulfate (Ms Contin) 15 mg TID PO Last administered on 07/13/17 14:43 ; Start 07/12/17 at 15:00 Morphine Sulfate 4 mg PRN Q2HR PRN IV PAIN Last administered on 07/13/17 10:23 ; Start 07/12/17 at 14:45 Senna/Docusate Sodium (Senna Plus) 2 tab DAILY PO ; Start 07/13/17 at 09:00; Stop 07/13/17 at 09:00; Status DC Metoclopramide HCl (Reglan Vial) 10 mg PRN Q8HRS PRN IV NAUSEA/VOMITING; Start 07/12/17 at 14:45 Morphine Sulfate 2 mg PRN Q2HR PRN IV PAIN; Start 07/12/17 at 15:00 Senna/Docusate Sodium (Senna Plus) 2 tab BID PO Last administered on 07/13/17 08:41; Start 07/12/17 at 21:00 Enoxaparin Sodium (Lovenox 40mg Syringe) 40 mg DAILY16 SQ Last administered on 07/12/17 17:38; Start 07/12/17 at 16:00 Active Scripts Active Oxycontin (Oxycodone HCl) 20 Mg Tab.er.12h 20 Mg PO TID Reported Dexamethasone 2 Mg Tablet 2 Mg PO DAILYWBKFT Cyclobenzaprine Hcl 5 Mg Tablet 5 Mg PO TID Amlodipine Besylate 10 Mg Tablet 10 Mg PO DAILY Morphine Sulfate Er (Morphine Sulfate) 15 Mg Tablet.er 15 Mg PO TID Oxycodone Hcl 10 Mg Tablet 10 Mg PO PO Q 2-4HRS PRN PAIN Alprazolam 0.5 Mg Tablet 1 Tab PO BID PRN Zofran Odt (Ondansetron) 8 Mg Tab.rapdis 1 Tab PO Q8HRS Prilosec Otc (Omeprazole Magnesium) 20 Mg Tablet.dr 20 Mg PO DAILY Stool Softener Tablet (Sennosides/Docusate Sodium) 1 Each Tablet 1 Each PO DAILY Lorazepam 0.5 Mg Tablet 0.5 Mg PO PRN BID PRN Vitals/I & O Vital Sign - Last 24 Hours 07/12/17 07/12/17 07/12/17 07/12/17 17:38 19:00 20:00 20:18 Temp 97.4 97.4 Pulse 97 Resp 19 B/P (MAP) 171/122 (138) Pulse Ox 97 O2 Delivery Room Air Room Air Room Air Room Air 07/12/17 07/12/17 07/13/17 07/13/17 23:00 23:35 02:40 07:00 Temp 97.2 97.1 97.3 97.2 97.1 97.3 Pulse 101 101 92 116 Resp 20 21 22 B/P (MAP) 186/127 (146) 186/127 158/106 (123) 172/118 (136) Pulse Ox 96 97 96 O2 Delivery Room Air Room Air Room Air 07/13/17 07/13/17 07/13/17 07/13/17 08:00 08:41 08:41 08:42 Pulse 116 116 B/P (MAP) 172/118 172/118 O2 Delivery Room Air Room Air 07/13/17 07/13/17 07/13/17 07/13/17 10:23 10:53 11:00 12:41 Pulse 117 Resp 18 B/P (MAP) 149/102 (118) Pulse Ox 96 95 O2 Delivery Room Air Room Air Room Air Room Air 07/13/17 07/13/17 14:43 15:00 Pulse 117 Resp 18 B/P (MAP) 153/111 (125) Pulse Ox 94 O2 Delivery Room Air Room Air Intake and Output 07/12/17 07/12/17 07/13/17 15:00 23:00 07:00 Intake Total 120 ml 180 ml 200 ml Output Total 300 ml Balance 120 ml -120 ml 200 ml Problem List Problems Medical Problems: (1) Acute pancreatitis Status: Acute (2) Acute renal failure Status: Acute (3) Colon cancer metastasized to multiple sites Status: Acute (4) Hyponatremia Status: Acute (5) Nausea & vomiting Status: Acute Assessment Pancreatitis, cause obscure; perhaps related to his tumor. Constipation, at least in part secondary to narcotics. Plan of Care: Continue current Tx, Mgmt Plan of Care Note Relistor when needed. Will re-evaluate Sunday. Coverage available if needed. IRVIN NAM MD Jul 13, 2017 15:48
--- NOTE | 2017-07-13 17:14 | PDOC2 ---
PALLIATIVE CARE Palliative Care Note Palliative Care Consult requested by Dr. Jernigan to address advance directive, treatment goals Diagnosis: Stage IV colon cancer (Dx. August 2016); leptomeningeal disease; Acute pancreatitis; Acute Renal Failure Met with patient 1035 am. Complained of back pain 6-7 (0-10) Denied nausea, SOB Patient received IV Morphine and was transferred to Radiation Therapy for treatment -[facility] Will start Radiation treatments on Sunday--Brain. Dr. Patel seeing patient for pain management. Patient is alert. Answers questions accurately. Discussed Code Status with patient.--States this something he and his are discussing. States he wants Renetta to be his POA. Met with Renetta at 1500 per request of patient. Patient has step daughter Mercedes, and step son Ok and his . Parents Marlyn and Perez who did not attend meeting. Patient has no biological children. Discussed medical condition. Renetta is well informed of patient's medical condition. Per Renetta she and her have discussed Code Status; "He does not want resuscitation" per Renetta. Patient requested Renetta be his POA. Will compete this document. Renetta requested this be done when just patient and her are in room. Plan is for patient to receive chemotherapy in 1-2 weeks if functional status improves. Renetta understands patient has terminal disease with limited time ("doubt if he will see Carlos") She does not want to prolong suffering. [employer]: important to patient. Member of [employer] Will visit with patient and Renetta to complete DNR/DNI and Advanced Directive. ORLANDO PAVON Jul 13, 2017 17:14
[2017-07-13] MEDS: ENOXAPARIN 40 MG/0.4 ML SYRINGE. SQ SCH (17:50)
--- NOTE | 2017-07-13 18:06 | PDOC ---
PROGRESS NOTES Chief Complaint Chief Complaint Abd pain ASSESSMENT AND PLAN: 1. Acute pancreatitis: clinically improving, lipase remains elevated. ? CA- related. tolerating reg diet. monitor labs 2. 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 appreciate Dr Jernigan's input 3. Pain control: chronic back pain 2/2 mets. on low dose MSContin TID at home with oxy breakthrough. reestablish home regimen, titrate to comfort. IV breakthrough for emergency only 4. Constipation: not well controlled. bowel regimen with ATC and PRN meds, incl relistor. increase SennaS to 2bid 5. Hyponatremia: improving. cont IVF 6. DESTINY: mild spike in creat. unclear etiology, poss 7. HTN: poorly controlled. add BB to Norvasc 8. Prophylaxis: PPI, lovenox History of Present Illness History of Present Illness sitting in chair, eating. appetite is poor. pain controlled. tired Vitals Vitals Vital Signs Date Time Temp Pulse Resp B/P (MAP) Pulse Ox O2 Delivery O2 Flow Rate FiO2 07/13/17 15:00 117 18 153/111 (125) 94 Room Air 07/13/17 07:00 97.3 97.3 Physical Exam General: Alert, Oriented X3, Cooperative, No acute distress Heart: Regular rate Lungs: Clear Abdomen: Normal bowel sounds, Soft Extremities: No clubbing, No cyanosis Skin: No rashes Labs LABS Laboratory Tests Test 07/13/17 05:40 White Blood Count 9.8 x10^3/uL (4.0-11.0) Red Blood Count 4.65 x10^6/uL (4.30-5.70) Hemoglobin 13.2 g/dL (13.0-17.5) Hematocrit 40.6 % (39.0-53.0) Mean Corpuscular Volume 87 fL (79-100) Mean Corpuscular Hemoglobin 28 pg (25-35) Mean Corpuscular Hemoglobin Concent 32 g/dL (31-37) Red Cell Distribution Width 17.5 % (11.5-14.5) Platelet Count 215 x10^3/uL (140-400) Neutrophils (%) (Auto) 78 % (31-73) Lymphocytes (%) (Auto) 4 % (24-48) Monocytes (%) (Auto) 14 % (0-9) Eosinophils (%) (Auto) 4 % (0-3) Basophils (%) (Auto) 1 % (0-3) Neutrophils # (Auto) 7.6 x10^3uL (1.8-7.7) Lymphocytes # (Auto) 0.4 x10^3/uL (1.0-4.8) Monocytes # (Auto) 1.4 x10^3/uL (0.0-1.1) Eosinophils # (Auto) 0.4 x10^3/uL (0.0-0.7) Basophils # (Auto) 0.1 x10^3/uL (0.0-0.2) Segmented Neutrophils % 73 % (35-66) Band Neutrophils % 3 % (0-9) Lymphocytes % 5 % (24-48) Atypical Lymphocytes % (Manual) 1 % (0-0) Monocytes % 15 % (0-10) Eosinophils % 3 % (0-5) Toxic Granulation Present Platelet Estimate Adequate (ADEQUATE) Anisocytosis Present Sodium Level 133 mmol/L (136-145) Potassium Level 3.8 mmol/L (3.5-5.1) Chloride Level 99 mmol/L (98-107) Carbon Dioxide Level 25 mmol/L (21-32) Anion Gap 9 (6-14) Blood Urea Nitrogen 12 mg/dL (8-26) Creatinine 1.5 mg/dL (0.7-1.3) Estimated GFR (Cockcroft-Gault) 52.1 BUN/Creatinine Ratio 8 (6-20) Glucose Level 91 mg/dL (70-99) Calcium Level 8.8 mg/dL (8.5-10.1) Total Bilirubin 0.5 mg/dL (0.2-1.0) Aspartate Amino Transf (AST/SGOT) 21 U/L (15-37) Alanine Aminotransferase (ALT/SGPT) 19 U/L (16-63) Alkaline Phosphatase 65 U/L (46-116) Total Protein 6.8 g/dL (6.4-8.2) Albumin 2.2 g/dL (3.4-5.0) Albumin/Globulin Ratio 0.5 (1.0-1.7) Lipase 1103 U/L (73-393) ERON VO MD Jul 13, 2017 18:06
[2017-07-13 19:00] VITALS: BP 141/102
[2017-07-13] MEDS: METOPROLOL TART IMMED RELEASE 25 MG TABLET. PO SCH (20:52)
[2017-07-13 22:50] VITALS: BP 150/117
[2017-07-14] MEDS: IV NORMAL SALINE 1000ML BAG 1,000 ML IV SCH ×3 (00:35→15:25)
[2017-07-14 03:00] VITALS: BP 161/120
[2017-07-14] MEDS: oxyCODONE IR 5 MG TABLET PO PRN ×4 (04:32→16:22)
[2017-07-14 05:24] LABS: BASO # 0.1 x10^3/uL (0.0-0.2); BASO % 1 % (0-3); EOS % 4 % (0-3); HEMATOCRIT 39.9 % (39.0-53.0); HEMOGLOBIN 13.3 g/dL (13.0-17.5); LYMPH # 0.4 x10^3/uL (1.0-4.8); LYMPH % 4 % (24-48); MEAN CORPUSCULAR HEMOGLOBIN 29 pg (25-35); MEAN CORPUSCULAR HGB CONC 33 g/dL (31-37); MEAN CORPUSCULAR VOLUME 87 fL (79-100); MONO % 13 % (0-9); NEUT % 79 % (31-73); PLATELET COUNT 209 x10^3/uL (140-400); RED BLOOD COUNT 4.59 x10^6/uL (4.30-5.70); RED CELL DISTRIBUTION WIDTH 17.2 % (11.5-14.5); WHITE BLOOD COUNT 9.3 x10^3/uL (4.0-11.0)
[2017-07-14 06:17] LABS: ALBUMIN 2.1 g/dL (3.4-5.0); ALBUMIN/GLOBULIN RATIO 0.5 (1.0-1.7); CALCIUM 8.8 mg/dL (8.5-10.1); CREATININE 1.5 mg/dL (0.7-1.3); GFR 52.1; POTASSIUM 4.1 mmol/L (3.5-5.1); TOTAL BILIRUBIN 0.5 mg/dL (0.2-1.0); TOTAL PROTEIN 6.6 g/dL (6.4-8.2)
[2017-07-14] MEDS: ONDANSETRON ODT 4 MG TAB.RAPDIS. PO SCH ×2 (06:26→14:01)
[2017-07-14 07:10] VITALS: BP 145/118
[2017-07-14] MEDS: PANTOPRAZOLE 40 MG TABLET.DR. PO SCH (08:42)
[2017-07-14] MEDS: MORPHINE ER 15 MG TABLET.ER PO SCH ×2 (08:43→14:01)
[2017-07-14] MEDS: SENNOSIDES/DOCUSATE 8.6/50MG TABLET. PO SCH (08:43)
[2017-07-14] MEDS: amLODIPine BESYLATE 10 MG TABLET PO SCH (08:43)
[2017-07-14] MEDS: METOPROLOL TART IMMED RELEASE 25 MG TABLET. PO SCH (08:44)
[2017-07-14 11:25] VITALS: BP 153/112
[2017-07-14 15:00] VITALS: BP 158/117
[2017-07-14] MEDS ORDERED: OXYC10TA PO (15:11)
[2017-07-14] MEDS ORDERED: MORP15TA3 PO (15:11)
--- NOTE | 2017-07-14 15:42 | PDOC ---
PROGRESS NOTES Subjective Subjective HPI - Stage 4 colon cancer ROS - back pain better Objective Objective Vital Signs Date Time Temp Pulse Resp B/P (MAP) Pulse Ox O2 Delivery O2 Flow Rate FiO2 07/14/17 15:00 98.1 116 16 158/117 (131) 92 Room Air 98.1 Intake and Output 07/14/17 07:00 Intake Total 3060 ml Balance 3060 ml Intake Oral 660 ml IV Total 1200 ml Other 1200 ml # Voids 2 Physical Exam Heart: Normal S1, Normal S2 General: Alert, Oriented X3 Lungs: Clear to auscultation Neuro: Normal speech Psych/Mental Status: Mental status NL Assessment Assessment Problems Medical Problems: (1) Acute pancreatitis Status: Acute (2) Acute renal failure Status: Acute (3) Colon cancer metastasized to multiple sites Status: Acute (4) Hyponatremia Status: Acute (5) Nausea & vomiting Status: Acute IMPRESSION AND PLAN: 1. Stage 4 colon cancer with metastatic lymphadenopathy in the cervical, mediastinal and intraabdominal lymph nodes, which have gotten better. However, there is evidence of slight progression in the abdominal lymph nodes in the most recent CAT scan and left supraclavicular LN palpable. He underwent a lumbar puncture on 06/07/2017, which revealed metastatic adenocarcinoma indicating leptomeningeal disease. I would continue supportive care at this time while he gets radiation therapy. I d/w Dr Suarez for continuation of radiation. Plan chemo in 1-2 week if functional status is good. He is deteriorating overall. Appreciate palliative care eval Agree with DNR Agree with discharge plans, f/u with me nex week. 2. 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 He is undergoing radiation therapy. Back pain much better with MOLD[employer] pump, but developed confusion and was d/kojo. Appreciate pain management consult. 3. Acute pancreatitis - appreciate management per Dr Mccray. Comment Review of Relevant I have reviewed the following items gloria (where applicable) has been applied. Labs Laboratory Tests Test 07/13/17 05:40 07/14/17 04:40 White Blood Count 9.8 x10^3/uL (4.0-11.0) 9.3 x10^3/uL (4.0-11.0) Red Blood Count 4.65 x10^6/uL (4.30-5.70) 4.59 x10^6/uL (4.30-5.70) Hemoglobin 13.2 g/dL (13.0-17.5) 13.3 g/dL (13.0-17.5) Hematocrit 40.6 % (39.0-53.0) 39.9 % (39.0-53.0) Mean Corpuscular Volume 87 fL (79-100) 87 fL (79-100) Mean Corpuscular Hemoglobin 28 pg (25-35) 29 pg (25-35) Mean Corpuscular Hemoglobin Concent 32 g/dL (31-37) 33 g/dL (31-37) Red Cell Distribution Width 17.5 % (11.5-14.5) 17.2 % (11.5-14.5) Platelet Count 215 x10^3/uL (140-400) 209 x10^3/uL (140-400) Neutrophils (%) (Auto) 78 % (31-73) 79 % (31-73) Lymphocytes (%) (Auto) 4 % (24-48) 4 % (24-48) Monocytes (%) (Auto) 14 % (0-9) 13 % (0-9) Eosinophils (%) (Auto) 4 % (0-3) 4 % (0-3) Basophils (%) (Auto) 1 % (0-3) 1 % (0-3) Neutrophils # (Auto) 7.6 x10^3uL (1.8-7.7) 7.3 x10^3uL (1.8-7.7) Lymphocytes # (Auto) 0.4 x10^3/uL (1.0-4.8) 0.4 x10^3/uL (1.0-4.8) Monocytes # (Auto) 1.4 x10^3/uL (0.0-1.1) 1.2 x10^3/uL (0.0-1.1) Eosinophils # (Auto) 0.4 x10^3/uL (0.0-0.7) 0.3 x10^3/uL (0.0-0.7) Basophils # (Auto) 0.1 x10^3/uL (0.0-0.2) 0.1 x10^3/uL (0.0-0.2) Segmented Neutrophils % 73 % (35-66) Band Neutrophils % 3 % (0-9) Lymphocytes % 5 % (24-48) Atypical Lymphocytes % (Manual) 1 % (0-0) Monocytes % 15 % (0-10) Eosinophils % 3 % (0-5) Toxic Granulation Present Platelet Estimate Adequate (ADEQUATE) Anisocytosis Present Sodium Level 133 mmol/L (136-145) 133 mmol/L (136-145) Potassium Level 3.8 mmol/L (3.5-5.1) 4.1 mmol/L (3.5-5.1) Chloride Level 99 mmol/L (98-107) 99 mmol/L (98-107) Carbon Dioxide Level 25 mmol/L (21-32) 23 mmol/L (21-32) Anion Gap 9 (6-14) 11 (6-14) Blood Urea Nitrogen 12 mg/dL (8-26) 13 mg/dL (8-26) Creatinine 1.5 mg/dL (0.7-1.3) 1.5 mg/dL (0.7-1.3) Estimated GFR (Cockcroft-Gault) 52.1 52.1 BUN/Creatinine Ratio 8 (6-20) 9 (6-20) Glucose Level 91 mg/dL (70-99) 95 mg/dL (70-99) Calcium Level 8.8 mg/dL (8.5-10.1) 8.8 mg/dL (8.5-10.1) Total Bilirubin 0.5 mg/dL (0.2-1.0) 0.5 mg/dL (0.2-1.0) Aspartate Amino Transf (AST/SGOT) 21 U/L (15-37) 20 U/L (15-37) Alanine Aminotransferase (ALT/SGPT) 19 U/L (16-63) 16 U/L (16-63) Alkaline Phosphatase 65 U/L (46-116) 64 U/L (46-116) Total Protein 6.8 g/dL (6.4-8.2) 6.6 g/dL (6.4-8.2) Albumin 2.2 g/dL (3.4-5.0) 2.1 g/dL (3.4-5.0) Albumin/Globulin Ratio 0.5 (1.0-1.7) 0.5 (1.0-1.7) Lipase 1103 U/L (73-393) 893 U/L (73-393) Laboratory Tests Test 07/14/17 04:40 White Blood Count 9.3 x10^3/uL (4.0-11.0) Red Blood Count 4.59 x10^6/uL (4.30-5.70) Hemoglobin 13.3 g/dL (13.0-17.5) Hematocrit 39.9 % (39.0-53.0) Mean Corpuscular Volume 87 fL (79-100) Mean Corpuscular Hemoglobin 29 pg (25-35) Mean Corpuscular Hemoglobin Concent 33 g/dL (31-37) Red Cell Distribution Width 17.2 % (11.5-14.5) Platelet Count 209 x10^3/uL (140-400) Neutrophils (%) (Auto) 79 % (31-73) Lymphocytes (%) (Auto) 4 % (24-48) Monocytes (%) (Auto) 13 % (0-9) Eosinophils (%) (Auto) 4 % (0-3) Basophils (%) (Auto) 1 % (0-3) Neutrophils # (Auto) 7.3 x10^3uL (1.8-7.7) Lymphocytes # (Auto) 0.4 x10^3/uL (1.0-4.8) Monocytes # (Auto) 1.2 x10^3/uL (0.0-1.1) Eosinophils # (Auto) 0.3 x10^3/uL (0.0-0.7) Basophils # (Auto) 0.1 x10^3/uL (0.0-0.2) Sodium Level 133 mmol/L (136-145) Potassium Level 4.1 mmol/L (3.5-5.1) Chloride Level 99 mmol/L (98-107) Carbon Dioxide Level 23 mmol/L (21-32) Anion Gap 11 (6-14) Blood Urea Nitrogen 13 mg/dL (8-26) Creatinine 1.5 mg/dL (0.7-1.3) Estimated GFR (Cockcroft-Gault) 52.1 BUN/Creatinine Ratio 9 (6-20) Glucose Level 95 mg/dL (70-99) Calcium Level 8.8 mg/dL (8.5-10.1) Total Bilirubin 0.5 mg/dL (0.2-1.0) Aspartate Amino Transf (AST/SGOT) 20 U/L (15-37) Alanine Aminotransferase (ALT/SGPT) 16 U/L (16-63) Alkaline Phosphatase 64 U/L (46-116) Total Protein 6.6 g/dL (6.4-8.2) Albumin 2.1 g/dL (3.4-5.0) Albumin/Globulin Ratio 0.5 (1.0-1.7) Lipase 893 U/L (73-393) Microbiology 07/08/17 Blood Culture - Final, Complete NO GROWTH AFTER 5 DAYS Medications Current Medications Sodium Chloride 1,000 ml @ 1,000 mls/hr 1X ONCE IV Last administered on 07/08 13:36; Start 07/08/17 at 13:30; Stop 07/08/17 at 14:29; Status DC Ondansetron HCl (Zofran) 4 mg 1X ONCE IV Last administered on 07/08/17 13:36 ; Start 07/08/17 at 13:30; Stop 07/08/17 at 13:31; Status DC Morphine Sulfate 4 mg PRN Q15MIN PRN IV/SQ PAIN GREATER THAN 3/10 Last administered on 07/08/17 16:15; Start 07/08/17 at 13:30; Stop 07/08/17 at 19 :53; Status DC Sodium Chloride 1,000 ml @ 3,540 mls/hr Q17M IV ; Start 07/08/17 at 13:34; Stop 07/08/17 at 14:04; Status DC Iohexol (Omnipaque 300 Mg/ml) 60 ml 1X ONCE IV Last administered on 14:29; Start 07/08/17 at 14:30; Stop 07/08/17 at 14:31; Status DC Info (Do NOT chart on this entry -- for MONITORING) 1 each PRN DAILY PRN MC SEE COMMENTS; Start 07/08/17 at 14:30; Stop 07/10/17 at 14:29; Status DC Ondansetron HCl (Zofran) 4 mg PRN Q8HRS PRN IV NAUSEA/VOMITING Last administered on 07/09/17 01:53; Start 07/08/17 at 15:45; Stop 07/09/17 at 07 :26; Status DC Morphine Sulfate 4 mg PRN Q2HR PRN IV PAIN Last administered on 07/09/17 09: 48; Start 07/08/17 at 15:45; Stop 07/09/17 at 09:57; Status DC Sodium Chloride 1,000 ml @ 125 mls/hr Q8H IV Last administered on 07/09/17 08:00; Start 07/08/17 at 16:00; Stop 07/09/17 at 15:59; Status DC Piperacillin Sod/ Tazobactam Sod 4.5 gm/Dextrose 100 ml @ 200 mls/hr 1X ONCE IV ; Start 07/08/17 at 15:45; Stop 07/08/17 at 16:14; Status UNV Levofloxacin/ Dextrose 150 ml @ 100 mls/hr 1X ONCE IV Last administered on 16:20; Start 07/08/17 at 15:45; Stop 07/08/17 at 17:14; Status DC Vancomycin HCl 250 ml @ 250 mls/hr 1X ONCE IV ; Start 07/08/17 at 15:45; Stop 07/08/17 at 16:44; Status UNV Vancomycin HCl 2 gm/Dextrose/ Sodium Chloride 500 ml @ 250 mls/hr 1X ONCE IV Last administered on 07/08/17 18:16; Start 07/08/17 at 16:00; Stop 07/08/17 at 17:59; Status DC Piperacillin Sod/ Tazobactam Sod (Zosyn) 4.5 gm 1X ONCE IVP Last administered on 07/08/17 16:17; Start 07/08/17 at 16:00; Stop 07/08/17 at 16:01; Status DC Labetalol HCl (Normodyne) 20 mg PRN Q6HRS PRN IVP HYPERTENSION, SEE COMMENTS Last administered on 07/08/17 20:37; Start 07/08/17 at 20:00; Stop 07/09/17 at 01:23; Status DC Labetalol HCl (Normodyne) 20 mg PRN Q4HRS PRN IVP HYPERTENSION, SEE COMMENTS Last administered on 07/13/17 08:42; Start 07/09/17 at 01:30 Enalaprilat (Vasotec) 2.5 mg PRN Q6HRS PRN IV ELEVATED BP, SEE COMMENTS Last administered on 07/11/17 03:30; Start 07/09/17 at 05:00 Ondansetron HCl (Zofran) 4 mg PRN Q6HRS PRN IV NAUSEA/VOMITING; Start at 07:30; Stop 07/10/17 at 07:29; Status DC Naloxone HCl (Narcan) 0.4 mg PRN Q2MIN PRN IV SEE INSTRUCTIONS; Start at 10:00 Sodium Chloride 1,000 ml @ 25 mls/hr Q24H IV Last administered on 07/10/17 09:54; Start 07/09/17 at 09:54; Stop 07/12/17 at 14:48; Status DC Morphine Sulfate 30 ml @ 0 mls/hr CONT PRN PRN IV PROTOCOL Last administered on 07/10/17 10:37; Start 07/09/17 at 10:00; Stop 07/10/17 at 15:52; Status DC Bisacodyl (Dulcolax Supp) 10 mg PRN DAILY PRN NM CONSTIPATION; Start 07/09/17 at 10:00 Docusate Sodium (Enemeez) 283 mg PRN DAILY PRN NM CONSTIPATION; Start at 10:00 Famotidine (Pepcid Vial) 20 mg BID IVP Last administered on 07/12/17 08:50; Start 07/09/17 at 11:00; Stop 07/12/17 at 14:59; Status DC Methylnaltrexone Norton (Relistor) 12 mg 1X ONCE SQ Last administered on 15:54; Start 07/09/17 at 14:15; Stop 07/09/17 at 14:16; Status DC Ondansetron HCl (Zofran) 4 mg PRN Q6HRS PRN IV NAUSEA/VOMITING Last administered on 07/10/17 13:29; Start 07/10/17 at 13:30; Stop 07/12/17 at 14 :48; Status DC Alprazolam (Xanax) 0.5 mg PRN BID PRN PO ANXIETY Last administered on 16:13; Start 07/10/17 at 16:00; Stop 07/12/17 at 14:48; Status DC Amlodipine Besylate (Norvasc) 10 mg DAILY PO Last administered on 07/14/17 08: 43; Start 07/10/17 at 16:00 Lorazepam (Ativan) 0.5 mg PRN BID PRN PO ANXIETY / AGITATION Last administered on 07/13/17 08:41; Start 07/10/17 at 16:00 Morphine Sulfate (Ms Contin) 15 mg TID PO ; Start 07/10/17 at 16:00; Status Cancel Senna/Docusate Sodium (Senna Plus) 1 tab DAILY PO Last administered on 08:49; Start 07/10/17 at 16:00; Stop 07/12/17 at 14:48; Status DC Cyclobenzaprine HCl (Flexeril) 5 mg TID PO Last administered on 07/11/17 09: 19; Start 07/10/17 at 16:00; Stop 07/11/17 at 11:21; Status DC Dexamethasone (Decadron) 2 mg DAILYWBKFT PO Last administered on 07/11/17 09: 20; Start 07/10/17 at 16:00; Stop 07/11/17 at 11:21; Status DC Pantoprazole Sodium (Protonix) 40 mg DAILYAC PO Last administered on 07/14/17 08:42; Start 07/10/17 at 16:00 Ondansetron HCl (Zofran Odt) 8 mg Q8HRS PO Last administered on 07/14/17 14:01 ; Start 07/10/17 at 16:00 Oxycodone HCl (Roxicodone) 10 mg PRN Q2HRS PRN PO PAIN Last administered on 12:05; Start 07/10/17 at 16:00 Oxycodone HCl (OxyCONTIN) 20 mg TID PO Last administered on 07/11/17 09:20; Start 07/10/17 at 16:30; Stop 07/11/17 at 11:21; Status DC Sodium Chloride 1,000 ml @ 100 mls/hr Q10H IV Last administered on 07/14/17 08:46; Start 07/10/17 at 16:00 Magnesium Hydroxide (Milk Of Magnesia) 2,400 mg PRN DAILY PRN PO CONSTIPATION Last administered on 07/13/17 08:50; Start 07/11/17 at 08:45 Morphine Sulfate 4 mg PRN Q2HR PRN IV PAIN Last administered on 07/12/17 13: 03; Start 07/11/17 at 10:30; Stop 07/12/17 at 14:48; Status DC Morphine Sulfate (Ms Contin) 15 mg BID PO Last administered on 07/12/17 08:48 ; Start 07/11/17 at 12:00; Stop 07/12/17 at 14:48; Status DC Diphenhydramine HCl (Benadryl) 25 mg PRN Q6HRS PRN PO ITCHING Last administered on 07/11/17 23:50; Start 07/11/17 at 23:30 Methylnaltrexone Norton (Relistor) 12 mg PRN DAILY PRN SQ CONSTIPATION/no BM; Start 07/12/17 at 14:15 Morphine Sulfate (Ms Contin) 15 mg TID PO Last administered on 07/14/17 14:01 ; Start 07/12/17 at 15:00 Morphine Sulfate 4 mg PRN Q2HR PRN IV PAIN Last administered on 07/13/17 10:23 ; Start 07/12/17 at 14:45; Stop 07/13/17 at 18:04; Status DC Senna/Docusate Sodium (Senna Plus) 2 tab DAILY PO ; Start 07/13/17 at 09:00; Stop 07/13/17 at 09:00; Status DC Metoclopramide HCl (Reglan Vial) 10 mg PRN Q8HRS PRN IV NAUSEA/VOMITING; Start 07/12/17 at 14:45 Morphine Sulfate 2 mg PRN Q2HR PRN IV PAIN; Start 07/12/17 at 15:00 Senna/Docusate Sodium (Senna Plus) 2 tab BID PO Last administered on 07/14/17 08:43; Start 07/12/17 at 21:00 Enoxaparin Sodium (Lovenox 40mg Syringe) 40 mg DAILY16 SQ Last administered on 07/13/17 17:50; Start 07/12/17 at 16:00 Metoprolol Tartrate (Lopressor) 25 mg BID PO Last administered on 07/14/17 08: 44; Start 07/13/17 at 21:00 Heparin Sodium (Porcine) (Hep Lock Adult) 500 unit 1X ONCE IV ; Start 07/14/17 at 15:45; Stop 07/14/17 at 15:46 Active Scripts Active Morphine Sulfate Er (Morphine Sulfate) 15 Mg Tablet.er 15 Mg PO TID Oxycodone Hcl 10 Mg Tablet 10 Mg PO Q4HRS PRN Oxycontin (Oxycodone HCl) 20 Mg Tab.er.12h 20 Mg PO TID Reported Dexamethasone 2 Mg Tablet 2 Mg PO DAILYWBKFT Cyclobenzaprine Hcl 5 Mg Tablet 5 Mg PO TID Amlodipine Besylate 10 Mg Tablet 10 Mg PO DAILY Alprazolam 0.5 Mg Tablet 1 Tab PO BID PRN Zofran Odt (Ondansetron) 8 Mg Tab.rapdis 1 Tab PO Q8HRS Prilosec Otc (Omeprazole Magnesium) 20 Mg Tablet.dr 20 Mg PO DAILY Stool Softener Tablet (Sennosides/Docusate Sodium) 1 Each Tablet 1 Each PO DAILY Lorazepam 0.5 Mg Tablet 0.5 Mg PO PRN BID PRN Vitals/I & O Vital Sign - Last 24 Hours 07/13/17 07/13/17 07/13/17 07/13/17 19:00 20:05 20:52 20:52 Temp 98.1 98.1 Pulse 125 125 Resp 18 18 B/P (MAP) 141/102 (115) 141/102 Pulse Ox 90 O2 Delivery Room Air Room Air Room Air 07/13/17 07/14/17 07/14/17 07/14/17 22:50 00:52 03:00 04:32 Temp 98.1 97.9 98.1 97.9 Pulse 118 120 Resp 18 18 18 18 B/P (MAP) 150/117 (128) 161/120 (134) Pulse Ox 94 94 O2 Delivery Room Air Room Air Room Air 07/14/17 07/14/17 07/14/17 07/14/17 05:32 07:10 08:00 08:00 Temp 98.1 98.1 Pulse 111 Resp 18 18 B/P (MAP) 145/118 (127) Pulse Ox 93 O2 Delivery Room Air Room Air Room Air 07/14/17 07/14/17 07/14/17 07/14/17 08:43 08:43 08:43 08:44 Pulse 111 111 Resp 18 B/P (MAP) 145/118 145/118 O2 Delivery Room Air Room Air 07/14/17 07/14/17 07/14/17 07/14/17 11:25 12:05 13:20 13:20 Temp 98.1 98.1 Pulse 104 Resp 18 B/P (MAP) 153/112 (126) Pulse Ox 93 O2 Delivery Room Air Room Air Room Air Room Air 07/14/17 07/14/17 14:01 15:00 Temp 98.1 98.1 Pulse 116 Resp 16 B/P (MAP) 158/117 (131) Pulse Ox 92 O2 Delivery Room Air Room Air Intake and Output 07/13/17 07/13/17 07/14/17 15:00 23:00 07:00 Intake Total 3060 ml Balance 3060 ml PABLO MCCABE MD Jul 14, 2017 15:42
[2017-07-14] MEDS ORDERED: HEPARIN PF 500 UNIT/5 ML DISP.SYRIN. IV ONE (15:45)
[2017-07-14] MEDS: ENOXAPARIN 40 MG/0.4 ML SYRINGE. SQ SCH (16:00)
== END 2017-07-14 16:45 | disposition home or self-care (01) | DRG 439 ==
LOC: ER 12:30 → 4 NORTH 15:26
PROVIDERS: ADMIT Internal Medicine; ATTEND Internal Medicine
DX: K85.90 Acute pancreatitis without necrosis or infection, unspecified (principal); C18.7 Malignant neoplasm of sigmoid colon; N17.9 Acute kidney failure, unspecified; K92.0 Hematemesis; C79.49 Secondary malignant neoplasm of other parts of nervous system; C77.9 Secondary and unspecified malignant neoplasm of lymph node, unspecified; K21.9 Gastro-esophageal reflux disease without esophagitis; C79.51 Secondary malignant neoplasm of bone; E87.1 Hypo-osmolality and hyponatremia; N13.2 Hydronephrosis with renal and ureteral calculous obstruction; E66.9 Obesity, unspecified; Z66 Do not resuscitate; F17.210 Nicotine dependence, cigarettes, uncomplicated; G89.29 Other chronic pain; I10 Essential (primary) hypertension; K43.9 Ventral hernia without obstruction or gangrene; K59.03 Drug induced constipation; T40.605A Adverse effect of unspecified narcotics, initial encounter; Z53.20 Procedure and treatment not carried out because of patient's decision for unspecified reasons; Z51.5 Encounter for palliative care; Z80.42 Family history of malignant neoplasm of prostate; Z82.49 Family history of ischemic heart disease and other diseases of the circulatory system; Z85.038 Personal history of other malignant neoplasm of large intestine; Z90.49 Acquired absence of other specified parts of digestive tract; Z92.21 Personal history of antineoplastic chemotherapy; Z92.3 Personal history of irradiation; Z88.8 Allergy status to other drugs, medicaments and biological substances
CPT/HCPCS: 36415; 71010; 74177; 77290; 77295; 77300; 77334; 77387; 77412; 80048; 80053; 81001; 83605; 83690; 83735; 84484; 85007; 85025; 87040; 93005; 96361; 96374; 96375; 96376; J1650; J1956; J2212; J2270; J2405; J2543; J3370; J3490; J7030; Q0162; Q0163; Q9967; S0028; 99285-25